=== PATIENT | female | born 1960 | race Caucasian/White ===

== ENCOUNTER → 2016-06-30 | Outpatient (CLI) | payer OTHER ==
[~2016-06-30] MED LIST: AMPH20TA2 PO; ATOR-24 PO; CETI10TA84 PO; CLX40 PO; CYCL10TA6 PO; DOXY100C76 PO; ERGO500037 PO; FERR1TAB13 PO; FLUT0.15; INSDGIPEN SC; INSUINJ4 SQ; IPRA0.06 NAE; LEVO25TA5 PO; MONT1TAB3 PO; NORT10CA2 PO; NORT50CA PO; NVLG SC; NVLGI SC; NYSCR30 EXT; ONDA4TAB46 PO; OXYC-57 PO; PANT40TA PO; PSEU30TA20 PO; RIZA10TA18 PO; RQP/2 PO; VTMD PO; ZOLP10TA PO
[2016-06-30 13:27] LABS: CALCIUM 9.7 mg/dl (8.5-10.1)
[2016-06-30 13:31] LABS: ALT/SGPT 26 U/L (12-78); AST/SGOT 15 U/L (15-37); BLOOD UREA NITROGEN 12 mg/dl (7-18); CARBON DIOXIDE 24 mmol/L (21-32); CHLORIDE 104 mmol/L (98-107); CREATININE 0.93 mg/dl (0.60-1.20); GLUCOSE 166 mg/dl (70-99); POTASSIUM 4.4 mmol/L (3.5-5.1); SODIUM 136 mmol/L (136-145)
[2016-06-30 13:40] LABS: ALB/GLOB RATIO 1.2 (0.9-2); ALKALINE PHOSPHATASE 121 U/L (45-117)
[2016-06-30 14:15] LABS: ESTIMATED AVERAGE GLUCOSE 194 mg/dl; HA1C FLAG Normal (Normal)
== END | disposition home or self-care (01) ==
LOC: C.LAB1850 11:47
PROVIDERS: ATTEND Nurse Practitioner Adult Health
DX: I10 Essential (primary) hypertension (principal); E78.5 Hyperlipidemia, unspecified; E11.9 Type 2 diabetes mellitus without complications

== ENCOUNTER → 2016-08-31 | Outpatient (CLI) | payer OTHER ==
[2016-08-31 17:38] LABS: BLOOD UREA NITROGEN 12 mg/dl (7-18); CREATININE 0.87 mg/dl (0.60-1.20)
== END | disposition home or self-care (01) ==
LOC: C.LAB1850 16:51
PROVIDERS: ATTEND Physician Assistant
DX: E11.9 Type 2 diabetes mellitus without complications (principal)

== ENCOUNTER → 2016-09-02 | Outpatient (CLI) | payer OTHER ==
[~2016-09-02] MED LIST changes: +GADAVIST IV PRN
--- NOTE | 2016-09-02 16:36 | DIAGNOSTIC IMAGING REPORT ---
Brain MRI WITH AND WITHOUT CONTRAST HISTORY: Chronic headaches. R41.3 Memory lossR93.8 Abnormal TECHNIQUE: Multiplanar multisequence MRI of the brain was performed both before and after the intravenous administration of contrast. COMPARISON STUDY: None. FINDINGS: There are no areas of restricted diffusion to suggest acute infarction. The midline structures are intact. The paranasal sinuses are clear. The mastoid air cells are clear. The ventricles and sulci are within normal limits for age. There is no mass, hematoma, midline shift. The major vascular flow-voids at the skull base are well maintained. Postcontrast sequences show no areas of abnormal enhancement. There are few scattered punctate foci of T2 hyperintensity seen within the white matter of the supratentorial brain. Best seen on axial image 8 of 22 there is an accessory artery extending from the right intracranial internal carotid artery to the basilar artery. This is consistent with a persistent trigeminal artery. IMPRESSION: 1. No acute intracranial abnormality. 2. A few punctate scattered foci of T2 hyperintensity seen within the periventricular and subcortical white matter are nonspecific but favor mild microvascular ischemic change. Migraines or Lyme disease could also have a similar appearance. 3. 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 Electronically signed by: Jerad Green M.D. 09/02/2016 4:34 PM Dictated Date/Time: 09/02/2016 4:27 PM
== END | disposition home or self-care (01) ==
LOC: C.MRI 15:34
PROVIDERS: ATTEND Physician Assistant
DX: R41.3 Other amnesia (principal); R93.8 Abnormal findings on diagnostic imaging of other specified body structures

== ENCOUNTER → 2016-10-23 | Outpatient (CLI) | payer OTHER ==
[~2016-10-23] MED LIST changes: -GADAVIST IV PRN
[2016-10-23 18:46] LABS: CHOLESTEROL/HDL RATIO 3.9; THYROID STIMULATING HORMONE 0.506 uIu/ml (0.300-4.500)
[2016-10-24 07:04] LABS: ESTIMATED AVERAGE GLUCOSE 212 mg/dl; HA1C FLAG Normal (Normal)
== END | disposition home or self-care (01) ==
LOC: C.LAB1850 16:58
PROVIDERS: ATTEND Nurse Practitioner Adult Health
DX: E11.9 Type 2 diabetes mellitus without complications (principal); E78.5 Hyperlipidemia, unspecified; E03.9 Hypothyroidism, unspecified; E55.9 Vitamin D deficiency, unspecified

== ENCOUNTER → 2016-11-13 | Outpatient (CLI) | payer OTHER ==
[~2016-11-13] VITALS: Ht 160 cm; Wt 76.3 kg
[2016-11-13 15:13] VITALS: BP 123/79; PULSE 118; Ht 160 cm; Wt 76.3 kg
== END | disposition home or self-care (01) ==
LOC: C.NEUR 15:03
PROVIDERS: ATTEND Internal Medicine Pulmonary Disease
DX: G47.30 Sleep apnea, unspecified (principal)

== ENCOUNTER → 2016-11-16 | Outpatient (CLI) | payer OTHER ==
--- NOTE | 2016-11-17 06:14 | PAP/PSG TECHNICIAN REPORT ---
[facility] Geospatial Intelligence Analyst Polysomnogram Report Study name: None Report date: 11/17/2016 Study date: 11/16/2016 Referring Physician: Anderson Isaac M.D. Name: JUDY RICHARDSON Interpreting Physician: Anderson Isaac M.D. Date of : 1960 Geospatial Intelligence Analyst: Asmita Mckeon RPS. Sex: Female Age: 56 StudyType: PSG Weight: 168 lbs Height: 56 years, Height 5' 3" Neck Circum: 15 inches BMI: 29.76 Medications: Josefina tabs, Atorvastatin Calcium 40 mg, Celexa 40 mg, Cyclobenzaprine 10 mg, Flonase 50 MCG/ACT, Ipratropium [place] 0.06%, Lamotrigine 25 mg, Levothyroxine Sodium 25 MCG, NovoLog, Nystatin, Ondansetron 4 mg, Oxycodone-Acetaminophen 5-325 mg, Protonix 40 mg, Rizatriptan Benzoate 10 mg, Ropinerole 2 mg, Sudafed, Vitamin D, Zolpidem Tartrate 10 mg Patient History 56 yr. old female here for a diagnostic sleep study in room 5. Patient has used CPAP in the past, however she was not compliant. She would like to switch DME's and restart treatment with proper mask. Patients [place] Sleepiness Scale Score is 5/24. Parameters Monitored NPSG: E1-M2, E2-M1, Fp1-M2, Fp2-M1, F3-M2, F4-M2, F4-M1, C3-M2, C4-M2, C4-M1, O1-M2, O2-M2, O2-M1, T3-M2, T4-M1, P3-M2, P4-M1, CHIN1, CHIN2, HR, EKG, Legs, PFLOW, SNOR, FLOW, CFLOW, Tidal Volume, THOR, ABDO, SpO2, PLTH, CPRESS, ETCO2 Wave, ETCO2, pH Sleep Architecture Sleep Stages Time at Lights Off 10:02:29 PM STAGES Time (min.) TST (%) Time at Lights On 5:31:59 AM Wake 62.5 -- Total Recording Time (TRT) 449.50 min. N1 44.0 11 Total Sleep Period (TSP) 445.5 min. N2 298.5 77 Total Sleep Time (TST) 387.0min. N3 44.5 11 Awake Time 62.5 min. REM 0.0 0 Wake after Sleep Onset 58.5 min. Sleep Efficiency (SE) 86 % Sleep Onset Latency (KIKI) 4.0 min. Number of Stage 1 Shifts None Awakenings 46 Stage Changes 174 Number of REM periods N/A REM 0.0 0 REM Latency NONE min. NREM 387.0 100 Body Position Analysis Supine Right Left Side Prone Vertical Total Sleep Time (min.) 86.4 45.6 268.0 313.64 0.0 0.0 Total Sleep Time (%) 19% 12% 69% 81 0% N/A% Total Sleep Time REM (min.) 0.0 0.0 0.0 None 0.0 0.0 Total Sleep Time NREM (min.) 73.4 45.6 268.0 None 0.0 0.0 Intermittent Wake (min.) 13.1 7.8 41.6 None 0.0 0.0 Total Sleep Period (%) 19% None None None None None Arousals Myoclonus (PLM) * Events Count Index Events Count Index Spontaneous 8 1 Events Awake (PLMW) 41 39.4 Respiratory 13 2.9 Events Asleep w/ Arousal (PLMA) 10 1.6 PLM 9 2 Events Asleep w/o Arousal (PLMS) 50 7.8 Snoring 20 3 Total Asleep 60 9.3 Total 49 8 Total 101 13 Respiratory Analysis * CA OA MA CH H RERA Total Count 7 3 3 0 165 0 178 Index 1.1 0.5 0.5 0 25.6 0 27.6 Mean Duration 11.2 15.5 12.9 0.00 18.7 0.0 18.2 Longest Duration 12.5 17.6 15.8 0.00 15.8 0.0 57.7 Respiratory Event Summary Total Supine ~Supine Right Left Prone REM NREM Apneas Count 13 8 5 0 5 N/A N/A 13 Index 2.0 7 1 0.0 1.1 N/A N/A 2 Hypopneas (4% Desat) Count 165 36 129 3 126 N/A N/A 165 Index 25.6 29.4 25 3.9 28.2 N/A N/A 25.6 Apneas & All Hypopneas Count 178 44 134 3 131 N/A N/A 178 Index 27.6 36 26 4 29 N/A N/A 27.6 Respiratory Events (Space And Storage Clerk+All Hyp+RERA) Count 178 44 134 3 131 N/A N/A 178 Index 27.6 36 26 3.9 29.3 N/A N/A 27.6 Respiratory Related Arousal Count 13 44 14 2 12 N/A N/A 19 Index 2.9 4 3 3 3 N/A N/A 3 Snoring Analysis Supine Right Left Prone REM NREM Total Snore duration 29.5 min Snores count 164 54 1,104 N/A N/A 1,322 1,322 Snore mean duration 1.3 Sec Snores index 134 71 247 N/A N/A 205.0 205.0 TST with snoring (%) 7.6% Desaturation Event Summary: Minimum %SpO2 Event Count Mean/Min/Max Duration(sec.) Desaturation Index % Time In Bed > 90 231 25.4 / 7.0 / 60.0 61.8 50.2 86 - 90 44 25.3 / 8.5 / 57.5 12.1 48.8 81 - 85 0 N/A 0.0 1.0 76 - 80 0 N/A 0.0 0.0 71 - 75 0 N/A 0.0 0.0 66 - 70 0 N/A 0.0 0.0 61 - 65 0 N/A 0.0 0.0 56 - 60 0 N/A 0.0 0.0 51 - 55 0 N/A 0.0 0.0 < 50 0 N/A 0.0 0.0 Total REM NREM Awake <50% 0.0 min. 0.0 min. 0.0 min. 0.0 min. 51 - 60% 0.0 min. 0.0 min. 0.0 min. 0.0 min. 61 - 70% 0.0 min. 0.0 min. 0.0 min. 0.0 min. 71 - 80% 0.0 min. 0.0 min. 0.0 min. 0.0 min. 81 - 90% 222.4 min. 0.0 min. 204.2 min. 18.3 min. 91 - 100% 224.4 min. 0.0 min. 182.3 min. 42.1 min. Average 91 0 90 92 Minimum SpO2 84 N/A 84 84 Desaturation Event Index 32.6 0.0 33.2 33.6 # Desat. Events below 89% 103 N/A 91 12 Time(%) with Saturation below 89% 20.3 0.0 18.7 1.6 Time(min.) with Saturation below 89% 90.8 0.0 83.5 7.3 Time (mins) REM (mins) NREM (mins) % of TST SpO2 Below 90% 184 N/A N184 35.0 SpO2 Below 88% 40 0 0 11 Heart Rate Analysis Min (bpm) Max (bpm) Average (bpm) Awake 82 110 97 NREM 82 107 94 REM N/A N/A N/A Overall 82 107 94 Supplemental O2 Values Minimum O2 level: None Value Start Time End Time Geospatial Intelligence Analyst Comments MS. Richardson slept in the right, left, and supine positions. No cardiac arrhythmia or PLMs noted. No bruxism noted. Snoring was noted and scored as a 4 on a scale of 0 through 5. (0=no snoring, 5=snoring loud enough to be heard through a closed door or down the lopez way) MS. Richardson did not wake to use the restroom during the night. She did have a long wake period, that when she checked her blood sugar it was low and had a snack. The final report will be interpreted and signed by a sleep physician. The completed physician report will then be placed in the patient medical record. Therapy (cm H2O) 0 TIB (min.) 449.5 TST (min.) 387.0 Sleep Onset (min.) 4.0 REM Onset From Sleep (min.) NONE Sleep Efficiency % 86 Wakefulness (%) 14 Wakefulness (min.) 62.5 NREM 1 (%) 11 NREM 1 (min.) 44.0 NREM 2 (%) 77 NREM 2 (min.) 298.5 NREM 3 (%) 11 NREM 3 (min.) 44.5 REM (%) 0 REM (min.) 0.0 # Arousals 49 Arousal Index 8 # Snore 1,322 Snore Index 205.0 AHI 27.6 AHI Supine 36 AHI Non-Supine 26 NREM AHI 27.6 REM AHI N/A RDI 27.6 # Obstructive Apnea 3 # Central Apnea 7 # Mixed Apnea 3 # Hypopneas 165 RERAs 0 Total Respiratory Events 195 Time Below SpO2 89% (min.) 83.5 Mean NREM SpO2 (%) 90 Mean REM SpO2 (%) N/A Mean Sleep SpO2 (%) 90 Min NREM SpO2 (%) 84 Min REM SpO2 (%) N/A Position Supine (min.) 86.4 Position Non-supine (min.) 313.6 LM Index Sleep 9.3 LM Index NREM 9.3 LM Index REM N/A Mean Heart Rate (bpm) 94 Min Heart Rate (bpm) 82
--- NOTE | 2016-11-18 08:58 | POLYSOMNOGRAPH REPORT ---
CLINICAL DATA: A 56-year-old female with BMI of 29.76 referred by myself, Dr. Sams and Dr. Og for evaluation of sleep apnea. She has had a history of sleep apnea in the past but has been noncompliant with CPAP because of recurrent nasal symptoms. It was felt that she has been off of her treatment long enough that a baseline documentation of her degree of her sleep apnea was needed prior to moving forward with a new DME provider and new CPAP machine. Her [place] Sleepiness Score is 5/24. SLEEP ARCHITECTURE: Total recording time was 449.5 minutes. Total sleep period was 445.5 minutes. Total sleep time was 387 minutes, all non-REM sleep. Sleep onset latency was 4 minutes. Sleep efficiency was 86%. Wake after sleep onset was 58.5 minutes. Sleep consisted of stage N1 11%, stage N2 77%, and stage N3 11%. AROUSAL DATA: Forty-nine arousals were recorded for an index of 8 per hour. PLM DATA: Sixty limb movements during sleep were noted for an index of 9.3 per hour with arousal index of 1.6 per hour. RESPIRATORY DATA: Moderate sleep apnea was documented. The AHI was 27.6. There were 7 central, 3 obstructive, and 3 mixed apneic episodes. The longest apneic episode was 17.6 seconds. There were 165 hypopneic episodes with a mean duration of 18.7 seconds. OXIMETRY DATA: Nocturnal hypoxemia was seen. Oxygen sean was 84% during non-REM sleep. The mean saturation was 91%. Time below 88% was 40 minutes. EKG: Heart rates ranged from 82-107 beats per minute. No arrhythmias were noted. SCHOOL BUS INSPECTOR'S COMMENTS: The patient slept in the right, left, and supine position. Snoring was severe, rated 4 on a scale of 1-5. She had a very long wake period in the middle of the night. She did check her blood sugar and had a snack because it was low. IMPRESSION: Moderate sleep apnea/hypopnea with an AHI of 27.6 with nocturnal hypoxemia. RECOMMENDATIONS: The patient may benefit from a repeat sleep study with CPAP or use of auto CPAP. [facility]
== END | disposition home or self-care (01) ==
LOC: C.NEUR 20:00
PROVIDERS: ATTEND Internal Medicine Pulmonary Disease
DX: G47.36 Sleep related hypoventilation in conditions classified elsewhere (principal)

== ENCOUNTER 2016-12-03 09:53 | Emergency (ER) | payer OTHER ==
[~2016-12-03] VITALS: Ht 160 cm; Wt 76.7 kg
[~2016-12-03 09:53] MED LIST changes: -AMPH20TA2 PO; -ERGO500037 PO; -INSDGIPEN SC; -LEVO25TA5 PO; -NVLG SC; -ONDA4TAB46 PO; -PANT40TA PO
[2016-12-03 10:11] VITALS: TEMP 37; Ht 160 cm; Wt 76.7 kg
[2016-12-03] MEDS ORDERED: PANT40TA PO (11:13)
[2016-12-03] MEDS ORDERED: LEVO25TA5 PO (11:14)
--- NOTE | 2016-12-03 11:18 | EMERGENCY ROOM VISIT NOTE ---
ED Visit Note First contact with patient: 10:56 CHIEF COMPLAINT: Rib injury HISTORY OF PRESENT ILLNESS: This 56-year-old female patient presents to the emergency department ambulatory, complaining of pain in the right ribs after bending over to clean a chest freezer 3 days ago. She states she has had chronic discomfort on the right side of her ribs with certain movements for a long period of time. She has seen her PCP regarding the pain before, was told it seems to be a piece of fat which gets stuck between the ribs and causes discomfort. The patient states Wednesday afternoon, she was bending over to scrape ice out of the freezer, when she felt a crack in her right rib. She states this was similar to the symptoms she has had experienced before. She states symptoms have not lingered more than a few minutes, but this time they are worsening since Wednesday. The patient does go to pain management, and is on chronic oxycodone regarding her chronic pain. She states this is not helping with the pain in her ribs. There is increased pain with deep breathing or coughing. Attempting to sit up from a lying position is painful. Denies shortness of breath or coughing up blood. The patient rates the pain as sharp and 5/10. The patient has taken her normal pain medication without relief of the pain. No previous fractures to the ribs. The patient denies any other injury. The patient denies any abdominal pain, nausea, or vomiting. REVIEW OF SYSTEMS: A 6 system review of systems was completed with positives and pertinent negatives listed in the HPI. ALLERGIES: Procaine, gabapentin, duloxetine, pregabalin MEDICATIONS: Please see list. I did personally review the patient's medication list with her at bedside. PMH: Diabetes, restless leg syndrome, hyperlipidemia, sleep apnea, Lyme disease which has caused chronic memory problems, fibromyalgia SOCIAL HISTORY: The patient lives locally with family. She denies drug or tobacco use. She does admit to very occasional alcohol use. PHYSICAL EXAM: VITALS: Vitals are noted on the nurse's note and reviewed by myself. Vital signs stable. GENERAL: This is a 56-year-old, obese white female, in no acute distress, nondiaphoretic, well-developed well-nourished. LUNGS: Clear to auscultation and breath sounds equal, no wheezes, rales, or rhonchi. HEART: Heart sounds are regular without murmurs, ectopy, gallop, or rub. CHEST: The right chest wall is tender to palpation over the 7-10 ribs but there is no fracture crepitus and no ecchymosis. There is no tachypnea or dyspnea. ABDOMEN: Positive bowel sounds x 4. Normal tympanic percussion. Soft, nontender, without masses or organomegaly. No guarding or rebound tenderness. NEURO: Patient was alert and oriented to person place and time. RADIOLOGY: X-Ray Right Ribs: R RIBS UNILATERAL WITH PA CHEST HISTORY: 56 years-old Female right rib pain acute right-sided rib pain. No reported trauma. COMPARISON: Chest radiograph 05/18/2014 TECHNIQUE: Frontal view of the chest with 4 views of the right ribs FINDINGS: Cardiac silhouette is upper limits of normal. No pneumothorax or pleural effusion. Linear subsegmental left basilar opacity suggests atelectasis. Retrocardiac opacity with central lucency suggests hiatal hernia with partially intrathoracic stomach. There is sigmoidal scoliosis of the thoracic lumbar spine. Ribs appear intact without acute fracture identified. IMPRESSION: 1. Subsegmental left basilar atelectasis without acute cardiopulmonary process. 2. No acute rib fracture or pneumothorax identified. 3. Sigmoidal scoliosis of the thoracolumbar spine. 4. Hiatal hernia. The above report was generated using voice recognition software. It may contain grammatical, syntax or spelling errors. Electronically signed by: Mitchel Russell M.D. 12/03/2016 12:01 PM Dictated Date/Time: 12/03/2016 11:58 AM EMERGENCY DEPARTMENT COURSE: I examined the patient. X-rays of the chest with right rib detail was reviewed by myself and radiologist and show no acute fractures. X-ray did show some left bibasilar atelectasis and hiatal hernia. I did discuss these findings with the patient at bedside. Encourage the patient to use the incentive spirometer she has at home to ensure she is taking big deep breaths to prevent further atelectasis and pneumonia. I did offer to provide the patient with a new spirometer, and she states she does not needed. The patient is currently following with pain management, so I advised her to continue with her treatment plan as outlined by them. The patient was discharged home in good condition. Patient was found to have normal blood pressure on screening and does not require follow-up. I attest that I have personally reviewed the patient's current medication list. DIFFERENTIAL DIAGNOSIS: Rib fracture, rib contusion, chest wall contusion, pneumonia, pleural effusion, pulmonary embolism, malignancy, and others DIAGNOSIS: Rib contusion TREATMENT and DISCHARGE INSTRUCTIONS: You have been treated in the Emergency Department for Rib Pain. X-ray did not show any acute fracture. Please continue to follow with your paint mixer regarding ongoing pain control. For pain control, you can use the following [id number] medicines (if >12 yo): - Regular strength (325mg/tab) Tylenol (acetaminophen) 2 tabs every 4-6 hours as needed. Do not exceed 9 tablets in a 24 hour period. Avoid taking more than 3 grams (3000 mg) of Tylenol per day. This includes any other sources of acetaminophen you may take on a regular basis. - Regular strength ibuprofen 600mg every 6 hours as needed. Do not exceed a dose of 2400 mg per day. As discussed, anti-inflammatory medications will help to decrease the inflammation and pain in your ribs. If this is an acute injury, ice can be applied to the area of pain for the first 3 days to help decrease pain and inflammation. After the first 3 days, a heating pad can be used over the area for continued soothing relief. You should schedule a follow-up appointment in 2-3 days with your Primary Care Provider for further evaluation and treatment of your rib pain. Hugging a pillow while coughing or sneezing can help to reduce your pain. Be sure to continue taking occasional deep breaths to help expand your lungs to reduce the risk of developing pneumonia. You may use the spirometer you have at home. Return to the Emergency Department if your current symptoms worsen despite treatment course outlined above, or if you develop any of the following symptoms : intractable pain despite aforementioned treatment course, loss of control of your bowel or bladder, numbness or tingling in your groin, or development of a fever. Problem List Medical Problems: (1) Diabetes Status: Chronic (2) Fibromyalgia Status: Chronic (3) Lyme disease Status: Chronic Current/Historical Medications Scheduled Amphetamine-Dextroamphetamine 20MG (Adderall 20MG), 20 MG PO BID Atorvastatin (Lipitor), 40 MG PO HS Cetirizine (Zyrtec), 10 MG PO HS Citalopram (Citalopram Hydrobromide), 1 TAB PO HS Cyclobenzaprine Hcl (Flexeril), 10 MG PO QID Ergocalciferol (Vitamin D 06947 Unit), 50,000 UNIT PO WK Ferrous Sulfate (Kp Ferrous Sulfate), 1 TAB PO 3XWK Fluticasone Propionate (Nasal) (Flonase Allergy Relief), 2 SPRAYS NA QAM Insulin Aspart (Novolog), 1 DOSE SC UD Insulin Glargine (Lantus Solostar), 55 SC DAILY Levothyroxine Sodium (Levothyroxine Sodium), 25 MCG PO QAM Nystatin (Nystatin Cream), Unknown Dose EXT WK Ropinirole Hydrochloride (Requip), 4 MG PO HS Scheduled PRN Ipratropium [place] (Nasal) (Ipratropium [place]), 0.66 SPRAY RHEA WK PRN for SEASONAL ALLERGIES Ondansetron Hcl (Zofran), Unknown Dose PO DAILY PRN for Nausea Oxycodone/Acetaminophen 5MG/325MG (Percocet 5MG/325MG), 1 TABLET PO UD PRN for Pain Pantoprazole (Protonix), 40 MG PO DAILY PRN for Nausea Pseudoephedrine (Sudafed), 30 MG PO TID-QID PRN for SINUS ISSUES Rizatriptan Benzoate (Maxalt), 10 MG PO QAM PRN for Migraine Zolpidem Tartrate (Ambien), 10 MG PO HS PRN for Sleep Allergies Coded Allergies: Pregabalin (Verified Allergy, Mild, LEG SWELLING, 12/03/16) CI Pigment Blue 63 (Verified Allergy, Unknown, LEG SWELLING, 12/03/16) Duloxetine (Verified Allergy, Unknown, LEG SWELLING, 12/03/16) Gabapentin (Verified Allergy, Unknown, HANDS AND JOINT SWELLING, 12/03/16) Procaine (Verified Adverse Reaction, Unknown, 'low grade fever', 12/03/16) Vital Signs Date Time Temp Pulse Resp B/P (MAP) Pulse Ox O2 Delivery O2 Flow Rate FiO2 12/03/16 12:13 95 18 120/78 95 Room Air 12/03/16 10:11 37.0 84 18 139/79 96 Room Air Departure Information Impression Primary Impression: Contusion of rib on right side Dispostion Home / Self-Care Condition GOOD Referrals Lenka, Eliu S,D.O. (PCP) Patient Instructions ED Contusion Vs Minor Fx Rib, [facility] Additional Instructions You have been treated in the Emergency Department for Rib Pain. X-ray did not show any acute fracture. Please continue to follow with your paint mixer regarding ongoing pain control. For pain control, you can use the following [id number] medicines (if >12 yo): - Regular strength (325mg/tab) Tylenol (acetaminophen) 2 tabs every 4-6 hours as needed. Do not exceed 9 tablets in a 24 hour period. Avoid taking more than 3 grams (3000 mg) of Tylenol per day. This includes any other sources of acetaminophen you may take on a regular basis. - Regular strength ibuprofen 600mg every 6 hours as needed. Do not exceed a dose of 2400 mg per day. As discussed, anti-inflammatory medications will help to decrease the inflammation and pain in your ribs. If this is an acute injury, ice can be applied to the area of pain for the first 3 days to help decrease pain and inflammation. After the first 3 days, a heating pad can be used over the area for continued soothing relief. You should schedule a follow-up appointment in 2-3 days with your Primary Care Provider for further evaluation and treatment of your rib pain. Hugging a pillow while coughing or sneezing can help to reduce your pain. Be sure to continue taking occasional deep breaths to help expand your lungs to reduce the risk of developing pneumonia. You may use the spirometer you have at home. Return to the Emergency Department if your current symptoms worsen despite treatment course outlined above, or if you develop any of the following symptoms : intractable pain despite aforementioned treatment course, loss of control of your bowel or bladder, numbness or tingling in your groin, or development of a fever. Problem Qualifiers Primary Impression: Contusion of rib on right side Encounter type: initial encounter Qualified Codes: S20.211A - Contusion of right front wall of thorax, initial encounter
[2016-12-03] MEDS ORDERED: ERGO500037 PO (11:22)
[2016-12-03] MEDS ORDERED: INSDGIPEN SC (11:25)
[2016-12-03] MEDS ORDERED: NVLG SC (11:28)
[2016-12-03] MEDS ORDERED: ONDA4TAB46 PO (11:30)
[2016-12-03] MEDS ORDERED: AMPH20TA2 PO (11:31)
--- NOTE | 2016-12-03 12:02 | DIAGNOSTIC IMAGING REPORT ---
R RIBS UNILATERAL WITH PA CHEST HISTORY: 56 years-old Female right rib pain acute right-sided rib pain. No reported trauma. COMPARISON: Chest radiograph 05/18/2014 TECHNIQUE: Frontal view of the chest with 4 views of the right ribs FINDINGS: Cardiac silhouette is upper limits of normal. No pneumothorax or pleural effusion. Linear subsegmental left basilar opacity suggests atelectasis. Retrocardiac opacity with central lucency suggests hiatal hernia with partially intrathoracic stomach. There is sigmoidal scoliosis of the thoracic lumbar spine. Ribs appear intact without acute fracture identified. IMPRESSION: 1. Subsegmental left basilar atelectasis without acute cardiopulmonary process. 2. No acute rib fracture or pneumothorax identified. 3. Sigmoidal scoliosis of the thoracolumbar spine. 4. Hiatal hernia. The above report was generated using voice recognition software. It may contain grammatical, syntax or spelling errors. Electronically signed by: Mitchel Russell M.D. 12/03/2016 12:01 PM Dictated Date/Time: 12/03/2016 11:58 AM
[2016-12-03 12:13] VITALS: BP 120/78; PULSE 95; O2SAT 95
== END 2016-12-03 12:32 | disposition home or self-care (01) ==
LOC: C.EDB 09:55
DX: S20.211A Contusion of right front wall of thorax, initial encounter (principal); E66.9 Obesity, unspecified; E11.9 Type 2 diabetes mellitus without complications; G25.81 Restless legs syndrome; E78.5 Hyperlipidemia, unspecified; M79.7 Fibromyalgia; G47.30 Sleep apnea, unspecified; A69.20 Lyme disease, unspecified; Z79.4 Long term (current) use of insulin; Z79.899 Other long term (current) drug therapy; W22.8XXA Striking against or struck by other objects, initial encounter; Y93.E9 Activity, other interior property and clothing maintenance

== ENCOUNTER → 2016-12-17 | Outpatient (CLI) | payer OTHER ==
[~2016-12-17] MED LIST changes: +AMPH20TA2 PO; -DOXY100C76 PO; +ERGO500037 PO; +INSDGIPEN SC; -INSUINJ4 SQ; +LEVO25TA5 PO; -MONT1TAB3 PO; -NORT10CA2 PO; -NORT50CA PO; +NVLG SC; -NVLGI SC; +ONDA4TAB46 PO; +PANT40TA PO; -VTMD PO
--- NOTE | 2016-12-18 06:08 | PAP/PSG TECHNICIAN REPORT ---
[facility] Brim Flexer Polysomnogram Report Study name: None Report date: 12/18/2016 Study date: 12/17/2016 Referring Physician: Anderson Isaac M.D. Name: JUDY RICHARDSON Monalisa Interpreting Physician: Anderson Isaac M.D. Date of : 1960 Brim Flexer: Itzel Palmer RPS. Sex: Female Age: 56 Study Type: PSG Weight: 164 lbs 15 in Height: 56 years, Height 5' 3" Neck Circum: BMI: 29.05 Medications: VINI, ATORVASTATIN 40 MG, CELEXA 40 MG, CYCLOBENZAPRINE 10 MG, FLONASE 50 MCG/ACT, IPRATROPIUM BORMIDE 0.06% NASAL SOLN, LAMOTRIGINE 25 MG, LANTUS SOLOSTAR 100 UNIT/ML, LEVOTHYROXINE 25 MCG, NOVOLOG FLEXPEN 100 UNIT/ML, NYSTATIN [id number] UNIT/GM, ONDANSETRON 4 MG, OXYCODONE-ACETAMINOPHEN, PROTONIX 40 MG, RIZATRIPTAN BENZOATE 10 MG, ROPINIROLE 2 MG, VIT D 06984 UNIT, ZOLPIDEM 10 MG Patient History 56 yr-old female here for an updated CPAP treatment study. She was previously non-compliant and is trying to start CPAP again. Her last test showed she had an AHI of 27 on 11/16/16. She is wearing a Calle FX nasal pillows mask size small from [employer]. She stated that her machine is over six years old and makes whistling noises. She also stated that she has had only two filter changes and one new hose over the course of those six years. The test was started on room air and 4 CMH2O. ETCO2 testing was not utilized during this study. Room 1 Parameters Monitored NPSG: E1-M2, E2-M1, Fp1-M2, Fp2-M1, F3-M2, F4-M2, F4-M1, C3-M2, C4-M2, C4-M1, O1-M2, O2-M2, O2-M1, T3-M2, T4-M1, P3-M2, P4-M1, CHIN1, CHIN2, HR, EKG, Legs, PFLOW, SNOR, FLOW, CFLOW, Tidal Volume, THOR, ABDO, SpO2, PLTH, CPRESS, ETCO2 Wave, ETCO2, pH Sleep Architecture Sleep Stages Time at Lights Off 10:55:43 PM STAGES Time (min.) TST (%) Time at Lights On 5:46:13 AM Wake 33.5 -- Total Recording Time (TRT) 410.50 min. N1 25.0 7 Total Sleep Period (TSP) 398.0 min. N2 248.5 66 Total Sleep Time (TST) 377.0min. N3 30.5 8 Awake Time 33.5 min. REM 73.0 19 Wake after Sleep Onset 21.0 min. Sleep Efficiency (SE) 92 % Sleep Onset Latency (KIKI) 12.5 min. Number of Stage 1 Shifts None Awakenings 10 Stage Changes 80 Number of REM periods 4 REM 73.0 19 REM Latency 68.0 min. NREM 304.0 81 Body Position Analysis Supine Right Left Side Prone Vertical Total Sleep Time (min.) 304.9 60.7 28.0 88.70 0.0 0.0 Total Sleep Time (%) 76% 16% 7% 24 0% N/A% Total Sleep Time REM (min.) 73.0 0.0 0.0 None 0.0 0.0 Total Sleep Time NREM (min.) 215.3 60.7 28.0 None 0.0 0.0 Intermittent Wake (min.) 16.6 3.9 13.0 None 0.0 0.0 Total Sleep Period (%) 74% None None None None None Arousals Myoclonus (PLM) * Events Count Index Events Count Index Spontaneous 15 2 Events Awake (PLMW) 23 41.2 Respiratory 9 1.4 Events Asleep w/ Arousal (PLMA) 6 1.0 PLM 6 1 Events Asleep w/o Arousal (PLMS) 91 14.5 Snoring 3 0 Total Asleep 97 15.4 Total 33 5 Total 120 18 Respiratory Analysis * CA OA MA CH H RERA Total Count 212 3 4 0 227 0 446 Index 33.7 0.5 0.6 0 36.1 0 71.0 Mean Duration 13.7 14.1 13.3 0.00 16.1 0.0 14.9 Longest Duration 27.4 15.7 15.1 0.00 15.1 0.0 33.6 Respiratory Event Summary Total Supine ~Supine Right Left Prone REM NREM Apneas Count 219 142 77 77 0 N/A 7 212 Index 34.9 30 52 76.1 0.0 N/A 6 42 Hypopneas (4% Desat) Count 227 199 28 14 14 N/A 10 217 Index 36.1 41.4 19 13.8 30.0 N/A 8.2 42.8 Apneas & All Hypopneas Count 446 341 105 91 14 N/A 17 429 Index 71.0 71 71 90 30 N/A 14.0 84.7 Respiratory Events (Summer Babysitter+All Hyp+RERA) Count 446 341 105 91 14 N/A 17 429 Index 71.0 71 71 89.9 30.0 N/A 14.0 84.7 Respiratory Related Arousal Count 9 341 4 4 0 N/A 0 9 Index 1.4 1 3 4 0 N/A 0 2 Snoring Analysis Supine Right Left Prone REM NREM Total Snore duration 1.4 min Snores count 40 7 3 N/A 6 44 50 Snore mean duration 1.6 Sec Snores index 8 7 6 N/A 4.9 8.7 8.0 TST with snoring (%) 0.4% Desaturation Event Summary: Minimum %SpO2 Event Count Mean/Min/Max Duration(sec.) Desaturation Index % Time In Bed > 90 526 16.7 / 5.5 / 58.8 103.2 74.8 86 - 90 11 20.9 / 6.8 / 57.3 6.4 25.2 81 - 85 0 N/A 0.0 0.0 76 - 80 0 N/A 0.0 0.0 71 - 75 0 N/A 0.0 0.0 66 - 70 0 N/A 0.0 0.0 61 - 65 0 N/A 0.0 0.0 56 - 60 0 N/A 0.0 0.0 51 - 55 0 N/A 0.0 0.0 < 50 0 N/A 0.0 0.0 Total REM NREM Awake <50% 0.0 min. 0.0 min. 0.0 min. 0.0 min. 51 - 60% 0.0 min. 0.0 min. 0.0 min. 0.0 min. 61 - 70% 0.0 min. 0.0 min. 0.0 min. 0.0 min. 71 - 80% 0.0 min. 0.0 min. 0.0 min. 0.0 min. 81 - 90% 102.9 min. 22.3 min. 80.4 min. 0.3 min. 91 - 100% 305.8 min. 50.7 min. 223.4 min. 31.7 min. Average 92 91 92 95 Minimum SpO2 86 86 86 90 Desaturation Event Index 77.0 22.2 97.3 12.5 # Desat. Events below 89% 148 6 140 2 Time(%) with Saturation below 89% 4.6 0.2 4.4 0.0 Time(min.) with Saturation below 89% 18.8 0.9 17.9 0.0 Time (mins) REM (mins) NREM (mins) % of TST SpO2 Below 90% 422 23 N399 14.0 SpO2 Below 88% 47 0 0 1 Heart Rate Analysis Min (bpm) Max (bpm) Average (bpm) Awake 71 108 91 NREM 65 103 84 REM 65 97 86 Overall 65 103 85 Supplemental O2 Values Minimum O2 level: None Value Start Time End Time Brim Flexer Comments Ms. Richardson slept in the right, left, and supine positions. No cardiac arrhythmias were noted. No bruxism noted. CPAP was initiated at +4 CMH2O and up-titrated to a level of +6 CMH2O, Cflex 2. She was having steady central apneas at that point, so she was then changed over to BiPAP at +8/4 CMH2O and up-titrated to a level of +18/8 CMH2O Biflex 2. Central apneas were still occurring through a BiPAP pressure of 12/5 CMH2O, so a rate was added at 13 BPM. As soon as the rate was added, the central apneas then turned into constant hypopneas. The hypopneas did not jen at any BiPAP pressure; however, they were better while she was on her sides. A Calle FX nasal pillows mask from [employer] was used until the leak became to great. She then switched to an AirFit P10 nasal pillows mask size small from [employer] during the titration She did not wake up to use the restroom during the night. Ms. Richardson stated that she did not sleep that well. The final report will be interpreted and signed by a sleep physician. The completed physician report will then be placed in the patient medical record. Therapy Event: Therapy (cm H20) 4 6 8/4 10/5 12/5 13/5 15/5 17/7 18/8 Total Time at Pressure (min.) 35.1 28.1 79.6 7.4 60.9 54.7 26.1 77.8 40.8 TST at Pressure (min.) 21.6 25.6 79.6 7.4 59.9 54.7 26.1 74.3 27.8 # Periods 1 1 1 1 1 1 1 1 1 Sleep Onset (min.) 12.5 0.0 0.0 0.0 0.0 0.0 0.0 0.0 0.0 REM Onset (min.) N/A N/A 17.3 N/A N/A 34.4 0.0 68.6 N/A Sleep Efficiency % 61 91 100 100 98 100 100 95 68 Wakefulness (%) 38.5 8.9 0.0 0.0 1.6 0.0 0.0 4.5 31.9 Wakefulness (min.) 13.5 2.5 0.0 0.0 1.0 0.0 0.0 3.5 13.0 NREM 1 (%) 17.1 10.7 0.0 0.0 5.8 0.9 11.5 5.4 11.7 NREM 1 (min.) 6.0 3.0 0.0 0.0 3.5 0.5 3.0 4.2 4.8 NREM 2 (%) 44.4 80.5 44.7 100.0 87.7 12.6 83.9 79.8 56.4 NREM 2 (min.) 15.6 22.6 35.6 7.4 53.4 6.9 21.9 62.1 23.0 NREM 3 (%) 0.0 0.0 0.0 0.0 4.9 50.3 0.0 0.0 0.0 NREM 3 (min.) 0.0 0.0 0.0 0.0 3.0 27.5 0.0 0.0 0.0 REM (%) 0.0 0.0 55.3 0.0 0.0 36.2 4.6 10.3 0.0 REM (min.) 0.0 0.0 44.0 0.0 0.0 19.8 1.2 8.0 0.0 # Arousals 5 9 1 0 5 1 3 6 3 Arousal Index 13.9 21.1 0.8 0.0 5.0 1.1 6.9 4.8 6.5 # Snore 3 3 1 1 8 9 5 17 3 Snore Index 8.3 7.0 0.8 8.1 8.0 9.9 11.5 13.7 6.5 AHI 130.6 140.4 49.0 121.6 119.3 80.1 68.9 18.6 30.2 AHI Supine N/A 117.4 49.0 121.6 119.3 80.1 68.9 20.7 N/A AHI Non-Supine 130.6 158.3 N/A N/A N/A N/A N/A 14.4 30.2 NREM AHI 130.6 140.4 96.0 121.6 119.3 111.8 72.2 19.9 30.2 REM AHI N/A N/A 10.9 N/A N/A 24.3 0.0 7.5 N/A RDI 130.6 140.4 49.0 121.6 119.3 80.1 68.9 18.6 30.2 # Obstructive 0 2 0 0 1 0 0 0 0 # Central Ap 41 54 52 0 63 0 0 2 0 # Mixed 0 2 0 0 2 0 0 0 0 # Hypopneas 6 2 13 15 53 73 30 21 14 RERAS 0 0 0 0 0 0 0 0 0 Total Respiratory Events 47 60 65 15 119 73 30 23 14 Time Below SpO2 89.00% (min.) 1.6 0.3 0.9 0.0 2.1 4.3 4.1 5.5 0.1 Mean NREM SpO2 (%) 92 93 93 92 93 92 91 91 93 Mean REM SpO2 (%) N/A N/A 91 N/A N/A 91 90 92 N/A Mean Sleep SpO2 (%) 92 93 92 92 93 91 91 91 93 Min NREM SpO2 (%) 87 88 87 89 87 86 86 86 88 Min REM SpO2 (%) N/A N/A 86 N/A N/A 87 89 89 N/A Position Supine (min.) 0.0 11.2 79.6 7.4 59.9 54.7 26.1 49.4 0.0 Position Non-supine (min.) 21.6 14.4 0.0 0.0 0.0 0.0 0.0 24.9 27.8 LM Index Sleep 2.8 37.4 28.6 73.0 9.0 4.4 2.3 12.9 6.5 LM Index NREM 2.8 37.4 57.3 73.0 9.0 5.2 0.0 10.0 6.5 LM Index REM N/A N/A 5.5 N/A N/A 3.0 49.7 37.5 N/A Mean Heart Rate (bpm) 94 92 89 89 83 83 83 81 77 Min Heart Rate (bpm) 72 76 71 83 67 71 76 65 70 CPAP REPORT Therapy Detail Time / Page # Comment CPAP 4 cm H2O Nasal Pillow Mask Flex Pressure Relief Humidifier on 10:52:43 PM / pg. 290 CPAP 6 cm H2O Nasal Pillow Mask Flex Pressure Relief Humidifier on 11:30:49 PM / pg. 366 INCREASED PRESSURE FOR SOME HYPOPNEAS ALTHOUGH MOST EVENTS HAVE BEEN CENTRAL APNEAS BiLevel 8/4 cm H2O Nasal Pillow Mask Flex Pressure Relief Humidifier on 11:58:58 PM / pg. 422 HER CENTRAL APNEA COUNT IS MORE THAN 50% OF HER TOTAL EVENTS. SWTICHING TO BIPAP DUE TO CENTRAL APNEAS BiLevel 10/5 cm H2O Nasal Pillow Mask Flex Pressure Relief Humidifier on 1:18:34 AM / pg. 581 INCREASED IPAP FOR HYPOPNEAS AND INCREASED EPAP TO KEEP THE PRESSURE DIFFERENTIAL AT 5 BiLevel 12/5 cm H2O Nasal Pillow Mask Flex Pressure Relief Humidifier on 1:25:58 AM / pg. 596 INCREASED IPAP FOR HYPOPNEAS BiLevel 12/5 cm H2O, Rate 13 bpm Nasal Pillow Mask Flex Pressure Relief Humidifier on 2:02:19 AM / pg. 669 TRYING A RATE OF 13 BPM FOR CENTRALS BiLevel 13/5 cm H2O, Rate 13 bpm Nasal Pillow Mask Flex Pressure Relief Humidifier on 2:26:50 AM / pg. 718 INCREASED IPAP FOR CONTINUOUS HYPOPNEAS AFTER ADDING THE RATE BiLevel 15/5 cm H2O, Rate 13 bpm Nasal Pillow Mask Flex Pressure Relief Humidifier on 3:21:31 AM / pg. 827 AFTER THE RATE WAS ADDED, CONSTANT HYPOPNEAS INCREASED IPAP DUE TO THE HYPOPNEAS BiLevel 17/7 cm H2O, Rate 13 bpm Nasal Pillow Mask Flex Pressure Relief Humidifier on 3:47:39 AM / pg. 879 INCREASED IPAP FOR HYPOPNEAS AND INCREASED EPAP TO KEEP THE MAX PRESSURE DIFFERENTIAL OF 10 BiLevel 18/8 cm H2O, Rate 13 bpm Nasal Pillow Mask Flex Pressure Relief Humidifier on 5:05:26 AM / pg. 1035 INCREASED IPAP FOR HYPOPNEAS AND INCREASED EPAP TO KEEP THE MAX PRESSURE DIFFERENTIAL TO 10
--- NOTE | 2016-12-21 12:08 | POLYSOMNOGRAPH REPORT ---
CLINICAL DATA: A 56-year-old female with a BMI of [address] Eliu Og, Rhona Gaston and myself for a CPAP study. She was previously noncompliant with CPAP and is going to try again. She had a baseline study done on 11/16/2016 which showed moderate ZAN with an AHI of 27. Her current machine is over 6 years old and not working correctly. She has only had 2 filter changes and one new hose over the course of 6 years. SLEEP ARCHITECTURE: Total sleep period was 398 minutes. Total sleep time was 377 minutes divided between 304 minutes of non-REM sleep and 73 minutes of REM sleep. Sleep onset latency was 12.5 minutes. REM latency was 68 minutes. Sleep efficiency was 92%. Wake after sleep onset was 21 minutes. Sleep consisted of stage N1 7%, stage N2 66%, stage N3 8%, and REM 19%. AROUSAL DATA: Thirty three arousals recorded for an index of 5 per hour. PERIODIC LIMB MOVEMENTS DATA: Ninety seven limb movements during sleep were noted for an index of 15.4 per hour with arousal index of 1 per hour. RESPIRATORY DATA: The AHI was 71. There were 212 central, 3 obstructive, and 4 mixed apneic episodes. The longest duration of apnea was 27.4 seconds. There were 227 hypopneic episodes. The mean duration of hypopnea was 16.1 seconds. OXIMETRY DATA: Nocturnal hypoxemia was seen. Oxygen sean was 86% during REM. The mean saturation was 92%. Time below 88% was 47 minutes. ELECTROCARDIOGRAM: Heart rates ranged from 65-103 beats per minute. No arrhythmias were noted. PRINCIPAL PROCESS ENGINEER'S COMMENTS AND TREATMENT SUMMARY: The patient slept in the right, left, and supine positions. CPAP was started at 4 cm of water pressure and titrated up to 6 cm of water pressure, C-Flex 2. However, at that point, she had almost continuous treatment onset central apneas. She was then changed to BIPAP 8/4 and was titrated up to a final pressure setting of BiPAP 18/8, Bi-Flex setting 2. At 12/5, a backup rate of 13 breaths per minute was added. Even at her final pressure setting of BIPAP 18/8 with a backup rate of 13, she had an AHI of 30.2. She was switched from Calle FX nasal pillows to an AirFit P10 nasal pillow, size small from [employer]. She did not sleep well during this titration study. IMPRESSION: Moderate sleep apnea/hypopnea with an incomplete PAP titration study. The patient was started on CPAP but developed complex sleep apnea with frequent central apneas due to treatment. She was taken up to a final pressure sitting on BiPAP 18/8, Biflex 2 with a backup rate of 13 breaths minutes. However, even at that level, she did not have control of her sleep apnea. RECOMMENDATIONS: The patient may benefit from either use of auto CPAP or a repeat sleep study with ASV titration. She may need the ASV titration because of the severity of her complex sleep apnea. HOLLISD
== END | disposition home or self-care (01) ==
LOC: C.NEUR 20:00
PROVIDERS: ATTEND Physician Assistant Medical
DX: G47.30 Sleep apnea, unspecified (principal); E66.9 Obesity, unspecified

== ENCOUNTER → 2017-01-25 | Outpatient (CLI) | payer OTHER ==
[2017-01-25 18:10] LABS: THYROID STIMULATING HORMONE 0.789 uIu/ml (0.300-4.500)
[2017-01-26 09:22] LABS: ESTIMATED AVERAGE GLUCOSE 200 mg/dl; HA1C FLAG Normal (Normal)
== END | disposition home or self-care (01) ==
LOC: C.LAB1850 16:48
PROVIDERS: ATTEND Nurse Practitioner Adult Health
DX: A69.20 Lyme disease, unspecified (principal); E11.9 Type 2 diabetes mellitus without complications; E78.5 Hyperlipidemia, unspecified; E03.9 Hypothyroidism, unspecified

== ENCOUNTER → 2017-03-10 | Outpatient (CLI) | payer OTHER ==
[~2017-03-10] MED LIST changes: +CYCL5TAB PO; +DOXY-300 PO; +PSEU30TA64 PO; +VNTHFA/IN INH
[2017-03-15 14:20] LABS: ANA SCREEN TC 249X NEGATIVE (NEGATIVE); ANTI-SS-A <1.0 NEG AI (<1.0 NEG); ANTI-SS-B <1.0 NEG AI (<1.0 NEG); ANTICARDIOLIPID AB IGA <11 APL (< = 11); COMPLEMENT C4** TC 44982E 30 MG/DL (16-47); MICROSOMAL AB <1 IU/ML (<9)
== END | disposition home or self-care (01) ==
LOC: C.LAB1850 14:43
PROVIDERS: ATTEND Internal Medicine Infectious Disease
DX: M25.50 Pain in unspecified joint (principal)

== ENCOUNTER → 2017-03-25 | Outpatient (CLI) | payer OTHER ==
[~2017-03-25] MED LIST changes: -CYCL5TAB PO; -DOXY-300 PO; -PSEU30TA64 PO; -VNTHFA/IN INH
--- NOTE | 2017-03-26 07:44 | PAP/PSG TECHNICIAN REPORT ---
[facility] Potato Chip Fryer Polysomnogram Report Study name: None Report date: 03/26/2017 Study date: 03/25/2017 Referring Physician: Anderson Isaac M.D. Name: JUDY RICHARDSON Interpreting Physician: Anderson Isaac M.D. Date of : 1960 Potato Chip Fryer: Asmita Mckeon RPS. Sex: Female Age: 57 StudyType: PSG PAP Weight: 171 lbs Height: 57 years, Height 5' 3" Neck Circum: 15.5 inches BMI: 30.29 Medications: VINI, ATORVASTATIN 40 MG, CELEXA 40 MG, CYCLOBENZAPRINE 10 MG, FLONASE 50 MCG/ACT, IPRATROPIUM BORMIDE 0.06% NASAL SOLN, LAMOTRIGINE 25 MG, LANTUS SOLOSTAR 100 UNIT/ML, LEVOTHYROXINE 25 MCG, NOVOLOG FLEXPEN 100 UNIT/ML, NYSTATIN [id number] UNIT/GM, ONDANSETRON 4 MG, OXYCODONE-ACETAMINOPHEN, PROTONIX 40 MG, RIZATRIPTAN BENZOATE 10 MG, ROPINIROLE 2 MG, VIT D 62738 UNIT, ZOLPIDEM 10 MG Patient History 56 yr. old female here for an Auto SV titration study. Patient was titrated to a BIPAP pressure of 18/8 with a backup rate of 13, and was still having apneas. Parameters Monitored NPSG: E1-M2, E2-M1, Fp1-M2, Fp2-M1, F3-M2, F4-M2, F4-M1, C3-M2, C4-M2, C4-M1, O1-M2, O2-M2, O2-M1, T3-M2, T4-M1, P3-M2, P4-M1, CHIN1, CHIN2, HR, EKG, Legs, PFLOW, SNOR, FLOW, CFLOW, Tidal Volume, THOR, ABDO, SpO2, PLTH, CPRESS, ETCO2 Wave, ETCO2, pH Sleep Architecture Sleep Stages Time at Lights Off 10:24:54 PM STAGES Time (min.) TST (%) Time at Lights On 5:41:24 AM Wake 204.5 -- Total Recording Time (TRT) 436.50 min. N1 49.0 21 Total Sleep Period (TSP) 326.5 min. N2 90.0 39 Total Sleep Time (TST) 232.0min. N3 75.5 33 Awake Time 204.5 min. REM 17.5 8 Wake after Sleep Onset 95.0 min. Sleep Efficiency (SE) 53 % Sleep Onset Latency (KIKI) 109.5 min. Number of Stage 1 Shifts None Awakenings 44 Stage Changes 119 Number of REM periods 1 REM 17.5 8 REM Latency 284.5 min. NREM 214.5 92 Body Position Analysis Supine Right Left Side Prone Vertical Total Sleep Time (min.) 100.0 135.5 54.5 190.03 0.0 0.4 Total Sleep Time (%) 18% 58% 23% 82 0% N/A% Total Sleep Time REM (min.) 0.0 17.5 0.0 None 0.0 0.0 Total Sleep Time NREM (min.) 42.0 118.0 54.5 None 0.0 0.0 Intermittent Wake (min.) 58.0 110.8 35.3 None 0.0 0.4 Total Sleep Period (%) 29% None None None None None Arousals Myoclonus (PLM) * Events Count Index Events Count Index Spontaneous 16 4 Events Awake (PLMW) 125 36.7 Respiratory 0 0.5 Events Asleep w/ Arousal (PLMA) 4 1.0 PLM 4 1 Events Asleep w/o Arousal (PLMS) 33 8.5 Snoring 7 2 Total Asleep 37 9.6 Total 26 7 Total 162 22 Respiratory Analysis * CA OA MA CH H RERA Total Count 0 0 0 0 13 1 13 Index 0.0 0.0 0.0 0 3.4 0 3.6 Mean Duration 0.0 0.0 0.0 0.00 33.0 36.6 33.3 Longest Duration 0.0 0.0 0.0 0.00 0.0 36.6 48.6 Respiratory Event Summary Total Supine ~Supine Right Left Prone REM NREM Apneas Count 0 0 0 0 0 N/A 0 0 Index 0.0 0 0 0.0 0.0 N/A 0 0 Hypopneas (4% Desat) Count 13 13 0 0 0 N/A 0 13 Index 3.4 18.6 0 0.0 0.0 N/A 0.0 3.6 Apneas & All Hypopneas Count 13 13 0 0 0 N/A 0 13 Index 3.4 19 0 0 0 N/A 0.0 3.6 Respiratory Events (Despatch Clerk+All Hyp+RERA) Count 13 14 0 0 0 N/A 0 13 Index 3.6 20 0 0.0 0.0 N/A 0.0 3.9 Respiratory Related Arousal Count 0 14 0 0 0 N/A 0 2 Index 0.5 3 0 0 0 N/A 0 1 Snoring Analysis Supine Right Left Prone REM NREM Total Snore duration 1.3 min Snores count 41 3 0 N/A 0 44 44 Snore mean duration 1.8 Sec Snores index 59 1 0 N/A 0.0 12.3 11.4 TST with snoring (%) 0.6% Desaturation Event Summary: Minimum %SpO2 Event Count Mean/Min/Max Duration(sec.) Desaturation Index % Time In Bed > 90 36 32.5 / 6.3 / 59.8 5.0 99.3 86 - 90 0 N/A 0.0 0.6 81 - 85 0 N/A 0.0 0.1 76 - 80 0 N/A 0.0 0.0 71 - 75 0 N/A 0.0 0.0 66 - 70 0 N/A 0.0 0.0 61 - 65 0 N/A 0.0 0.0 56 - 60 0 N/A 0.0 0.0 51 - 55 0 N/A 0.0 0.0 < 50 0 N/A 0.0 0.0 Total REM NREM Awake <50% 0.0 min. 0.0 min. 0.0 min. 0.0 min. 51 - 60% 0.0 min. 0.0 min. 0.0 min. 0.0 min. 61 - 70% 0.0 min. 0.0 min. 0.0 min. 0.0 min. 71 - 80% 0.0 min. 0.0 min. 0.0 min. 0.0 min. 81 - 90% 2.8 min. 0.0 min. 0.9 min. 1.9 min. 91 - 100% 428.6 min. 17.5 min. 213.0 min. 198.1 min. Average 95 96 94 96 Minimum SpO2 83 94 84 83 Desaturation Event Index 4.9 0.0 5.6 5.0 # Desat. Events below 89% 1 N/A N/A 1 Time(%) with Saturation below 89% 0.2 0.0 0.0 0.2 Time(min.) with Saturation below 89% 1.0 0.0 0.1 0.9 Time (mins) REM (mins) NREM (mins) % of TST SpO2 Below 90% 6 N/A N6 0.2 SpO2 Below 88% 0 0 0 0 Heart Rate Analysis Min (bpm) Max (bpm) Average (bpm) Awake 40 127 88 NREM 65 96 77 REM 71 79 75 Overall 65 96 77 Supplemental O2 Values Minimum O2 level: None Value Start Time End Time Potato Chip Fryer Comments MS. Richardson slept in the right, left, and supine positions. No cardiac arrhythmia or PLMs noted. No bruxism noted. Auto SV was initiated at: Max Pressure:25.0 cm H2O Min EPAP:4.0 cm H2O Max EPAP:15.0 cm H2O Min PS:4.0 cm H2O Max PS:20.0 cm H2O Rate:Auto Comfort:BiFlex (2) No changes were made to the starting pressure. A F20 air touch full face mask was used during titration. MS. Richardson did not wake to use the restroom s during the night. MS. Richardson stated, It seems I was up and a lot . The final report will be interpreted and signed by a sleep physician. The completed physician report will then be placed in the patient medical record. Therapy Event: Therapy (cm H20) 1 Total Time at Pressure (min.) 436.5 TST at Pressure (min.) 232.0 # Periods 1 Sleep Onset (min.) 109.5 REM Onset (min.) 394.0 Sleep Efficiency % 53 Wakefulness (%) 46.8 Wakefulness (min.) 204.5 NREM 1 (%) 11.2 NREM 1 (min.) 49.0 NREM 2 (%) 20.6 NREM 2 (min.) 90.0 NREM 3 (%) 17.3 NREM 3 (min.) 75.5 REM (%) 4.0 REM (min.) 17.5 # Arousals 26 Arousal Index 6.7 # Snore 44 Snore Index 11.4 AHI 3.4 AHI Supine 18.6 AHI Non-Supine 0.0 NREM AHI 3.6 REM AHI 0.0 RDI 3.6 # Obstructive 0 # Central Ap 0 # Mixed 0 # Hypopneas 13 RERAS 1 Total Respiratory Events 14 Time Below SpO2 89.00% (min.) 0.1 Mean NREM SpO2 (%) 94 Mean REM SpO2 (%) 96 Mean Sleep SpO2 (%) 94 Min NREM SpO2 (%) 84 Min REM SpO2 (%) 94 Position Supine (min.) 42.0 Position Non-supine (min.) 190.0 LM Index Sleep 9.6 LM Index NREM 10.1 LM Index REM 3.4 Mean Heart Rate (bpm) 77 Min Heart Rate (bpm) 65
--- NOTE | 2017-03-26 15:55 | POLYSOMNOGRAPH REPORT ---
CLINICAL DATA: A 57-year-old female with severe complex sleep apnea referred for an ASV titration. The patient has been tried on BIPAP with a backup rate and still has residual apneic episodes. Her BMI is 30.3. Her primary care physician is Dr. Og. SLEEP ARCHITECTURE: Total sleep period was 326.5 minutes. Total sleep time was 232 minutes divided between 214.5 minutes of non-REM sleep and 17.5 minutes of REM sleep. Sleep onset latency was markedly delayed at 109.5 minutes. REM latency was delayed at 284.5 minutes. Sleep efficiency was reduced to 53%. Wake after sleep onset was 95 minutes. Sleep consisted of stage N1 21%, stage N2 39%, stage N3 32%, and REM 8%. AROUSAL DATA: Twenty-six arousals were recorded for an index of 7 per hour. PLM DATA: Thirty-seven limb movements during sleep were noted for an index of 9.6 per hour with arousal index of 1 per hour. RESPIRATORY DATA: The AHI was 3.4. There were 13 hypopneic episodes, the mean duration of 33 seconds. OXIMETRY DATA: Transient hypoxemia was seen. The oxygen sean was 84%. Mean saturation was 95%. Time below 88% was 1 minute. EKG: Heart rates ranged from 65-96 beats per minute. No arrhythmias were noted. MOISTURE TESTER'S COMMENTS AND TREATMENT SUMMARY: The patient slept in the right, left, and supine positions. She used F20 AirTouch full facemask. She was placed on ASV, minimum EPAP 4 cm of water pressure, maximum EPAP 15 cm of water pressure, minimum pressure support 4 cm of water pressure, maximum pressure support 20 cm of water pressure. Maximum pressure 25 cm of water pressure, rate auto comfort level Bi-Flex 2. On that pressure setting, the patient slept for 232 minutes with an AHI of 3.4. IMPRESSION: Complex sleep apnea corrected with ASV at the above noted settings. The patient did well with treatment. RECOMMENDATIONS: The patient should be started on ASV and seen back in followup within 90 days to document efficacy and compliance. [facility]
== END | disposition home or self-care (01) ==
LOC: C.NEUR 20:00
PROVIDERS: ATTEND Physician Assistant Medical
DX: G47.30 Sleep apnea, unspecified (principal)

== ENCOUNTER → 2017-04-28 | Outpatient (CLI) | payer OTHER ==
[2017-04-29 07:10] LABS: HEMOGLOBIN A1C 9.7 % (4.5-5.6)
== END | disposition home or self-care (01) ==
LOC: C.LAB1850 15:57
PROVIDERS: ATTEND Nurse Practitioner Adult Health
DX: E55.9 Vitamin D deficiency, unspecified (principal); E78.5 Hyperlipidemia, unspecified; E03.9 Hypothyroidism, unspecified

== ENCOUNTER 2017-07-31 16:46 | Emergency (ER) | payer OTHER ==
[~2017-07-31] VITALS: Ht 157.5 cm; Wt 70.1 kg
[2017-07-31 16:53] VITALS: Ht 157.5 cm; Wt 70.1 kg
[2017-07-31] MEDS ORDERED: ACETAMINOPHEN 500 MG TAB PO STA (17:09)
[2017-07-31] MEDS ORDERED: SODIUM CHLORIDE 0.9% 1000ML 2,000 ML IV STA (17:09)
[2017-07-31 17:44] LABS: BASO % 0.2 %; BASO ABS # 0.02 K/uL (0-0.2); EOS % 0.7 %; EOS ABS # 0.06 K/uL (0-0.5); HEMATOCRIT 38.7 % (37-47); HEMOGLOBIN 13.4 g/dL (12.0-16.0); IG# 0.03 K/uL (0.00-0.02); LYMPH % 16.5 %; LYMPH ABS # 1.35 K/uL (1.2-3.4); MEAN CELL VOLUME 90.4 fL (80-100); MEAN CORPUSCULAR HEMOGLOBIN 31.3 pg (25-34); MEAN CORPUSCULAR HGB CONC 34.6 g/dl (32-36); MEAN PLATELET VOLUME 9.3 fL (7.4-10.4); MONO % 7.3 %; NEUT % 74.9 %; NEUT ABS # 6.12 K/uL (1.4-6.5); PLATELET COUNT 309 K/uL (130-400); RED CELL DISTRIBUTION WIDTH CV 12.9 % (11.5-14.5); RED CELL DISTRIBUTION WIDTH SD 42.5 fL (36.4-46.3); WHITE BLOOD COUNT 8.18 K/uL (4.8-10.8)
[2017-07-31] MEDS ORDERED: VNTHFA/IN INH (17:44)
[2017-07-31] MEDS ORDERED: CYCL5TAB PO (17:44)
[2017-07-31] MEDS ORDERED: PSEU30TA64 PO (17:44)
[2017-07-31] MEDS ORDERED: DOXY-300 PO (17:44)
[2017-07-31 17:57] LABS: ALBUMIN 4.1 gm/dl (3.4-5.0); ALKALINE PHOSPHATASE 105 U/L (45-117); ALT/SGPT 42 U/L (12-78); AST/SGOT 29 U/L (15-37); BLOOD UREA NITROGEN 9 mg/dl (7-18); CALCIUM 8.7 mg/dl (8.5-10.1); CARBON DIOXIDE 22 mmol/L (21-32); CREATININE 1.15 mg/dl (0.60-1.20); GLUCOSE 328 mg/dl (70-99); LIPASE 116 U/L (73-393); POTASSIUM 4.4 mmol/L (3.5-5.1); SODIUM 132 mmol/L (136-145); TOTAL PROTEIN 7.9 gm/dl (6.4-8.2)
--- NOTE | 2017-07-31 18:00 | DIAGNOSTIC IMAGING REPORT ---
CHEST ONE VIEW PORTABLE CLINICAL HISTORY: Cough and fever. COMPARISON STUDY: Chest radiograph May 18, 2014. FINDINGS: Incidental note is made of moderate dextroscoliosis of the thoracic spine. Lungs are clear. Lung volumes are normal. There is no pneumothorax or pleural effusion. Pulmonary vascularity is normal. Cardiac size is normal. Appearance of the chest is unchanged. IMPRESSION: No acute cardiopulmonary findings. Electronically signed by: Rick Mcmahon M.D. 07/31/2017 5:59 PM Dictated Date/Time: 07/31/2017 5:58 PM
[2017-07-31] MEDS ORDERED: NovoLIN-R INSULIN PER UNIT CHARGE IV STA (18:15)
[2017-07-31 18:17] LABS: INFLUENZA B ANTIGEN Neg for Influ B (NEG)
[2017-07-31 18:22] VITALS: TEMP 37.2
[2017-07-31 19:04] VITALS: BP 113/67; PULSE 100; O2SAT 96
--- NOTE | 2017-07-31 23:43 | EMERGENCY ROOM VISIT NOTE ---
History Report prepared by [employer]: Emiliana Torrez Under the Supervision of: Dr. Kris Hendricks D.O. First contact with patient: 16:56 Chief Complaint: FEVER Stated Complaint: COLD /FLU History of Present Illness The patient is a 57 year old female who presents to the Emergency Room with complaints of persistent flu-like symptoms for the past 4 days. She states about 5 nights ago, she had diarrhea, nausea and vomiting, then woke up several hours later feeling very chilled. She has since developed a productive cough, sore throat, headache, shortness of breath, "chest tightness" and low grade fevers. She saw her PCP yesterday and got a chest X-ray and Doxycycline prescription. Chest tightness has been present for the past 24 hours. She does note that it is most prominent with coughing. The patient is diabetic and states her most recent BSG was 270 this morning. Pt denies change in vision, pain with urination, and melena. Source of History: patient Onset: 4 days GENERAL PRACTICE Position: other (global) Timing: other (persistent) Associated Symptoms: + fevers, + chills, + headache, + sorethroat, + cough, + chest pain, + SOB, + nausea, + vomiting, + diarrhea, No melena, No urinary symptoms Review of Systems See HPI for pertinent positives & negatives. A total of 10 systems reviewed and were otherwise negative. Past Medical & Surgical Medical Problems: (1) Breast hypertrophy (2) Diabetes (3) Fibromyalgia (4) Lyme disease Family History FH: diabetes mellitus Social History Smoking Status: Never Smoker Alcohol Use: none Drug Use: none Marital Status: single Housing Status: lives with family Occupation Status: disabled Current/Historical Medications Scheduled Amphetamine-Dextroamphetamine 20MG (Adderall 20MG), 20 MG PO BID Atorvastatin (Lipitor), 40 MG PO HS Citalopram (Citalopram Hydrobromide), 1 TAB PO HS Doxycycline (Monohydrate) (Doxycycline), 100 MG PO BID Ergocalciferol (Vitamin D 89972 Unit), 50,000 UNIT PO WK Ferrous Sulfate (Kp Ferrous Sulfate), 1 TAB PO 3XWK Fluticasone Propionate (Nasal) (Flonase Allergy Relief), 2 SPRAYS NA QAM Insulin Aspart (Novolog), 1 DOSE SC UD Insulin Glargine (Lantus Solostar), 61 SC DAILY Levothyroxine Sodium (Levothyroxine Sodium), 25 MCG PO QAM Nystatin (Nystatin Cream), Unknown Dose EXT WK Pseudoephedrine Hcl (Sudafed), 30 MG PO PRN UD Scheduled PRN Albuterol Hfa (Ventolin Hfa), 2 PUFFS INH Q6H PRN for SOB/Wheezing Cetirizine (Zyrtec), 10 MG PO HS PRN for Seasonal Allergies Cyclobenzaprine Hcl (Flexeril), 5 MG PO TID PRN for Muscle Spasms Ipratropium [place] (Nasal) (Ipratropium [place]), 0.66 SPRAY RHEA WK PRN for SEASONAL ALLERGIES Ondansetron Hcl (Zofran), Unknown Dose PO DAILY PRN for Nausea Oxycodone/Acetaminophen 5MG/325MG (Percocet 5MG/325MG), 1 TABLET PO UD PRN for Pain Pantoprazole (Protonix), 40 MG PO DAILY PRN for Nausea Rizatriptan Benzoate (Maxalt), 10 MG PO QAM PRN for Migraine Allergies Coded Allergies: Pregabalin (Verified Allergy, Mild, LEG SWELLING, 12/03/16) CI Pigment Blue 63 (Verified Allergy, Unknown, LEG SWELLING, 12/03/16) Duloxetine (Verified Allergy, Unknown, LEG SWELLING, 12/03/16) Gabapentin (Verified Allergy, Unknown, HANDS AND JOINT SWELLING, 12/03/16) Procaine (Verified Adverse Reaction, Unknown, 'low grade fever', 12/03/16) Physical Exam Vital Signs Date Time Temp Pulse Resp B/P (MAP) Pulse Ox O2 Delivery O2 Flow Rate FiO2 07/31/17 19:04 100 18 113/67 96 Room Air 07/31/17 18:22 37.2 108 18 131/65 97 Room Air 07/31/17 16:53 39.3 122 18 130/67 95 Room Air Physical Exam GENERAL: Sitting up in bed, alert, with dry non-productive cough, well nourished , no distress, non-toxic EYE EXAM: normal conjunctiva. OROPHARYNX: no exudate, no erythema, lips, buccal mucosa, and tongue normal and mucous membranes are moist EARS: TM's are clear bilaterally NECK: supple, no nuchal rigidity, no adenopathy, non-tender LUNGS: Clear to auscultation. Normal chest wall mechanics HEART: Tachycardic heart rate, regular rhythm, no murmurs, S1 normal and S2 normal CHEST: Reproducible anterior chest wall pain, same as stated complaint ABDOMEN: abdomen soft, non-tender, normo-active bowel sounds, no masses, no rebound or guarding. BACK: Back is symmetrical on inspection and there is no deformity, no midline tenderness, no CVA tenderness. SKIN: no rashes and no bruising UPPER EXTREMITIES: upper extremities are grossly normal. LOWER EXTREMITIES: No pitting edema. NEURO EXAM: Normal sensorium, cranial nerves II-XII grossly intact, normal speech, no gross weakness of arms, no gross weakness of legs. Gross sensation intact. Medical Decision & Procedures ER Provider Diagnostic Interpretation: Radiology results as stated below per my review and the radiologist's interpretation: CHEST ONE VIEW PORTABLE CLINICAL HISTORY: Cough and fever. COMPARISON STUDY: Chest radiograph May 18, 2014. FINDINGS: Incidental note is made of moderate dextroscoliosis of the thoracic spine. Lungs are clear. Lung volumes are normal. There is no pneumothorax or pleural effusion. Pulmonary vascularity is normal. Cardiac size is normal. Appearance of the chest is unchanged. IMPRESSION: No acute cardiopulmonary findings. Electronically signed by: Rick Mcmahon M.D. 07/31/2017 5:59 PM Laboratory Results 07/31/17 17:20 Red Blood Count 4.28, Mean Corpuscular Volume 90.4, Mean Corpuscular Hemoglobin 31.3, Mean Corpuscular Hemoglobin Concent 34.6, Mean Platelet Volume 9.3, Neutrophils (%) (Auto) 74.9, Lymphocytes (%) (Auto) 16.5, Monocytes (%) (Auto) 7.3, Eosinophils (%) (Auto) 0.7, Basophils (%) (Auto) 0.2, Neutrophils # (Auto) 6.12, Lymphocytes # (Auto) 1.35, Monocytes # (Auto) 0.60, Eosinophils # (Auto) 0.06, Basophils # (Auto) 0.02 07/31/17 17:20 Test 07/31/17 17:20 07/31/17 18:30 07/31/17 19:02 White Blood Count 8.18 K/uL (4.8-10.8) Red Blood Count 4.28 M/uL (4.2-5.4) Hemoglobin 13.4 g/dL (12.0-16.0) Hematocrit 38.7 % (37-47) Mean Corpuscular Volume 90.4 fL (80-100) Mean Corpuscular Hemoglobin 31.3 pg (25-34) Mean Corpuscular Hemoglobin Concent 34.6 g/dl (32-36) Platelet Count 309 K/uL (130-400) Mean Platelet Volume 9.3 fL (7.4-10.4) Neutrophils (%) (Auto) 74.9 % Lymphocytes (%) (Auto) 16.5 % Monocytes (%) (Auto) 7.3 % Eosinophils (%) (Auto) 0.7 % Basophils (%) (Auto) 0.2 % Neutrophils # (Auto) 6.12 K/uL (1.4-6.5) Lymphocytes # (Auto) 1.35 K/uL (1.2-3.4) Monocytes # (Auto) 0.60 K/uL (0.11-0.59) Eosinophils # (Auto) 0.06 K/uL (0-0.5) Basophils # (Auto) 0.02 K/uL (0-0.2) RDW Standard Deviation 42.5 fL (36.4-46.3) RDW Coefficient of Variation 12.9 % (11.5-14.5) Immature Granulocyte % (Auto) 0.4 % Immature Granulocyte # (Auto) 0.03 K/uL (0.00-0.02) Anion Gap 8.0 mmol/L (3-11) Est Creatinine Clear Calc Drug Dose 48.3 ml/min Estimated GFR () 60.3 Estimated GFR (Non- 52.0 BUN/Creatinine Ratio 7.8 (10-20) Calcium Level 8.7 mg/dl (8.5-10.1) Total Bilirubin 0.6 mg/dl (0.2-1) Direct Bilirubin 0.2 mg/dl (0-0.2) Aspartate Amino Transf (AST/SGOT) 29 U/L (15-37) Alanine Aminotransferase (ALT/SGPT) 42 U/L (12-78) Alkaline Phosphatase 105 U/L (45-117) Troponin I < 0.015 ng/ml (0-0.045) Total Protein 7.9 gm/dl (6.4-8.2) Albumin 4.1 gm/dl (3.4-5.0) Lipase 116 U/L (73-393) Beta-Hydroxybutyric Acid 0.88 mg/dL (0.2-2.81) Influenza Type A Antigen Neg for Influ A (NEG) Influenza Type B Antigen Neg for Influ B (NEG) Urine Color YELLOW Urine Appearance CLEAR (CLEAR) Urine pH 5.0 (4.5-7.5) Urine Specific [place] 1.026 (1.000-1.030) Urine Protein NEG (NEG) Urine Glucose (UA) 3+ (NEG) Urine Ketones NEG (NEG) Urine Occult Blood NEG (NEG) Urine Nitrite NEG (NEG) Urine Bilirubin NEG (NEG) Urine Urobilinogen NEG (NEG) Urine Leukocyte Esterase NEG (NEG) Urine WBC (Auto) 1-5 /hpf (0-5) Urine RBC (Auto) 0-4 /hpf (0-4) Urine Hyaline Casts (Auto) 1-5 /lpf (0-5) Urine Epithelial Cells (Auto) >30 /lpf (0-5) Urine Bacteria (Auto) NEG (NEG) Bedside Glucose 186 mg/dl (70-90) Laboratory results per my review. Medications Administered Medications (Trade) Dose Ordered Sig/Jacy Route Start Time Stop Time Status Last Admin Dose Admin Sodium Chloride 2,000 ml @ 999 mls/hr Q2H1M STAT IV 07/31/17 17:09 07/31/17 19:09 DC 07/31/17 17:33 999 MLS/HR Acetaminophen (Tylenol Tab) 1,000 mg NOW STAT PO 07/31/17 17:09 07/31/17 17:11 DC 07/31/17 17:33 1,000 MG Insulin Human Regular (novoLIN-R U-100 PER UNIT) 4 units NOW STAT IV 07/31/17 18:15 07/31/17 18:19 DC 07/31/17 18:19 4 UNITS ECG Per My Interpretation Indication: chest pain Rate (beats per minute): 115 Rhythm: sinus tachycardia Findings: no ectopy, other (normal axis) ED Course ED COURSE: Vital signs were reviewed and showed the patient is febrile and tachycardic The patients medical record was reviewed The above diagnostic studies were performed and reviewed. ED treatments and interventions as stated above. 1700: The patient was evaluated in room C11A. A complete history and physical examination was performed. 1709: Acetaminophen 1000 mg PO, NSS 2000 ml @ 999 mls/hr IV. 1814: Novolin-R 4 units IV. 1929: Upon reevaluation, the patient is resting comfortably and feeling better. I discussed my findings with the patient and she understands and agrees with the treatment plan. Based on the patients age, coexisting illnesses, exam and lab findings the decision to treat as an outpatient was made. The patient remained stable while under my care. The patient appeared well at the time of discharge. Medical Decision Differential diagnosis includes etiologies such as sepsis, UTI, pneumonia, metabolic, electrolyte abnormalities, cardiac sources, intracerebral event, toxicologic, neurologic, as well as others were entertained. Patient is a 57-year-old female who presents to ER for cough, runny nose and a sore throat which is been present for the past several days. She notes her granddaughter has the exact same symptoms. They both presented to the ER at the same time. Granddaughter tested positive for RSV. Patient was febrile and tachycardic. CBC along with BMP, LFTs, bilirubin and lipase was obtained and showed hyperglycemia with a BSG of 328. Troponin was negative. Beta hydroxybutyric acid was negative. Patient was given 2 L normal saline and IV insulin along with Tylenol. Heart rate trend down to 100. UA was negative. Chest x-ray unremarkable. EKG unremarkable per influenza negative. Patient is otherwise well-appearing. I do favor that this is all consistent with a viral URI as I tested her granddaughter who came back positive for RSV. I did encourage her to continue her doxycycline. Chest pain is reproducible. Discussed with Pt concerning signs and symptoms to watch out for. Pt was instructed to follow up with their PCP and discussed with the patient their option to return to the ED at anytime for persistent or worsening symptoms. The appropriate anticipatory guidance and out-patient management, including indications for return to the emergency department, were explained at length to the patient and understood. Medication Reconcilliation Current Medication List: was personally reviewed by me Blood Pressure Screening Patient's blood pressure: Normal blood pressure Blood pressure disposition: Did not require urgent referral Impression Primary Impression: Viral URI Additional Impression: RSV bronchitis Scribe Attestation The scribe's documentation has been prepared under my direction and personally reviewed by me in its entirety. I confirm that the note above accurately reflects all work, treatment, procedures, and medical decision making performed by me. Departure Information Dispostion Home / Self-Care Referrals Pastor Castellano M.D. (PCP) Patient Instructions ED URI Viral, My [facility] Additional Instructions Please follow up with your primary care doctor with in the next 24 hours. Any worsening of your symptoms, please return to the ED immediately. This includes any fevers greater than 100.4, worsening pain, chest pain, shortness breath, persistent nausea, vomiting, unable to eat or drink, or any other concerning signs or symptoms from your standpoint. Please take Tylenol or Motrin as needed for fevers. You can continue your antibiotics as previously prescribed. Please try to remain as hydrated as possible. Please keep a close eye on your blood sugars. Problem Qualifiers
== END 2017-07-31 19:30 | disposition home or self-care (01) ==
LOC: C.EDB 16:47 → C.EDC 19:30
DX: J06.9 Acute upper respiratory infection, unspecified (principal); B97.4 Respiratory syncytial virus as the cause of diseases classified elsewhere; E11.9 Type 2 diabetes mellitus without complications; M79.7 Fibromyalgia; Z79.4 Long term (current) use of insulin; Z88.8 Allergy status to other drugs, medicaments and biological substances

== ENCOUNTER 2023-10-26 05:25 | Observation (INO) ==
--- NOTE | 2023-09-16 11:19 | PAT Medication Instructions ---
Medication Instructions Date of Service September 16, 2023 Home Medications Medication Instructions Recorded blood-glucose meter (OneTouch #1 ea 02/27/21 Verio Flex Meter) blood sugar diagnostic (OneTouch #400 ea 01/19/23 Verio test strips) BD Lizbeth 2nd Gen Pen Needle 32 #400 ea 01/25/23 gauge x 5/32" (pen needle, diabetic) citalopram 20 mg tablet 20 mg PO QAM oxycodone-acetaminophen 5 mg-325 mg tablet 1 tab PO Q4H PRN nystatin 100,000 unit/gram topical powder 1 appln topical TID PRN cyclobenzaprine 5 mg tablet 5 - 10 mg PO UD PRN dextroamphetamine-amphetamine 20 mg tablet 20 mg PO BID pantoprazole 40 mg tablet,delayed release 40 mg PO QAM fluticasone propionate 50 mcg/actuation nasal spray,suspension 1 spray intranasal DAILY PRN insulin glargine 100 unit/mL (3 mL) subcutaneous pen (Lantus Solostar U-100 Insulin) 90 unit subcut DAILY empagliflozin 25 mg tablet (Jardiance) 25 mg PO QAM ergocalciferol (vitamin D2) 1,250 mcg (50,000 unit) capsule 1,250 mcg PO UD ezetimibe 10 mg tablet (Zetia) 10 mg PO QAM insulin aspart U-100 100 unit/mL (3 mL) subcutaneous pen 40 unit subcut UD levothyroxine 50 mcg tablet 50 mcg PO QAM lisinopril 10 mg tablet 10 mg PO QAM rosuvastatin 40 mg tablet 40 mg PO QAM STOP 3 days before surgery empagliflozin 25 mg tablet (Jardiance) 25 mg PO QAM will be discussed at PAT visit once timing of usual dose is determined insulin glargine 100 unit/mL (3 mL) subcutaneous pen (Lantus Solostar U-100 Insulin) 90 unit subcut DAILY Continue as directed cyclobenzaprine 5 mg tablet 5 - 10 mg PO UD PRN(if needed) fluticasone propionate 50 mcg/actuation nasal spray,suspension 1 spray intranasal DAILY PRN(if needed) STOP taking 24 hours before surgery nystatin 100,000 unit/gram topical powder 1 appln topical TID PRN DO NOT take the morning of surgery dextroamphetamine-amphetamine 20 mg tablet 20 mg PO BID ergocalciferol (vitamin D2) 1,250 mcg (50,000 unit) capsule 1,250 mcg PO UD insulin aspart U-100 100 unit/mL (3 mL) subcutaneous pen 40 unit subcut UD lisinopril 10 mg tablet 10 mg PO QAM Take morning of surgery With a small sip of water, OTHERWISE NOTHING TO EAT OR DRINK AFTER MIDNIGHT: citalopram 20 mg tablet 20 mg PO QAM oxycodone-acetaminophen 5 mg-325 mg tablet 1 tab PO Q4H PRN(if needed) pantoprazole 40 mg tablet,delayed release 40 mg PO QAM ezetimibe 10 mg tablet (Zetia) 10 mg PO QAM levothyroxine 50 mcg tablet 50 mcg PO QAM rosuvastatin 40 mg tablet 40 mg PO QAM Take evening before surgery oxycodone-acetaminophen 5 mg-325 mg tablet 1 tab PO Q4H PRN(if needed) dextroamphetamine-amphetamine 20 mg tablet 20 mg PO BID Other Notes If you have any questions please call us at [phone] or [phone] or [phone] or [phone]
--- NOTE | 2023-09-28 11:14 | Anesthesiology Consultation ---
Date of Service September 28, 2023 Assessment & Plan (1) Encounter for pre-operative examination: - patient originally confirmed listed procaine allergy on chart "low grade fever in childhood." When I called her in follow-up after anesthesiologist advised consideration for allergy testing in the future, she advised that she was mistake and it was a novocaine reaction of low grade fever in childhood. She states that she has had novocaine since then many times without any reaction. Dr. Harris advised nothing further is needed. - Outpatient joint assessment: Patient is currently scheduled for inpatient pathway. Chart Review Chart Review: Acceptable Risk for Surgery and Patient seen in Pre Admission Testing Teaching & Discussion Pre-Anesthesia Teaching/Discussion Notes: Instructed NPO after midnight before surgery, except medications with 15 cc of water. Medication instructions provided according to the PAT guidelines. History Surgery Operation Date: 10/26/23 07:00 Proposed Procedures p Right Total Knee Arthroplasty - Ac Medina MD Height/Weight Height: 5 ft 2 in Weight: 86.3 kg Allergies Allergy/AdvReac Type Severity Reaction Status Date / Time pregabalin Allergy Mild Leg Verified 09/21/23 10:00 swelling blue dye Allergy Unknown Leg Verified 09/21/23 10:00 swelling duloxetine Allergy Unknown Leg Verified 09/21/23 10:00 swelling gabapentin Allergy Unknown Hands/joint Verified 09/21/23 10:00 swelling meloxicam Allergy Verified 09/15/23 13:41 novocaine AdvReac see Uncoded 09/30/23 09:35 notation Medications Home Medications Medication Instructions Recorded Confirmed Last Taken citalopram 20 mg tablet 20 mg PO QAM 04/23/19 09/15/23 Unknown oxycodone-acetaminophen 5 mg-325 1 tab PO Q4H PRN pain 04/23/19 09/15/23 Unknown mg tablet nystatin 100,000 unit/gram topical 1 appln topical TID PRN rash under 08/29/19 09/15/23 Unknown powder breasts #1 g cyclobenzaprine 5 mg tablet 5 - 10 mg PO UD PRN muscle spasms 07/30/20 09/15/23 Unknown dextroamphetamine-amphetamine 20 20 mg PO BID 07/30/20 09/15/23 Unknown mg tablet blood-glucose meter (OneTouch #1 ea 02/27/21 08/31/23 Unknown Verio Flex Meter) fexofenadine 180 mg tablet 180 mg PO DAILY PRN Allergy 05/13/21 09/15/23 Unknown (Josefina Allergy) Symptoms lancets 33 gauge (OneTouch Delica #100 ea 05/13/21 08/31/23 Unknown Lancets) blood glucose control, high #1 ea 01/26/22 08/31/23 Unknown (OneTouch Verio High Control solution) pantoprazole 40 mg tablet,delayed 40 mg PO QAM 04/13/22 09/15/23 Unknown release blood sugar diagnostic (OneTouch #400 ea 01/19/23 08/31/23 Unknown Verio test strips) BD Lizbeth 2nd Gen Pen Needle 32 #400 ea 01/25/23 08/31/23 Unknown gauge x 5/32" (pen needle, diabetic) fluticasone propionate 50 1 spray intranasal DAILY PRN 06/01/23 09/15/23 Unknown mcg/actuation nasal Congestion spray,suspension insulin glargine 100 unit/mL (3 90 unit subcut DAILY 08/31/23 09/15/23 Unknown mL) subcutaneous pen (Lantus Solostar U-100 Insulin) ergocalciferol (vitamin D2) 1,250 1,250 mcg PO UD 09/15/23 09/15/23 Unknown mcg (50,000 unit) capsule ezetimibe 10 mg tablet (Zetia) 10 mg PO QAM 09/15/23 09/15/23 Unknown insulin aspart U-100 100 unit/mL 40 unit subcut UD 09/15/23 09/15/23 Unknown (3 mL) subcutaneous pen levothyroxine 50 mcg tablet 50 mcg PO QAM 09/15/23 09/15/23 Unknown lisinopril 10 mg tablet 10 mg PO QAM 09/15/23 09/15/23 Unknown rosuvastatin 40 mg tablet 40 mg PO QAM 09/15/23 09/15/23 Unknown empagliflozin 25 mg tablet 25 mg PO QAM #90 tabs 09/27/23 Unknown (Jardiance) Past Medical History Medical History (Updated 09/28/23 @ 11:26 by Carolina Will PA-C) Attention deficit on Adderall Chronic migraine Chronic rhinitis Complex sleep apnea syndrome CPAP "only wears about half of the night" Depression Dyslipidemia Fibromyalgia Gastroparesis GERD (gastroesophageal reflux disease) controlled, stable per pt Hx of gastric ulcer (~1990) Hypertension controlled, stable per pt Hypothyroidism Lyme disease Residual arthritis, short term memory loss, migraines Obesity Type 2 diabetes mellitus, with long-term current use of insulin IDDM Patient denies h/o stroke, seizures, heart attack, heart failure, blood clots/DVTs or blood transfusions. Exercise / Class Metabolic Activity II 4-5 Yardwork/Stairs/Walk up hill (denies chest discomfort or shortness of breath with one flight of stairs) Past Family History Family History Mother Diabetes Father Diabetes Dyslipidemia Hypertension Heart failure Past Surgical History Surgical History History of anesthesia reaction Awareness with remote procedure "years ago" History of bilateral tubal ligation History of esophagogastroduodenoscopy (EGD) Hx of appendectomy Hx of breast reduction, elective Hx of colonoscopy Past Anesthesia History No Hx of Anesthesia Complications and No Family Hx of Anesthesia Complications History of PONV No Hx of PONV and Hx of Motion Sickness Social History Smoking Status: Current some day smoker (-advised) Do You Dip or Chew Tobacco: No Smoking End Date: none for 15 years Hx Alcohol Use: Yes Alcohol type: wine alcohol intake frequency: holidays/special occasions only Hx Substance Use: Yes (medical card) substance use type: marijuana Last Used Substance Other:: occasional use, most recent 09/12/23-advised Review of Systems Patient denies chest pain, shortness of breath, dyspnea on exertion, fever, chills, cough, wheezing, or palpitations. Physical Exam Vital Signs Vitals BP 120/76 P 107 (patient reports chronic tachycardia) TEMP 99.4 SP02 96% on RA RESP 17 Physical Patient resting comfortably in chair in no acute distress, alert and oriented, responding appropriately throughout visit Full cervical extension range of motion without pain TMD < 3 finger breadths Mallampati Score 3 Dentition: intact, denies chipped or loose teeth, caps/crowns, implants or bridges Lungs: normal respiratory effort. Good air movement, clear throughout to auscul tation, no adventitious breath sounds Cardiac: regular rate and rhythm, no murmurs noted Carotid arteries: negative bruit bilat Lab Results Anesthesia Preop Results Results Anesthesia Widget: WBC 10.21 K/ul (4.8-10.8) 09/28/23 Hgb 13.2 g/dl (12.0-16.0) 09/28/23 Hct 40.5 % (37.0-47.0) 09/28/23 Plt 365 K/uL (130-400) 09/28/23 Na 137 mmol/L (136-145) 09/28/23 K 4.5 mmol/L (3.5-5.1) 09/28/23 Cl 106 mmol/L (98-107) 09/28/23 CO2 22 mmol/L (21-32) 09/28/23 BUN 30 mg/dl (6-23) H 09/28/23 Creat 1.22 mg/dl (0.6-1.2) H 09/28/23 Glucose Level 210 mg/dl (70-99(Fasting)) H 09/28/23 PT 9.8 Seconds (9.0-12.0) 09/28/23 PTT 27 Seconds (21-31) 09/28/23 INR 0.9 (0.9-1.1) 09/28/23 HA1c 7.5 % (4.5-5.6) H 08/27/23 Blood Type O Negative 09/28/23 Antibody Screen NEGATIVE 09/28/23 Testing Electrocardiogram Date: 09/28/23 Sinus tachycardia, rate 105 bpm Chest X-Ray Date: 09/28/23 No acute processes of the chest. Hiatal hernia.
[~2023-10-26 05:25] MED LIST changes: +ALLERGY Noted to ORDERED Medication SCH; -AMPH20TA2 PO; -ATOR-24 PO; -CETI10TA84 PO; -CLX40 PO; -CYCL10TA6 PO; -ERGO500037 PO; -FERR1TAB13 PO; -FLUT0.15; -INSDGIPEN SC; -IPRA0.06 NAE; -LEVO25TA5 PO; -NVLG SC; -NYSCR30 EXT; -ONDA4TAB46 PO; -OXYC-57 PO; -PANT40TA PO; -PSEU30TA20 PO; -RIZA10TA18 PO; -RQP/2 PO; -ZOLP10TA PO
--- OUTSIDE RECORDS SUMMARY | 2023-10-26 05:49 | External Medical Summary | Summary of Care ---
Author Name Unknown Organization [facility] Address [address] [facility] [place] [address] Phone [phone] Care Team Providers Care Cigar Packer And Picker Name Role Phone Pastor Castellano MD Primary Care Provider +1- [phone] Reason for Visit * Reason Onset Date Comments Advice 09/30/2023 advice Encounter Details Date Type Department Care Team (Late st Contact Info) Description 09/30/2023 Telephone [facility] [address] [place] [address] Pastor Castellano MD [address] [place] [address] Advice (advice) Allergies Active Allergy Reactions Criticality Noted Date Comments Duloxetine Hcl Edema Other 03/12/2017 Gabapentin Edema Other 03/12/2017 Lidocaine Fever High 03/12/2017 Pregabalin Edema Other 03/12/2017 Meloxicam Edema Other 01/12/2018 Procaine Fever 07/30/2017 documented as of this encounter (statuses as of 10/22/2023) Medications Medication Sig Dispensed Refills Start Date End Date Status NOVOLOG FLEXPEN 100 UNIT/ML SUBQ SOLN per sliding scale Active Vitamin D, Ergocalciferol, 79810 units Capsule Take 1 Capsule by mouth once a week. 12/13/2017 Active Azelastine HCl 0.1 % nasal spray Administer 2 Sprays into nostril 2 times a day. 30 mL 12 12/13/2017 Active BD PEN NEEDLE AVELINO U/F 32G X 4 MM Inject 1 Each as directed in the morning and 1 Each at noon and 1 Each in the evening and 1 Each before bedtime. 06/09/2018 Active Blood Glucose Calibration (ONETOUCH VERIO) SOLN 09/14/2018 Active ONETOUCH VERIO STRP 09/30/2018 Activ e Lidocaine 5 % CREA Apply to affected area three times per day as needed 1 Tube 1 05/26/2019 Active Fexofenadine HCl 180 MG Oral Tablet (VINI)Indications :Allergic rhinitis, unspecified seasonality, unspecified trigger Take 1 Tab by mouth daily as needed for Allergies. 30 Tab 11 01/05/2020 Active Lantus SoloStar 100 UNIT/ML Subcutaneous Solution Pen-injector 80 units at bed time 04/29/2020 Active BiPAP every night at bedtime . Active Nystatin 028918 UNIT/GM External Powder (Nystop)Indications: Yeast dermatitis Apply to affected areas up to twice per day as needed. 30 g 3 05/28/2021 Active Multivitamin Adults 50+ Oral TabletIndications:in am Take by mouth . Active Rosuvastatin Calcium 40 MG Oral Tablet (Crestor) Take 1 Tablet by mouth every evening. 02/24/2022 Active Ezetimibe 10 MG Oral Tablet (Zetia) Take 1 Tablet by mouth in the morning. 04/18/2022 Active Fluticasone Propionate 50 MCG/ACT Nasal Suspension (Flonase)Indications :Allergic rhinitis, unspecified seasonality, unspecified trigger USE 2 SPRAYS IN EACH NOSTRIL EVERY MORNING 16 g 3 07/23/2022 Active Pantoprazole Sodium 40 MG Oral Tablet Delayed Release (Protonix) TAKE 1 TABLET BY MOUTH ONCE DAILY for 30 minutes. take before the first meal of the day. do not crush, split or chew the tablet 90 Tablet 3 12/31/2022 Active Citalopram Hydrobromide 20 MG Oral Tablet (CeleXA)Indications: Recurrent major depressive disorder, in partial remission (HCC) Take 1 Tablet by mouth in the morning. 90 Tablet 3 12/31/2022 Active Lisinopril 5 MG Oral Tablet (Prinivil) TAKE ONE TABLET BY MOUTH IN THE MORNING 90 Tablet 2 02/16/2023 Active Additional Information Patient taking differently: 10 mgOral Daily(AM), In the morning., Reported on 09/07/2023 Cyclobenzaprine HCl 5 MG Oral Tablet (Flexeril)Indication s:Muscle spasm TAKE 1 TABLET BY MOUTH THREE TIMES DAILY NEEDED FOR MUSCLE SPASMS 90 Tablet 05/14/2023 Active Levothyroxine Sodium 50 MCG Oral Tablet (Levoxyl) Take 1 Tablet by mouth daily first thing in the morning. (at least 30 min prior to breakfast or other meds) Active Empagliflozin 25 MG Oral Tablet (Jardiance) Take 1 Tablet by mouth in the morning. Active Insulin Glargine 100 UNIT/ML Subcutaneous Solution (Lantus) Inject 85 Units under the skin at bedtime. Active Euflexxa 20 MG/2ML Intra-articular Solution Prefilled Syringe (Sodium Hyaluronate (Viscosup)) Inject 20 mg into the bilateral knee joints once every week for 3 weeks. 12 mL 06/16/2023 Active Albuterol Sulfate HFA 108 (90 Base) MCG/ACT Inhalation Aerosol SolutionIndications: Shortness of breath Inhale 2 Puffs by mouth every 6 hours as needed for Shortness of Breath or Wheezing. 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 09/02/2021 ZAN on CPAP 02/11/2021 MEDICATION USE AGREEMENT 12/26/2019 Hypothyroidism 04/04/2018 Deviated nasal septum 01/12/2018 Rhinitis, nonallergic 12/13/2017 Fibromyalgia Dyslipidemia HTN (hypertension) Migraines documented as of this encounter (statuses as of 10/22/2023) Resolved Problems Problem Noted Date Diagnosed Date Resolved Date Recurrent sinus infections 12/13/2017 0 05/11/2023 Type 2 diabetes mellitus with hyperglycemia 11/23/2017 05/11/2023 Bleeding ulcer 11/23/2017 documented as of this encounter (statuses as of 10/22/2023) Immunizations Name Administration Dates Next Due COVID-19 mRNA, LNP-s, No Pre serve, 2-Dose Series (Framebench) 09/27/2020,09/05/2020 Covid-19, Mrna, Lnp-s, Pf, B ivalent, 30 Mcg, IM, 12 yrs and above (Pfizer) 11/04/2022 Pneumococcal Conjugate Vacci ne, 20-valent ([id number]) 07/06/2022 Pneumococcal Polysaccharide PPV23 (Pneumovax) 10/19/2013 Seasonal Influenza, PF, 6 M & above, IM , (FluLaval or Fluzone) 01/06/2022,11/28/2020,11/28/2019,12/13 Seasonal Influenza, QUAD, wi th Preserv, 6 mons & Above, 0.5 mL, IM 11/04/2022,01/06/2017 Seasonal Influenza, Quadriva lent, No Preserve, IM 01/03/2019 TDAP (age 10 and older)(Boostrix) 01/31/2019 documented as of this encounter Social History Tobacco Use Types Packs/Day Years Used Date Smoking Tobacco: Former Smokeless Tobacco: Never Comments:Passive smoke expos ure at present Alcohol Use Standard Drinks/Week Comments Yes 0 (1 standard drink = 0.6 oz pur e alcohol) occasional AUDIT-C Answer Date Recorded Frequency of Alcohol Consumption Never 04/11/2018 Average Number of Drinks Not on file 019 Frequency of Binge Drinking Not on file 06/2018 PHQ-2 Answer Date Recorded PHQ Adult Total Score 0 05/27/2023 Hunger Vital Sign Answer Date Recorded Within the past 12 months, y ou worried that your food would run out before you got the money to buy more. Never true 05/27/19 24 Within the past 12 months, t he food you bought just didn't last and you didn't have money to get more. Never true 05/27/2023 Childcare Answer Date Recorded Do you feel overwhelmed with taking care of a child, family member or friend? No 05/27/2023 Does your family need help f inding childcare? (Household - for ages 0-17 years) Not on file 05/27/2023 Clothing Answer Date Recorded Have you been unable to get clothing when it was really needed? No 05/27/2023 Is your family able to get c lothes or diapers when needed? (Household - for ages 0-17 years) Not on file 05/27/2023 Personal Safety Answer Date Recorded Do you feel unsafe or have concerns for your saf ety? No 05/27/2023 Do you have concerns for you r family's safety? (Household - for ages 0-17 years) Not on file 05/27/2023 Utilities Answer Date Recorded Do you have trouble paying y our heating, water, or electric bill? No 05/27/2023 Is your family able to pay t he heat, water, or electric bill? (Household - for ages 0-17 years) Not on file 05/27/2023 Does your family have access to good internet? (Household - for ages 0-17 years) Not on file 05/27/2023 Employment Status Answer Date Recorded Are you unemployed or without regular income? No 05/27/2023 Does the household have a re lar source of income? (Household - for ages 0-17 years) Not on file 05/27/2023 Social Connections Answer Date Recorded How often do you feel lonely or isolated from th ose around you? Never 05/27/2023 Financial Resource Strain Answer Date R ecorded Do you have any trouble payi ng for your medications, or do you think you might in the future? No 05/27/2023 Does your family have troubl e paying for medicine? (Household - for ages 0-17 years) Not on file 05/27/2023 Transportation Needs Answer Date Record ed READ ONLY Do you have troubl e getting a ride to medical visits or work? Never True 05/27/2023 Does your family have a hard time getting a ride to doctors visits? (Household - for ages 0-17 years) Not on file 05/27/2023 Has lack of transportation k ept you from medical appointments, meetings, work, or from getting things needed for daily living? Check all that apply. (Adult - for ages 18 years and over) Not on file 05/27/2023 Do you (or your family) have trouble finding or paying for a ride (transportation)? (Household - for ages 0-17 years) Not on file 05/27/2023 Housing Stability Answer Date Recorded Do you currently live in a s helter or have no steady place to sleep at night? No 05/27/2023 READ ONLY Do you think you a re at risk of becoming homeless? No 05/27/2023 Does your family worry about paying for your home or becoming homeless? (Household - for ages 0-17 years) Not on file 0 05/27/2023 Are you homeless or worried that you might be in the future? (Adult - for ages 18 years and over) Not on file Are you (or your family) ira eless or worried that you might be in the future? (Household - for ages 0-17 years) Not on file Food Insecurity Answer Date Recorded Do you need food for this week? No 05/27/2023 Are you able to get enough f ood for your family? (Household - for ages 0-17 years) Not on file 05/27/2023 Does your family need food t his week? (Household - for ages 0-17 years) Not on file 05/27/2023 Do you always have enough fo od for your family? (Household - for ages 0-17 years) Not on file 05/27/2023 Sex and Gender Information Value Date Recorded Sex Assigned at Female 04/25/2022 11:34 AM EST Gender Identity Not on file Sexual Orientation Straight 05/27/2020 12 :06 PM EDT Job Start Date Occupation Industry Not on file Not on file Not on file documented as of this encounter Miscellaneous Notes * Telephone Encounter - Pastor Castellano MD - 10/22/2023 4:57 PM EDT Have called that number and did not get an answer. Please fax my last note which has been addended to give clearance * Telephone Encounter - Angelina Tay OSA - 10/22/2023 12:06 PM EDT Reason for patient's call: Jie from [facility] calling to confirm if Dr. Frost received the pre-op and is signing off on the surgery for surgery on 10/26/[address]. [address] Frost is not able to clear her they are asking who is going to call patient to let her know she is not cleared. They need to hearby the end of day today. Please contact Jie at [phone]. Tried contacting DNL no answer. * Telephone Encounter - Adriana Rodríguez OSA - 10/21/2023 1:39 PM EDT Maggie from [facility] calling to see if pt is clear for surgery Tue? Maggie can be reached at [phone]. * Telephone Encounter - Michelle Crouch OSA - 10/14/2023 3:12 PM EDT Maggie from [facility] is calling in to let the office know that they are faxingover her preop labs. The fax number was confirmed as [phone]. * Telephone Encounter - Gila Ramirez LPN - 10/13/2023 9:30 AM EDT Attempted to call patient, there was no answer, left voicemail. When patient returns call, ok for ZAN to relay message, please refer to below documentation. If needed, can transfer to dedicated nurse line. * Telephone Encounter - Sheryl Berry LPN - 10/11/2023 3:13 PM EDT Called patient's parent, no answer, left message to return our call. * Telephone Encounter - Pastor Castellano MD - 10/10/2023 6:53 PM EDT Please get all of the preop studies that were done and place them at my desk. If there are not any issues with those, she will not need another visit. * Telephone Encounter - Katina Mccabe OSA - 09/30/2023 8:27 AM EDT Maggie I calling asking if the Dr can sign office note from 09/07/23. Pt was see and they are asking if this pt had a pre op clearance that day and if pt would need another appointment. Pt had pre op testing labs done and they can fax labs over for Dr to look at them if needed. Surgery date is 10/26/23. documented in this encounter Plan of Treatment Upcoming Encounters Date Type Department Care Team (Late st Contact Info) Description 04/04/2024 5:40 PM EST Office Visit [facility] [address] [place] [address] Pastor Castellano MD [address], [place] [id number] Scheduled Procedures Name Priority Associated Diagnoses Date/Ti me COLONOSCOPY FLEXIBLE PROXIMAL DIAGNOSTIC Recall Screen for colon cancer Health Maintenance Due Date Last Done Comments Hepatitis C Screening 1976 Cologuard 2003 Fecal Occult Blood Test 2003 Sigmoidoscopy 2003 Zoster Vaccines (1 of 2) 2008 Mammogram 08/20/2018 08/20/2017, 09/13/2015 Albumin/Creatinine Ratio 12/10/2018 12/10/2017, 08/07 COVID-19 Vaccine ( season) 2022 11/04/2022, 09/27/2020, 09/05/2020 DXA Scan 2023 Diabetic Eye Exam 11/05/2023 11/04/2022, , 09/06/2015 TSH 11/05/2023 11/04/2022, 0 09/2021, 12/10/2017, Additional history exists Influenza Vaccine (FLU shot) (#1) 2023 11/04/2022, 01/06/2022, 11/28/2020, Additional history exists HbA1c 02/26/2024 08/27/2023, 10/08, 07/06/2022, Additional history exists Depression Monitoring 05/26/2024 05/27/2023 Diabetic Foot Exam 09/07/2024 09/08/2023, 1 04/23/2021, 01/31/2019 GFR 09/27/2024 09/28/2023, 10/08, 07/06/2022, Additional history exists Lipid Panel 07/07/2027 07/06/2022, 0 09/2021, 04/21/2019, Additional history exists DTaP,Tdap,and Td Vaccines (2 - Td or Tdap) 01/31/2029 01/31/2019 Colonoscopy 07/17/2031 07/16/2021, 07/16/2021 Colorectal Cancer Screening 07/17/2031 Cervical Cancer Screening Discontinued Pap Smear Discontinued 06/06/2020, 03/12/2017 Pneumococcal Vaccine: 65+ Years Completed 07/06/2022, 10/19/2013 HPV (Gardasil) Vaccine Aged Out No lo nger eligible based on patient's age to complete this topic HPV/Co-Test Discontinued Hepatitis B Vaccine Aged Out No longe r eligible based on patient's age to complete this topic MENINGOCOCCAL (MENACTRA/MENVEO) Aged Out No longer eligible based on patient's age to complete this topic documented as of this encounter Medical Devices Not on filedocumented as of this encounter Care Teams Cigar Packer And Picker Relationship Specialty Start Date End Date Pastor Castellano MD [address] [place] [address] PCP - General Family Medicine 06/06/18 documented as of this encounter
--- OUTSIDE RECORDS SUMMARY | 2023-10-26 05:49 | External Medical Summary | Summary of Care ---
Author Name Unknown Organization [facility] Address [address] [facility] [place] [address] Phone [phone] Care Team Providers Care Hat Lining Blocker Name Role Phone Pastor Castellano MD Primary Care Provider +1- [phone] Reason for Visit * Reason Onset Date Comments Advice 09/30/2023 advice Encounter Details Date Type Department Care Team (Late st Contact Info) Description 09/30/2023 Telephone [facility] [address] [place] [address] Pastor Castellano MD [address] [place] [address] Advice (advice) Allergies Active Allergy Reactions Criticality Noted Date Comments Duloxetine Hcl Edema Other 03/12/2017 Gabapentin Edema Other 03/12/2017 Lidocaine Fever High 03/12/2017 Pregabalin Edema Other 03/12/2017 Meloxicam Edema Other 01/12/2018 Procaine Fever 07/30/2017 documented as of this encounter (statuses as of 10/25/2023) Medications Medication Sig Dispensed Refills Start Date End Date Status NOVOLOG FLEXPEN 100 UNIT/ML SUBQ SOLN per sliding scale Active Vitamin D, Ergocalciferol, 10039 units Capsule Take 1 Capsule by mouth [...] every night at bedtime . Active Nystatin 723990 UNIT/GM External Powder (Nystop)Indications: Yeast dermatitis Apply [...] as of this encounter (statuses as of 10/25/2023) Active Problems Problem Noted Date Diagnosed Date [...] as of this encounter (statuses as of 10/25/2023) Resolved Problems Problem Noted Date Diagnosed Date Resolved Date Recurrent sinus infections 12/13/2017 0 05/11/2023 Type 2 diabetes mellitus with hyperglycemia 11/23/2017 05/11/2023 Bleeding ulcer 11/23/2017 documented as of this encounter (statuses as of 10/25/2023) Immunizations Name Administration Dates Next Due COVID-19 mRNA, LNP-s, No Pre serve, 2-Dose Series (Incentivyze) 09/27/2020,09/05/2020 Covid-19, Mrna, Lnp-s, Pf, B ivalent, 30 Mcg, IM, 12 yrs and above (Pfizer) 11/04/2022 Pneumococcal Conjugate Vacci ne, 20-valent ([id number]) 07/06/2022 Pneumococcal Polysaccharide PPV23 (Pneumovax) 10/19/2013 Seasonal [...] encounter Miscellaneous Notes * Telephone Encounter - Sheryl Berry LPN - 10/25/2023 9:05 AM EDT Pre op clearance has been faxed to [phone] on 10/24. * Telephone Encounter - Pastor Castellano MD - 10/22/2023 4:57 PM EDT Have called the 2 numbers that I see and did not get an answer. Please fax my last note which has been addended to give clearance * Telephone Encounter - Angelina Tay OSA - 10/22/2023 12:06 PM EDT Reason for patient's call: Jie from [facility] calling to confirm if Dr. Frost received the pre-op and is signing off on the surgery for surgery on 10/26/[address]. [address] Frost is not able to clear her they are asking who is going to call patient to let her know she is not cleared. They need to hearby the end of day today. Please contact Jie at [phone]. Tried contacting DNL no answer. * Telephone Encounter - Adriana Rodríguez OSA - 10/21/2023 1:39 PM EDT Maggie from [facility] calling to see if pt is clear for surgery Tue? Maggie can be reached at [phone]. * Telephone Encounter - Michelle Crouch OSA - 10/14/2023 3:12 PM EDT Maggie from [facility] is calling in to let the office know that they are faxingover her preop labs. The fax number was confirmed as [phone]. * Telephone Encounter - Gila Ramirez LPN [...] Description 04/04/2024 5:40 PM EST Office Visit [facility] [address] [place] [id number] Pastor Castellano MD [address] [place] [address] Scheduled Procedures Name Priority Associated Diagnoses Date/Ti [...] 11/05/2023 11/04/2022, , 09/06/2015 TSH 11/05/2023 11/04/2022, 09/2021, 12/10/2017, Additional history exists Influenza Vaccine [...] filedocumented as of this encounter Care Teams Hat Lining Blocker Relationship Specialty Start Date End Date Pastor Castellano MD [address] [place] [facility] [place] [id number] PCP - General Family Medicine 06/06/18 documented as of this encounter
--- OUTSIDE RECORDS SUMMARY | 2023-10-26 05:49 | External Medical Summary | Summary of Care ---
Author Name Unknown Organization [facility] Address [address] [facility] [place] [address] Phone [phone] Care Team Providers Care Advertising Dispatch Clerks Supervisor Name Role Phone Pastor Castellano MD Primary Care Provider +1- [phone] Reason for Visit * Reason Onset Date Comments Advice 09/30/2023 advice Encounter Details Date Type Department Care Team (Late st Contact Info) Description 09/30/2023 Telephone [facility] [address] [place] [address] Pastor Castellano MD [address] [place] [address] Advice (advice) Allergies Active Allergy [...] per sliding scale Active Vitamin D, Ergocalciferol, 61338 units Capsule Take 1 Capsule by mouth [...] every night at bedtime . Active Nystatin 529114 UNIT/GM External Powder (Nystop)Indications: Yeast dermatitis Apply [...] mRNA, LNP-s, No Pre serve, 2-Dose Series (FamilyLink) 09/27/2020,09/05/2020 Covid-19, Mrna, Lnp-s, Pf, B ivalent, 30 Mcg, IM, 12 yrs and above (Pfizer) 11/04/2022 Pneumococcal Conjugate Vacci ne, 20-valent ([id number]) 07/06/2022 Pneumococcal Polysaccharide PPV23 (Pneumovax) 10/19/2013 Seasonal [...] EDT Reason for patient's call: Jie from [facility] calling to confirm if Dr. Frost received the pre-op and is signing off on the surgery for surgery on 10/26/23. If Dr. Frost is not able to clear her they are asking who is going to call patient to let her know she is not cleared. They need to hearby the end of day today. Please contact Jie at [phone]. Tried contacting DNL no answer. * Telephone Encounter - Adriana Rodríguez OSA - 10/21/2023 1:39 PM EDT Maggie from [facility] calling to see if pt is clear for surgery Tue? Maggie can be reached at [phone]. * Telephone Encounter - Michelle Crouch OSA - 10/14/2023 3:12 PM EDT Maggie from [facility] is calling in to let the office know that they are faxingover her preop labs. The fax number was confirmed as [phone]. * Telephone Encounter - Gila Ramirez LPN [...] Description 04/04/2024 5:40 PM EST Office Visit [facility] [address] [place] [address] Pastor Castellano MD [address] [place], [place] [address] Scheduled Procedures Name Priority Associated Diagnoses Date/Ti [...] filedocumented as of this encounter Care Teams Advertising Dispatch Clerks Supervisor Relationship Specialty Start Date End Date Pastor Castellano MD [address] [place] [address] PCP - General Family Medicine 06/06/18 documented as of this encounter
--- OUTSIDE RECORDS SUMMARY | 2023-10-26 05:49 | External Medical Summary | Summary of Care ---
Author Name Unknown Organization [facility] Address [address] [facility] [place] [address] Phone [phone] Care Team Providers Care Accounting Coordinator Name Role Phone Pastor Castellano MD Primary Care Provider +1- [phone] Reason for Visit * Reason Onset Date Comments Advice 09/30/2023 advice Encounter Details Date Type Department Care Team (Late st Contact Info) Description 09/30/2023 Telephone [facility] [address] [place] [address] Pastor Castellano MD [address] [place] [address] Advice (advice) Allergies Active Allergy [...] per sliding scale Active Vitamin D, Ergocalciferol, 56354 units Capsule Take 1 Capsule by mouth [...] every night at bedtime . Active Nystatin 089331 UNIT/GM External Powder (Nystop)Indications: Yeast dermatitis Apply [...] mRNA, LNP-s, No Pre serve, 2-Dose Series (FanBridge) 09/27/2020,09/05/2020 Covid-19, Mrna, Lnp-s, Pf, B ivalent, 30 Mcg, IM, 12 yrs and above (Pfizer) 11/04/2022 Pneumococcal Conjugate Vacci ne, 20-valent ([id number]) 07/06/2022 Pneumococcal Polysaccharide PPV23 (Pneumovax) 10/19/2013 Seasonal [...] EDT Reason for patient's call: Jie from [facility] calling to confirm if Dr. Frost received the pre-op and is signing off on the surgery for surgery on 10/26/23. If Dr. Frost is not able to clear her they are asking who is going to call patient to let her know she is not cleared. They need to hearby the end of day today. Please contact Jie at [phone]. Tried contacting DNL no answer. * Telephone Encounter - Adriana Rodríguez OSA - 10/21/2023 1:39 PM EDT Maggie from [facility] calling to see if pt is clear for surgery Tue? Maggie can be reached at [phone]. * Telephone Encounter - Michelle Crouch OSA - 10/14/2023 3:12 PM EDT Maggie from [facility] is calling in to let the office know that they are faxingover her preop labs. The fax number was confirmed as [phone]. * Telephone Encounter - Gila Ramirez LPN [...] Description 04/04/2024 5:40 PM EST Office Visit [facility] [address] [place] [address] Pastor Castellano MD [address] [place] [address] Scheduled Procedures Name Priority Associated Diagnoses Date/Ti [...] filedocumented as of this encounter Care Teams Accounting Coordinator Relationship Specialty Start Date End Date Pastor Castellano MD [address] [place] [facility] [place] [address] PCP - General Family Medicine 06/06/18 documented as of this encounter
--- OUTSIDE RECORDS SUMMARY | 2023-10-26 05:49 | External Medical Summary | Summary of Care ---
Author Name Unknown Organization [facility] Address [address] [facility] [place] [address] Phone [phone] Care Team Providers Care Bobbin Painter Name Role Phone Pastor Castellano MD Primary Care Provider [phone]- [phone] Reason for Visit * Reason Onset Date Comments Advice 09/30/2023 advice Encounter Details Date Type Department Care Team (Late st Contact Info) Description 09/30/2023 Telephone [facility] [address] [place] [address] Pastor Castellano MD [address] [place] [address] Advice (advice) Allergies Active Allergy [...] per sliding scale Active Vitamin D, Ergocalciferol, 76703 units Capsule Take 1 Capsule by mouth [...] every night at bedtime . Active Nystatin 026384 UNIT/GM External Powder (Nystop)Indications: Yeast dermatitis Apply [...] mRNA, LNP-s, No Pre serve, 2-Dose Series ([employer]) 09/27/2020,09/05/2020 Covid-19, Mrna, Lnp-s, Pf, B ivalent, 30 Mcg, IM, 12 yrs and above (Pfizer) 11/04/2022 Pneumococcal Conjugate Vacci ne, 20-valent ([id number]) 07/06/2022 Pneumococcal Polysaccharide PPV23 (Pneumovax) 10/19/2013 Seasonal [...] EDT Reason for patient's call: Jie from [facility] calling to confirm if Dr. Frost received the pre-op and is signing off on the surgery for surgery on 10/26/23. [address] Frost is not able to clear her they are asking who is going to call patient to let her know she is not cleared. They need to hearby the end of day today. Please contact Jie at [phone]. Tried contacting [facility] no answer. * Telephone Encounter - Adriana Rodríguez OSA - 10/21/2023 1:39 PM EDT Maggie from [facility] calling to see if pt is clear for surgery Tue? Maggie can be reached at [phone]. * Telephone Encounter - Michelle Crouch OSA - 10/14/2023 3:12 PM EDT Maggie from [facility] is calling in to let the office know that they are faxingover her preop labs. The fax number was confirmed as [phone]. * Telephone Encounter - Gila Ramirez LPN [...] Description 04/04/2024 5:40 PM EST Office Visit [facility] [address] [place] [address] Pastor Castellano MD [address] [place] [address] Scheduled Procedures Name Priority Associated Diagnoses Date/Ti [...] filedocumented as of this encounter Care Teams Bobbin Painter Relationship Specialty Start Date End Date Pastor Castellano MD [address] [place] [facility] [place] [address] PCP - General Family Medicine 06/06/18 documented as of this encounter
--- OUTSIDE RECORDS SUMMARY | 2023-10-26 05:49 | External Medical Summary | Summary of Care ---
Author Name Unknown Organization [facility] Address [address] [facility] [place] [address] Phone [phone] Care Team Providers Care Can Marker Name Role Phone Pastor Castellano MD Primary Care Provider [phone]- [phone] Reason for Visit * Reason Onset Date Comments Advice 10/22/2023 Encounter Details Date Type Department Care Team (Late st Contact Info) Description 10/22/2023 Telephone [facility] [address] [place] [address] Pastor Castellano MD [address] [place] [address] Advice Allergies Active Allergy Reactions Criticality Noted Date [...] per sliding scale Active Vitamin D, Ergocalciferol, 07781 units Capsule Take 1 Capsule by mouth [...] Active Fexofenadine HCl 180 MG Oral Tablet (VINI)Indication s:Allergic rhinitis, unspecified seasonality, unspecified trigger Take 1 Tab by mouth daily as needed for Allergies. 30 Tab 11 01/05/2020 Active Lantus SoloStar 100 UNIT/ML Subcutaneous Solution Pen-injector 80 units at bed time 04/29/2020 Active BiPAP every night at bedtime . Active Nystatin 171030 UNIT/GM External Powder (Nystop)Indications :Yeast dermatitis Apply to affected areas up to twice per day as needed. 30 g 3 05/28/2021 Active Multivitamin Adults 50+ Oral TabletIndications:i n am Take by mouth . Active Rosuvastatin Calcium 40 MG Oral Tablet (Crestor) Take 1 Tablet by mouth every evening. 02/24/2022 Active Ezetimibe 10 MG Oral Tablet (Zetia) Take 1 Tablet by mouth in the morning. 04/18/2022 Active Fluticasone Propionate 50 MCG/ACT Nasal Suspension (Flonase)Indication s:Allergic rhinitis, unspecified seasonality, unspecified trigger USE 2 [...] Active Citalopram Hydrobromide 20 MG Oral Tablet (CeleXA)Indications :Recurrent major depressive disorder, in partial remission (HCC) Take 1 Tablet by mouth in the morning. 90 Tablet 3 12/31/2022 Active Lisinopril 5 MG Oral Tablet (Prinivil) TAKE ONE TABLET BY MOUTH IN THE MORNING 90 Tablet 2 02/16/2023 Active Additional Information Patient taking differently: 10 mgOral Daily(AM), In the morning., Reported on 09/07/2023 Cyclobenzaprine HCl 5 MG Oral Tablet (Flexeril)Indicatio ns:Muscle spasm TAKE 1 TABLET BY MOUTH THREE [...] HFA 108 (90 Base) MCG/ACT Inhalation Aerosol SolutionIndications :Shortness of breath Inhale 2 Puffs by mouth every 6 hours as needed for Shortness of Breath or Wheezing. 18 g 06/21/2023 Active Cetirizine HCl 10 MG Oral Tablet (ZyrTEC) TAKE 1 TABLET BY MOUTH EVERY MORNING 90 Tablet 1 08/09/2023 Active Amphetamine-Dextroa mphetamine 20 MG Oral Tablet (Adderall) Take 1 Tablet by mouth in the morning and 1 Tablet before bedtime. 60 Tablet 09/30/2023 Active oxyCODONE-Acetamino phen 5-325 MG Oral Tablet (Percocet)Indicatio ns:Chronic bilateral low back pain without sciatica Take 1 Tablet by mouth every 4 hours as needed for Pain, Breakthrough. Max of 5 per day. 150 Tablet 09/30/2023 Active documented as of this encounter (statuses [...] mRNA, LNP-s, No Pre serve, 2-Dose Series (Pfizer) 09/27/2020,09/05/2020 Covid-19, Mrna, Lnp-s, Pf, B ivalent, 30 Mcg, IM, 12 yrs and above (Pfizer) 11/04/2022 Pneumococcal Conjugate Vacci ne, 20-valent ([id number]) 07/06/2022 Pneumococcal Polysaccharide PPV23 (Pneumovax) 10/19/2013 Seasonal [...] 05/27/2023 Does the household have a re gular source of income? (Household - for ages [...] Encounter - Sheryl Berry LPN - 10/25/2023 9:04 AM EDT Pre op clearance has been faxed on 10/24. At [phone]. * Telephone Encounter - Karen Hampton LPN - 10/22/2023 5:09 PM EDT Left message on pt's answering machine letting her know we faxed the information needed for clearance for her surgery to her surgeon. Also, we were not able to get through by phone to the surgeons office. * Telephone Encounter - Renata Adams OSA - 10/22/2023 2:29 PM EDT Pt is calling to advised she's having a knee surgery on Wednesday10/26/23, but Dr Ac Medina from [facility] that's doing the surgery advised the pt they never received a sign off from pt pcp okaying the surgery and if the pt doesn't get it over to them they will cancel the surgery. Pleasefax clearance to Dr Ac Medina's office at . cheryl Thank you documented in this encounter Plan of Treatment Upcoming Encounters Date Type Department Care Team (Late st Contact Info) Description 04/04/2024 5:40 PM EST Office Visit [facility] [address] [place] [address] Pastor Castellano MD [address] [place] [address] Scheduled Procedures Name Priority Associated Diagnoses Date/Ti [...] 11/05/2023 11/04/2022, , 09/06/2015 TSH 11/05/2023 11/04/2022, 11/0 09/2021, 12/10/2017, Additional history exists Influenza Vaccine (FLU shot) (#1) 2023 11/04/2022, 01/06/2022, 11/28/2020, Additional history exists HbA1c 02/26/2024 08/27/2023, 10/08, 07/06/2022, Additional history exists Depression Monitoring 05/26/2024 05/27/2023 Diabetic Foot Exam 09/07/2024 09/08/2023, 1 04/23/2021, 01/31/2019 GFR 09/27/2024 09/28/2023, 10/08, 07/06/2022, Additional history exists Lipid Panel 07/07/2027 07/06/2022, 110 09/2021, 04/21/2019, Additional history exists DTaP,Tdap,and Td [...] filedocumented as of this encounter Care Teams Can Marker Relationship Specialty Start Date End Date Pastor Castellano MD [address] [place] [address] PCP - General Family Medicine 06/06/18 documented as of this encounter
--- OUTSIDE RECORDS SUMMARY | 2023-10-26 05:49 | External Medical Summary | Summary of Care ---
Author Name Unknown Organization [facility] Address [address] [facility] [place] [address] Phone [phone] Care Team Providers Care Career Center Advisor Name Role Phone Pastor Castellano MD Primary Care Provider [phone]- [phone] Reason for Visit * Reason Comments Follow Up Patient is here for follow up visit Patient states she is having right knee replacement surgery on 10/[address] for initial visit on 09/27Patient states she would like to do her pre op surgery today Patient states she would like to discuss osteoporosis Encounter Details Date Type Department Care Team (Latest Contact Info) Description 09/07/2023 5:40 PM EDT Office Visit [place] [address] [place] [address] Pastor Castellano MD [address] [place] [address] Preoperative general physical examination*; Encounter for screening mammogram for malignant neoplasm of breast; Type 2 diabetes mellitus with hyperglycemia, with long-term current use of insulin (HCC); Postmenopausal status, age-related; Type 2 diabetes mellitus with diabetic polyneuropathy, with long-term current use of insulin ([facility]); Acquired hypothyroidism; Dyslipidemia; ZAN on CPAP; Primary hypertension; Fibromyalgia; Primary osteoarthritis of right knee Allergies Active Allergy Reactions Criticality Noted Date [...] per sliding scale Active Vitamin D, Ergocalciferol, 93508 units Capsule Take 1 Capsule by mouth [...] SOLN 09/14/2018 Active ONETOUCH VERIO STRP 09/30/2018 Active Lidocaine 5 % CREA Apply to affected area three times per day as needed 1 Tube 1 05/26/2019 Active Fexofenadine HCl 180 MG Oral Tablet (VINI)Indicatio ns:Allergic rhinitis, unspecified seasonality, unspecified trigger Take 1 Tab by mouth daily as needed for Allergies. 30 Tab 11 01/05/2020 Active Lantus SoloStar 100 UNIT/ML Subcutaneous Solution Pen-injector 80 units at bed time 04/29/2020 Active BiPAP every night at bedtime . Active Nystatin 999579 UNIT/GM External Powder (Nystop)Indication s:Yeast dermatitis Apply to affected areas up to twice per day as needed. 30 g 3 05/28/2021 Active Multivitamin Adults 50+ Oral TabletIndications: in am Take by mouth . Active Rosuvastatin Calcium 40 MG Oral Tablet (Crestor) Take 1 Tablet by mouth every evening. 02/24/2022 Active Ezetimibe 10 MG Oral Tablet (Zetia) Take 1 Tablet by mouth in the morning. 04/18/2022 Active Fluticasone Propionate 50 MCG/ACT Nasal Suspension (Flonase)Indicatio ns:Allergic rhinitis, unspecified seasonality, unspecified trigger USE 2 [...] Active Citalopram Hydrobromide 20 MG Oral Tablet (CeleXA)Indication s:Recurrent major depressive disorder, in partial remission (HCC) Take 1 Tablet by mouth in the morning. 90 Tablet 3 12/31/2022 Active Lisinopril 5 MG Oral Tablet (Prinivil) TAKE ONE TABLET BY MOUTH IN THE MORNING 90 Tablet 2 02/16/2023 Active Additional Information Patient taking differently: 10 mgOral Daily(AM), In the morning., Reported on 09/07/2023 Cyclobenzaprine HCl 5 MG Oral Tablet (Flexeril)Indicati ons:Muscle spasm TAKE 1 TABLET BY MOUTH THREE [...] HFA 108 (90 Base) MCG/ACT Inhalation Aerosol SolutionIndication s:Shortness of breath Inhale 2 Puffs by mouth every 6 hours as needed for Shortness of Breath or Wheezing. 18 g 06/21/2023 Active Cetirizine HCl 10 MG Oral Tablet (ZyrTEC) TAKE 1 TABLET BY MOUTH EVERY MORNING 90 Tablet 1 08/09/2023 Active Amphetamine-Dextro amphetamine 20 MG Oral Tablet (Adderall) Take 1 Tablet by mouth in the morning and 1 Tablet before bedtime. 60 Tablet 09/01/2023 4 Discontinue d(Refill) oxyCODONE-Acetamin ophen 5-325 MG Oral Tablet (Percocet)Indicati ons:Chronic bilateral low back pain without sciatica Take 1 Tablet by mouth every 4 hours as needed for Pain, Breakthrough. Max of 5 per day. 150 Tablet 09/01/2023 4 Discontinue d(Refill) documented as of this encounter (statuses as [...] mRNA, LNP-s, No Pre serve, 2-Dose Series (Simalaya) 09/27/2020,09/05/2020 Covid-19, Mrna, Lnp-s, Pf, B ivalent, 30 Mcg, IM, 12 yrs and above (Pfizer) 11/04/2022 Pneumococcal Conjugate Vacci ne, 20-valent ([id number]) 07/06/2022 Pneumococcal Polysaccharide PPV23 (Pneumovax) 10/19/2013 Seasonal [...] on file documented as of this encounter Last Filed Vital Signs Vital Sign Reading Time Taken Comments Blood Pressure 118/62 09/07/2023 5:29 PM EDT Pulse 93 09/07/2023 5:29 PM EDT Temperature 37.1 C (98.7 F) 09/07/2023 5:29 PM ED T Respiratory Rate 16 09/07/2023 5:29 PM EDT Oxygen Saturation 98% 09/07/2023 5:29 PM EDT Inhaled Oxygen Concentration - - Weight 84.9 kg (187 lb 3.2 oz) 09/07/2023 5:29 P M EDT Height - - Body Mass Index 33.16 11/13/2022 8:31 AM EDT documented in this encounter Patient Instructions * Patient Instructions* FacerLorenzo, MED ASSIST - 09/07/2023 5:25 PM EDT Images from the original note were not included. Mammography Mammography is an X-ray exam of your breast tissue. The image it makes is called a mammogram. A mammogram can help find problems with your breasts, such as cysts or cancer. Mammography is the best breast cancer screening tool available. Have screening mammograms and professional breast exams as often as your healthcare provider recommends. Also, be sure you know how your breasts normally look and feel. This makes it easier to noticeany changes. Report changes to your healthcare provider as soon as possible. How do I get ready for a mammogram? Schedule the test for 1 week after your period. Your breasts are less sore then. Make sure your clinic gets images of your last mammogram if it was done somewhere else. This lets the provider compare the 2 sets of images for any changes. On the morning of your test, dont use deodorant, powder, or perfume. Wear a top that you can take off easily. What happens during a mammogram? You will need to undress from the waist up. The technologist will position your breast to get the best test results. Each of your breasts will be compressed one at a time. This helps get the most complete X-ray image. Your breasts will be repositioned to get at least 2 separate views of each breast. What happens after a mammogram? More X-rays are sometimes needed. If not done at the time of your initial mammogram, youll be called to schedule them. You should receive your test results in writing. Ask about this on the day of your appointment. Have mammograms as often as your healthcare provider recommends. Let the technologist know if: Youre or think you may be You have breast implants You have any scars or moles on or near your breasts Youve had a breast biopsy or surgery Youre Date Last Reviewed: 08/06/201619990938-0256 [employer]. [address] [place], [place] [id number]. All rights reserved. This information is not intended as a substitute for professional medical care. Always follow your healthcare professional's instructions Diabetes: Keeping Feet Healthy Inspect your feet every day for signs of a problem. Diabetes can damage nerves in your feet and cause neuropathy. This condition makes it hard for you to feel injuries or sore spots. Diabetes can also change blood flow, making it harder for small problems, like a blister, to heal properly. In fact, minor injuries can quickly become serious infections that send you to the hospital. Practice self-care to protect your feet and keep them healthy. Take Special Care Inspect your feet daily for problems such as redness, blisters, cracks, dry skin, or numbness. Use a mirror to see the bottoms of your feet. Or, ask for help. Manage your diabetes. Monitor and control your blood sugar. Take all your medications as prescribed. Avoid walking barefoot, even indoors. Wash your feet with warm water and mild soap. Dry well, especially between toes. Dont treat corns or calluses yourself. Talk to your doctor or java development team lead (a doctor who specializes in foot care) if you need assistance trimming your toenails. Use moisturizing cream or lotion if you have dry skin, but dont use it between toes. Dont use heating pads on your feet. If you have neuropathy, you could get a burn and not feel it. Stop smoking. Smoking restricts blood flow and can make it harder for wounds to heal. Have Regular Checkups Foot problems can develop quickly. So be sure to follow your healthcare teams schedule for regular checkups. During office visits, take off your shoes and socks as soon as you get in the exam room. Ask your healthcare provider to examine your feet for problems. This will make it easier to find and treat small skin irritations before they get worse. Regular checkups can also help keep track of the blood flow and feeling in your feet. If you have neuropathy, you may need to have checkups more often. Wear Proper Footwear Wearing proper footwear is very important. If areas of your feet have been damaged by too much pressure, your healthcare provider may recommend changing your footwear. In some cases, avoiding high heels or tight work boots may be all thats needed. Or, your healthcare provider may recommend special shoes or custom inserts. These help protect your feet and keep existing irritations from getting worse. If you need special footwear, ask your healthcare provider if you qualify for [employer] diabetic shoe program. Make Sure Shoes and Socks Fit Any pair of shoes--new or old--should feel comfortable as soon as you put them on. There shouldnt be any rubbing when you walk. Wear the right shoe for any activity. For instance, a running shoe is designed to keep your feet injury-free while jogging. Buy shoes at the end of the day, when your feet are larger. Make sure they provide support without feeling too loose. Make sure your socks fit, t oo. Wear soft, seamless, well-padded socks for activity. Cotton or microfiber socks are best to help to absorb sweat. To protect your feet, avoid shoes that are open-toed or open-heeled. If you have questions about what kinds of shoes and socks are best, talk to your healthcare team. Get Regular Exercise Regular exercise improves blood flow in your feet. It also increases foot strength and flexibility.Gentle exercises, like walking or riding a stationary bicycle, are best. You can also do special foot exercises. Just be sure to talk with your healthcare provider before starting any exercise program. Also mention if any exercise causes pain, redness, or other signs of foot problems. Note: If you have any kind of break in the skin of your foot or ankle, keep the area clean. Then call your doctor--especially if the area doesnt appear to be healing. 2502-9[address] [employer], [address] [place] [address], [place] [address]. All rights reserved. This information is not intended as a substitute for professional medical care. Always follow your healthcare professional's instructions. Osteoporosis: Screening for Bone Loss The strength of bones is measured by their density (thickness). High bone density means bones are less likely to fracture. If you are at risk for bone loss, your healthcare provider may refer you forbone density testing. Bone Density Testing Bone density testing is safe, quick, easy, and painless. Testing can detect osteoporosis before a fracture happens. It can also predict the risk of future fractures. And testing can measure the response to treatment. There are two types of tests that you may have: Peripheral tests are used for screening. They measure density in the finger, wrist, knee, musa, or heel. A common peripheral test is the quantitative ultrasound (QUS). Central tests are used for diagnosis. They measure density in the hip or spine. The main centraltest is the dual energy x-ray absorptiometry (DXA). The DXA is the standard bone density test. Who Should Be Tested? All postmenopausal women under age 65, with one or more risk factors in addition to menopause. All women age 65 and older. Postmenopausal women with fractures. Women who are thinking about treatment for osteoporosis. Women who have been on hormone therapy for a long time. Men or women with certain medical conditions or who are taking certain medications (such as glucocorticoids or prednisone) for a long period. Common Testing Sites Any bone can fracture, but with osteoporosis some bones fracture more easily. These include bones in the spine, wrist, shoulder, and hip. Thats why bone density testing may be done at one or more of these sites. Understanding Your Results The results of your test may seem confusing at first. Dont be afraid to ask your provider to explain. Your bone mineral density (BMD) describes the thickness of the bone that was scanned. Your healthcare provider will compare your BMD with the BMD of young, healthy bone. The result is called a T-score. Bones remodel at different rates. So, a healthy T-score in the wrist doesnt mean the spine is also healthy. Thats why more than one site may be scanned. [employer], [address] [place] [address]. All rights reserved. This information is not intended as a substitute for professional medical care. Always follow your healthcare professional's instructions documented in this encounter Progress Notes * Pastor Castellano MD - 09/07/2023 5:38 PM EDT Subjective: Jesica Chun is a 63 year old female here today for Chief Complaint Patient presents with Follow Up Patient is here for follow up visit Patient states she is having right knee replacement surgery on 10/[address] for initial visit on 09/27 Patient states she would like to do her pre op surgery today Patient states she would like to discuss osteoporosis Pt presents for routine recheck but would like appointment to be for preoperative medical evaluation. Visit requested by Dr Medina who will be performing right total knee arthroplasty at [facility] on 10/26/23. Pt has a visit for preop labs, EKG on 09/28/23. Pt has been working with [facility] to improve blood sugars to a level where she can have the surgery. Here most recent hgba1c was 7.5 but her monitor indicates a hgba1c over the past few weeks of 7.1. Her medical issues are stable. Her activity is currently limited by her knee pain and not cardiac or pulmonary symptoms. Denies chest pain, shortness of breath, cough, nausea, vomiting, abd pain, dysuria, urinary frequency, nocturia, fever, melena, hematochezia, peripheral edema. Family History Problem Relation Name Age of Onset Heart Disorder Mother rheumatic fever as child Heart Disorder Father 2 bypasses, dm Endocrine Disorder Father Other (AR) Sister Heart Disorder Brother mi Other (AR) Brother Past Medical History: Diagnosis Date Anxiety Arthritis knees, hips, ankles, hands, shoulder Bleeding ulcer 1989 Depression DM (diabetes mellitus) (HCC) Dyslipidemia Fibromyalgia HTN (hypertension) Migraines Recurrent sinus infections Past Surgical History: Procedure Laterality Date COLONOSCOPY, DIAGNOSTIC (RECTUM) 07/16/2021 diverticulosis, repeat 10 yrs / COLONOSCOPY FLEXIBLE PROXIMAL DIAGNOSTIC performed by Ambar Watson DO at ENDOSCOPY [facility] LAPAROSCOPY;APPENDECTOMY REDUCTION OF BREAST Bilateral 2015 VAGINAL DELIVERY ONLY x2 Review of patient's allergies indicates: Allergen Reactions Lidocaine Fever Cymbalta [Duloxetine Hcl] Edema Other Gabapentin Edema Other Lyrica [Pregabalin] Edema Other Meloxicam Edema Other Novocain [Procaine] Fever Current Outpatient Medications Medication Sig Dispense Refill NOVOLOG FLEXPEN 100 UNIT/ML SUBQ SOLN per sliding scale Vitamin D, Ergocalciferol, 39449 units Capsule Take 1 Capsule by mouth once a week. Azelastine HCl 0.1 % nasal spray Administer 2 Sprays into nostril 2 times a day. 30 mL 12 BD PEN NEEDLE AVELINO U/F 32G X 4 MM Inject 1 Each as directed in the morning and 1 Each at noon and 1Each in the evening and 1 Each before bedtime. Blood Glucose Calibration (ONETOUCH VERIO) SOLN ONETOUCH VERIO STRP Lidocaine 5 % CREA Apply to affected area three times per day as needed 1 Tube 1 Fexofenadine HCl 180 MG Oral Tablet (VINI) Take 1 Tab by mouth daily as needed for Allergies. 30Tab 11 Lantus SoloStar 100 UNIT/ML Subcutaneous Solution Pen-injector 80 units at bed time BiPAP every night at bedtime . Nystatin 270699 UNIT/GM External Powder (Nystop) Apply to affected areas up to twice per day as needed. 30 g 3 Multivitamin Adults 50+ Oral Tablet Take by mouth . Rosuvastatin Calcium 40 MG Oral Tablet (Crestor) Take 1 Tablet by mouth every evening. Ezetimibe 10 MG Oral Tablet (Zetia) Take 1 Tablet by mouth in the morning. Fluticasone Propionate 50 MCG/ACT Nasal Suspension (Flonase) USE 2 SPRAYS IN EACH NOSTRIL EVERY MORNING 16 g 3 Pantoprazole Sodium 40 MG Oral Tablet Delayed Release (Protonix) TAKE 1 TABLET BY MOUTH ONCE DAILY for 30 minutes. take before the first meal of the day. do not crush, split or chew the tablet 90 Tablet 3 Citalopram Hydrobromide 20 MG Oral Tablet (CeleXA) Take 1 Tablet by mouth in the morning. 90 Tablet3 Lisinopril 5 MG Oral Tablet (Prinivil) TAKE ONE TABLET BY MOUTH IN THE MORNING (Patient taking differently: Take 2 Tablets by mouth in the morning. In the morning..) 90 Tablet 2 Cyclobenzaprine HCl 5 MG Oral Tablet (Flexeril) TAKE 1 TABLET BY MOUTH THREE TIMES DAILY NEEDED FOR MUSCLE SPASMS 90 Tablet 0 Levothyroxine Sodium 50 MCG Oral Tablet (Levoxyl) Take 1 Tablet by mouth daily first thing in the morning. (at least 30 min prior to breakfast or other meds) Empagliflozin 25 MG Oral Tablet (Jardiance) Take 1 Tablet by mouth in the morning. Insulin Glargine 100 UNIT/ML Subcutaneous Solution (Lantus) Inject 85 Units under the skin at bedtime. Euflexxa 20 MG/2ML Intra-articular Solution Prefilled Syringe (Sodium Hyaluronate (Viscosup)) Inject 20 mg into the bilateral knee joints once every week for 3 weeks. 12 mL 0 Cetirizine HCl 10 MG Oral Tablet (ZyrTEC) TAKE 1 TABLET BY MOUTH EVERY MORNING 90 Tablet 1 Albuterol Sulfate HFA 108 (90 Base) MCG/ACT Inhalation Aerosol Solution Inhale 2 Puffs by mouth every 6 hours as needed for Shortness of Breath or Wheezing. 18 g 0 Amphetamine-Dextroamphetamine 20 MG Oral Tablet (Adderall) Take 1 Tablet by mouth in the morning and 1 Tablet before bedtime. 60 Tablet 0 oxyCODONE-Acetaminophen 5-325 MG Oral Tablet (Percocet) Take 1 Tablet by mouth every 4 hours as needed for Pain, Breakthrough. Max of 5 per day. 150 Tablet 0 No current facility-administered medications for this visit. Objective: BP 118/62 | Pulse 93 | Temp 37.1 C (98.7 F) (Tympanic) | Resp 16 | Wt 84.9 kg (187 lb 3.2 oz) | SpO2 98% | BMI 33.16 kg/m | BSA 1.94 m GEN: NAD HEENT: Benign NECK: Supple with no LAD, TM, JVD CHEST: CTA B CV: RRR ABD: Soft, NT/ND, No HSM, NABS EXT: No c,c,e Assessment and Plan: Preoperative general physical examination (Primary) -continue current meds. Medical issues are stable. She has had improvement in hgba1c to levels thatare acceptable for surgery. Will review preoperative test results when available to give full clearance. Encounter for screening mammogram for malignant neoplasm of breast Type 2 diabetes mellitus with hyperglycemia, with long-term current use of insulin (HCC) - DIABETES FOOT EXAM Postmenopausal status, age-related Type 2 diabetes mellitus with diabetic polyneuropathy, with long-term current use of insulin ([facility]) Acquired hypothyroidism Dyslipidemia ZAN on CPAP Primary hypertension Fibromyalgia Primary osteoarthritis of right knee -all stable, continue current treatments Follow Up: Return in about 6 months (around 03/09/2024) for recheck. | For: recheck 35 min with pt and chart review. Pastor Castellano MD 10/22/23 Addendum: Preoperative labs from [facility] reviewed. Patient is stable and appropriate to proceed with surgery. Pastor Castellano MD * Lorenzo Ramirez MED ASSIST - 09/07/2023 5:25 PM EDT Urine albumin/creatinine ratio ordered today. Provider aware. Socks and Shoes Removed for Annual Diabetic Foot Screening RIGHT FOOT: No Reddened, Cracking, Or Open Areas Noted. RIGHT Dorsalis Pedis Pulse: Palpable RIGHT Posterior Tibial Pulse: Palpable RIGHT Monofilament:Patient reports feeling monofilament pressure on plantar surface of foot LEFT FOOT: No Reddened, Cracking or Open Areas Noted. LEFT Dorsalis Pedis Pulse: Palpable LEFT Posterior Tibial Pulse: Palpable LEFT Monofilament:Patient reports feeling monofilament pressure on plantar surface of foot Do you need diabetic shoes: No DM Foot Exam completed today. Provider aware. KAILYN Thacker Dexa scan ordered today. Provider aware. KAILYN Thacker documented in this encounter Nursing Notes * Lorenzo Ramirez MED ASSIST - 09/07/2023 5:34 PM EDT The patient has been properly identified by confirmation of name and date of . Chief Complaint Patient presents with Follow Up Patient is here for follow up visit Patient states she is having right knee replacement surgery on 10/25 but goes to for initial visit on 09/27 Patient states she would like to do her pre op surgery today Patient states she would like to discuss osteoporosis documented in this encounter Plan of Treatment Upcoming Encounters Date Type Department Care Team (Late st Contact Info) Description 04/04/2024 5:40 PM EST Office Visit [facility] [address] [place] [address] Pastor Castellano MD [address] [place] [address] Scheduled Procedures Name Priority Associated Diagnoses Date/Ti [...] 11/28/2020, Additional history exists HbA1c 02/26/2024 08/27/2023, 08/, 07/06/2022, Additional history exists Depression Monitoring 05/26/2024 05/27/2023 Diabetic Foot Exam 09/07/2024 09/08/2023, 1 04/23/2021, 01/31/2019 GFR 09/27/2024 09/28/2023, 08/, 07/06/2022, Additional history exists Lipid Panel 07/07/2027 07/06/2022, 09/2021, 04/21/2019, Additional history exists DTaP,Tdap,and Td [...] Not on filedocumented as of this encounter Visit Diagnoses Diagnosis Preoperative general physical examination- Primary Other specified pre-operative examination Encounter for screening mammogram for malignant neoplasm of breast Other screening mammogram Type 2 diabetes mellitus with hyperglycemia, with long-term current use of insulin (HCC) Postmenopausal status, age-related Asymptomatic postmenopausal status (age-related) (natural) Type 2 diabetes mellitus with diabetic polyneuropathy, with long-term current use of insulin (HCC) Acquired hypothyroidism Unspecified hypothyroidism Dyslipidemia Other and unspecified hyperlipidemia ZAN on CPAP Obstructive sleep apnea (adult) (pediatric) Primary hypertension Unspecified essential hypertension Fibromyalgia Mylagia and myositis, unspecified Primary osteoarthritis of right knee Primary localized osteoarthrosis, lower leg documented in this encounter Care Teams Career Center Advisor Relationship Specialty Start Date End Date Pastor Castellano MD [address] [place] [address] PCP - General Family Medicine 06/06/18 documented as of this encounter"
--- OUTSIDE RECORDS SUMMARY | 2023-10-26 05:49 | External Medical Summary | Summary of Care ---
Author Name Unknown Organization [facility] Address [address] [facility] [place] [address] Phone [phone] Care Team Providers Care Media Production Operator Name Role Phone Pastor Castellano MD Primary Care Provider +1- [phone] Reason for Visit * Reason Onset Date Comments Advice 10/22/2023 Encounter Details Date Type Department Care Team (Late st Contact Info) Description 10/22/2023 Telephone [facility] [address] [place] [address] Pastor Castellano MD [address] [place] [address] Advice Allergies Active Allergy Reactions [...] per sliding scale Active Vitamin D, Ergocalciferol, 82820 units Capsule Take 1 Capsule by mouth [...] every night at bedtime . Active Nystatin 745770 UNIT/GM External Powder (Nystop)Indications :Yeast dermatitis Apply [...] (Pfizer) 11/04/2022 Pneumococcal Conjugate Vacci ne, 20-valent ([id number]) 07/06/2022 Pneumococcal Polysaccharide PPV23 (Pneumovax) 10/19/2013 Seasonal [...] encounter Miscellaneous Notes * Telephone Encounter - Karen Hampton LPN [...] on Wednesday10/26/23, but Dr Ac Medina from [facility] that's doing the surgery advised the [...] PM EST Office Visit [facility] [address] [place] [address] Pastor Castellano MD [address] [place] [address] Scheduled Procedures Name Priority Associated [...] filedocumented as of this encounter Care Teams Media Production Operator Relationship Specialty Start Date End Date Pastor Castellano MD [address] [place] [address] PCP - General Family Medicine 06/06/18 documented as of this encounter
--- OUTSIDE RECORDS SUMMARY | 2023-10-26 05:50 | External Medical Summary | Summary of Care ---
Author Name Unknown Organization [facility] Address [address] [facility] [place] [address] Phone [phone] Care Team Providers Care Cpc Name Role Phone Pastor Castellano MD Primary Care Provider +1- [phone] Reason for Visit * Reason Onset Date Comments Forms Request 10/21/2023 Encounter Details Date Type Department Care Team (Late st Contact Info) Description 10/21/2023 Telephone [facility] [address] [place] [address] Pastor Castellano MD [address] [place] [address] Forms Request Allergies Active Allergy Reactions Criticality Noted Date [...] per sliding scale Active Vitamin D, Ergocalciferol, 93972 units Capsule Take 1 Capsule by mouth [...] every night at bedtime . Active Nystatin 180156 UNIT/GM External Powder (Nystop)Indications :Yeast dermatitis Apply [...] mRNA, LNP-s, No Pre serve, 2-Dose Series ([employer]) 09/27/2020,09/05/2020 Covid-19, Mrna, Lnp-s, Pf, B ivalent, 30 Mcg, IM, 12 yrs and above (Pfizer) 11/04/2022 Pneumococcal Conjugate Vacci ne, 20-valent ([id number]) 07/06/2022 Pneumococcal Polysaccharide PPV23 (Pneumovax) 10/19/2013 Seasonal [...] encounter Miscellaneous Notes * Telephone Encounter - Renata Adams OSA - 10/22/2023 2:31 PM EDT Patient has been notified of the message. Patient has no further questions. * Telephone Encounter - Ora Valdez MED ASSIST - 10/22/2023 1:40 PM EDT Attempted to call patient, there was no answer, left voicemail. When patient returns call, ok for ZAN to relay message, please refer to below documentation. If needed, can transfer to dedicated nurse line. If the patient calls back, please remind them that the paperwork is completed and is at the front office spec for pickup. * Telephone Encounter - Ora Valdez MED ASSIST - 10/22/2023 10:45 AM EDT Attempted to call, was requested to call back later in the day. * Telephone Encounter - Ashley Santana OSA - 10/21/2023 3:15 PM EDT 10/21/23 Pt dropped off paperwork for a Parking Placard needing to be completed by provider. When completed, please call [phone]. Pt would like a second copy made of form for their file. Please include with form. Placed in provider's mail bin today. documented in this encounter Plan of Treatment Upcoming Encounters Date Type Department Care Team (Late st Contact Info) Description 04/04/2024 5:40 PM EST Office Visit [facility] [address] [place] [address] Pastor Castellano MD [address] [place] [address] Scheduled Procedures Name Priority Associated [...] 11/28/2020, Additional history exists HbA1c 02/26/2024 08/27/2023, 08/3 , 07/06/2022, Additional history exists Depression Monitoring 05/26/2024 05/27/2023 Diabetic Foot Exam 09/07/2024 09/08/2023, 1 04/23/2021, 01/31/2019 GFR 09/27/2024 09/28/2023, 08/3 , 07/06/2022, Additional history exists Lipid Panel 07/07/2027 07/06/2022, 11/0 09/2021, 04/21/2019, Additional history exists DTaP,Tdap,and Td [...] filedocumented as of this encounter Care Teams Cpc Relationship Specialty Start Date End Date Pastor Castellano MD [address] [place] [address] PCP - General Family Medicine 06/06/18 documented as of this encounter
--- OUTSIDE RECORDS SUMMARY | 2023-10-26 05:50 | External Medical Summary | Summary of Care ---
Author Name Unknown Organization [facility] Address [address] [facility] [place] [address] Phone [phone] Care Team Providers Care Cargo Handler Name Role Phone Pastor Castellano MD Primary Care Provider +1- [phone] Reason for Visit * Reason Onset Date Comments Advice 09/30/2023 advice Encounter Details Date Type Department Care Team (Late st Contact Info) Description 09/30/2023 Telephone [facility] [address] [place] [address] Pastor Castellano MD [address] [place] [address] Advice (advice) Allergies Active Allergy Reactions Criticality Noted Date Comments Duloxetine Hcl Edema Other 03/12/2017 Gabapentin Edema Other 03/12/2017 Lidocaine Fever High 03/12/2017 Pregabalin Edema Other 03/12/2017 Meloxicam Edema Other 01/12/2018 Procaine Fever 07/30/2017 documented as of this encounter (statuses as of 10/21/2023) Medications Medication Sig Dispensed Refills Start Date End Date Status NOVOLOG FLEXPEN 100 UNIT/ML SUBQ SOLN per sliding scale Active Vitamin D, Ergocalciferol, 30877 units Capsule Take 1 Capsule by mouth [...] every night at bedtime . Active Nystatin 707296 UNIT/GM External Powder (Nystop)Indications: Yeast dermatitis Apply [...] as of this encounter (statuses as of 10/21/2023) Active Problems Problem Noted Date Diagnosed Date [...] as of this encounter (statuses as of 10/21/2023) Resolved Problems Problem Noted Date Diagnosed Date Resolved Date Recurrent sinus infections 12/13/2017 0 05/11/2023 Type 2 diabetes mellitus with hyperglycemia 11/23/2017 05/11/2023 Bleeding ulcer 11/23/2017 documented as of this encounter (statuses as of 10/21/2023) Immunizations Name Administration Dates Next Due COVID-19 mRNA, LNP-s, No Pre serve, 2-Dose Series ([employer]) 09/27/2020,09/05/2020 Covid-19, Mrna, Lnp-s, Pf, B ivalent, 30 Mcg, IM, 12 yrs and above (Pfizer) 11/04/2022 Pneumococcal Conjugate Vacci ne, 20-valent ([id number]) 07/06/2022 Pneumococcal Polysaccharide PPV23 (Pneumovax) 10/19/2013 Seasonal [...] encounter Miscellaneous Notes * Telephone Encounter - Adriana Rodríguez OSA - 10/21/2023 1:39 PM EDT Maggie from [facility] calling to see if pt is clear for surgery Tue? Maggie can be reached at [phone]. * Telephone Encounter - Michelle Crouch OSA - 10/14/2023 3:12 PM EDT Maggie from [facility] is calling in to let the office know that they are faxingover her preop labs. The fax number was confirmed as [phone]. * Telephone Encounter - Gila Ramirez LPN [...] OSA - 09/30/2023 8:27 AM EDT Maggie Gavin calling asking if the Dr can sign [...] Description 04/04/2024 5:40 PM EST Office Visit [address] [place] [address] Pastor Castellano MD [address] [place] [id number] Scheduled Procedures Name Priority Associated Diagnoses Date/Ti [...] 11/28/2020, Additional history exists HbA1c 02/26/2024 08/27/2023, 08, 07/06/2022, Additional history exists Depression Monitoring 05/26/2024 05/27/2023 Diabetic Foot Exam 09/07/2024 09/08/2023, 1 04/23/2021, 01/31/2019 GFR 09/27/2024 09/28/2023, 08, 07/06/2022, Additional history exists Lipid Panel 07/07/2027 [...] filedocumented as of this encounter Care Teams Cargo Handler Relationship Specialty Start Date End Date Pastor Castellano MD [address] [place] [address] PCP - General Family Medicine 06/06/18 documented as of this encounter
--- OUTSIDE RECORDS SUMMARY | 2023-10-26 05:50 | External Medical Summary | Summary of Care ---
Author Name Unknown Organization [facility] Address [address] [facility] [place] [address] Phone [phone] Care Team Providers Care Pearl Hand Name Role Phone Pastor Castellano MD Primary Care Provider +1- [phone] Reason for Visit * Reason Onset Date Comments Advice 09/30/2023 advice Encounter Details Date Type Department Care Team (Late st Contact Info) Description 09/30/2023 Telephone [facility] [address] [place] [address] Pastor Castellano MD [address] [place] [address] Advice (advice) Allergies Active Allergy [...] per sliding scale Active Vitamin D, Ergocalciferol, 77168 units Capsule Take 1 Capsule by mouth [...] every night at bedtime . Active Nystatin 615004 UNIT/GM External Powder (Nystop)Indications: Yeast dermatitis Apply [...] mRNA, LNP-s, No Pre serve, 2-Dose Series ([employer]) 09/27/2020,09/05/2020 Covid-19, Mrna, Lnp-s, Pf, B ivalent, 30 Mcg, IM, 12 yrs and above (Pfizer) 11/04/2022 Pneumococcal Conjugate Vacci ne, 20-valent ([id number]) 07/06/2022 Pneumococcal Polysaccharide PPV23 (Pneumovax) 10/19/2013 Seasonal [...] encounter Miscellaneous Notes * Telephone Encounter - Angelina Tay OSA - 10/22/2023 12:06 PM EDT Reason for patient's call: Jie from [facility] calling to confirm if Dr. Frost received the pre-op and is signing off on the surgery for surgery on 10/26/[address]. [address] Frost is not able to clear her they are asking who is going to call patient to let her know she is not cleared. They need to hearby the end of day today. Please contact Jie at [phone]. Tried contacting [facility] no answer. * Telephone Encounter - Adriana Rodríguez OSA - 10/21/2023 1:39 PM EDT Maggie from [facility] calling to see if pt is clear for surgery Tue? Maggie can be reached at [phone]. * Telephone Encounter - Michelle Crouch OSA - 10/14/2023 3:12 PM EDT Maggie from [facility] is calling in to let the office know that they are faxingover her preop labs. The fax number was confirmed as [phone]. * Telephone Encounter - Gila Ramirez LPN [...] Description 04/04/2024 5:40 PM EST Office Visit [facility] [address] [place] [address] Pastor Castellano MD [address] [place] [address] Scheduled Procedures Name Priority Associated [...] filedocumented as of this encounter Care Teams Pearl Hand Relationship Specialty Start Date End Date Pastor Castellano MD [address] [place] [address] PCP - General Family Medicine 06/06/18 documented as of this encounter
--- OUTSIDE RECORDS SUMMARY | 2023-10-26 05:50 | External Medical Summary | Summary of Care ---
Author Name Unknown Organization [facility] Address [address] [facility] [place] [address] Phone [phone] Care Team Providers Care Engineering Systems Analyst Name Role Phone Pastor Castellano MD Primary Care Provider +1- [phone] Encounter Details Date Type Department Care Team (Late st Contact Info) Description 09/28/2023 Result Scan Unspecified Department <No scans attached> Allergies Active Allergy Reactions Criticality Noted Date Comments Duloxetine Hcl Edema Other 03/12/2017 Gabapentin Edema Other 03/12/2017 Lidocaine Fever High 03/12/2017 Pregabalin Edema Other 03/12/2017 Meloxicam Edema Other 01/12/2018 Procaine Fever 07/30/2017 documented as of this encounter (statuses as of 10/15/2023) Medications Medication Sig Dispensed Refills Start Date End Date Status NOVOLOG FLEXPEN 100 UNIT/ML SUBQ SOLN per sliding scale Active Vitamin D, Ergocalciferol, 63210 units Capsule Take 1 Capsule by mouth [...] every night at bedtime . Active Nystatin 402136 UNIT/GM External Powder (Nystop)Indications: Yeast dermatitis Apply [...] as of this encounter (statuses as of 10/15/2023) Active Problems Problem Noted Date Diagnosed Date [...] as of this encounter (statuses as of 10/15/2023) Resolved Problems Problem Noted Date Diagnosed Date Resolved Date Recurrent sinus infections 12/13/2017 0 05/11/2023 Type 2 diabetes mellitus with hyperglycemia 11/23/2017 05/11/2023 Bleeding ulcer 11/23/2017 documented as of this encounter (statuses as of 10/15/2023) Immunizations Name Administration Dates Next Due COVID-19 mRNA, LNP-s, No Pre serve, 2-Dose Series ([employer]) 09/27/2020,09/05/2020 Covid-19, Mrna, Lnp-s, Pf, B ivalent, 30 Mcg, IM, 12 yrs and above ([employer]) 11/04/2022 Pneumococcal Conjugate Vacci ne, 20-valent ([id number]) 07/06/2022 Pneumococcal Polysaccharide PPV23 (Pneumovax) 10/19/2013 Seasonal [...] on file documented as of this encounter Plan of Treatment Upcoming Encounters Date Type Department Care Team (Late st Contact Info) Description 04/04/2024 5:40 PM EST Office Visit [facility] [address] [place] [address] Pastor Castellano MD [address] [place], [place] [phone] Scheduled Procedures Name Priority Associated Diagnoses Date/Ti [...] Not on filedocumented as of this encounter Procedures Procedure Name Priority Date/Time Associated Diagnosis Comments EKG SCANNED RESULT 09/28/2023 documented in this encounter Results * EKG SCANNED RESULT (09/28/2023) 09/28/2023 No Physician Data Unknown EKG documented in this encounter Care Teams Engineering Systems Analyst Relationship Specialty Start Date End Date Pastor Castellano MD [address] [place] [place] [id number] PCP - General Family Medicine 06/06/18 documented as of this encounter
--- OUTSIDE RECORDS SUMMARY | 2023-10-26 05:50 | External Medical Summary | Summary of Care ---
Author Name Unknown Organization [facility] Address [address] [facility] [place] [address] Phone [phone] Care Team Providers Care Advertising Inserter Name Role Phone Pastor Castellano MD Primary Care Provider +1- [phone] Reason for Visit * Reason Onset Date Comments Med Request 09/07/2023 Advice 09/07/2023 Encounter Details Date Type Department Care Team (Late st Contact Info) Description 09/07/2023 Refill [facility] [address] [place] [address] Pastor Castellano MD [address] [place] [address] Chronic bilateral low back pain without sciatica Allergies Active Allergy Reactions Criticality Noted Date Comments Duloxetine Hcl Edema Other 03/12/2017 Gabapentin Edema Other 03/12/2017 Lidocaine Fever High 03/12/2017 Pregabalin Edema Other 03/12/2017 Meloxicam Edema Other 01/12/2018 Procaine Fever 07/30/2017 documented as of this encounter (statuses as of 10/14/2023) Medications Medication Sig Dispensed Refills Start Date End Date Status NOVOLOG FLEXPEN 100 UNIT/ML SUBQ SOLN per sliding scale Active Vitamin D, Ergocalciferol, 99394 units Capsule Take 1 Capsule by mouth [...] every night at bedtime . Active Nystatin 922871 UNIT/GM External Powder (Nystop)Indications: Yeast dermatitis Apply [...] as of this encounter (statuses as of 10/14/2023) Active Problems Problem Noted Date Diagnosed Date [...] as of this encounter (statuses as of 10/14/2023) Resolved Problems Problem Noted Date Diagnosed Date Resolved Date Recurrent sinus infections 12/13/2017 0 05/11/2023 Type 2 diabetes mellitus with hyperglycemia 11/23/2017 05/11/2023 Bleeding ulcer 11/23/2017 documented as of this encounter (statuses as of 10/14/2023) Immunizations Name Administration Dates Next Due COVID-19 mRNA, LNP-s, No Pre serve, 2-Dose Series (Pfizer) 09/27/2020,09/05/2020 Covid-19, Mrna, Lnp-s, Pf, B ivalent, 30 Mcg, IM, 12 yrs and above (Pfizer) 11/04/2022 Pneumococcal Conjugate Vacci ne, 20-valent ([id number]) 07/06/2022 Pneumococcal Polysaccharide PPV23 (Pneumovax) 10/19/2013 Seasonal [...] No 05/27/2023 Does the household have a [facility] source of income? (Household - for ages [...] encounter Miscellaneous Notes * Telephone Encounter - Lorenzo Ramirez MED ASSIST - 10/14/2023 1:42 PM EDT Patient would like a handicap placer, and it needs signed. Patient was notified about her oxy * Telephone Encounter - Pastor Castellano MD - 10/06/2023 2:59 PM EDT Can notify that is fine. * Telephone Encounter - Ada Caldwell OSA - 10/06/2023 9:00 AM EDT Ambar from [facility] calling in to check on status of medication being changed to 6 tablets for surgery. * Telephone Encounter - Ashley Santana OSA - 09/07/2023 6:09 PM EDT 09/07/23 Upon checkout; pt asked if it would be possible to increase her Oxy back up to 6 day for a month after her surgery? Please call and advise pt on the increase of her meds. documented in this encounter Plan of Treatment Upcoming Encounters Date Type Department Care Team (Late st Contact Info) Description 04/04/2024 5:40 PM EST Office Visit [facility] [address] [place] [address] Pastor Castellano MD [address] [place] [address] Scheduled Procedures Name Priority Associated [...] Diabetic Eye Exam 11/05/2023 11/04/2022, , 09/06/2015 GFR 11/05/2023 11/04/2022, 05/0 03/2022, 01/12/2022, Additional history exists TSH 11/05/2023 11/04/2022, 09/2021, 12/10/2017, Additional history exists Influenza Vaccine (FLU shot) (#1) 2023 11/04/2022, 01/06/2022, 11/28/2020, Additional history exists HbA1c 02/26/2024 08/27/2023, 08/, 07/06/2022, Additional history exists Depression Monitoring 05/26/2024 05/27/2023 Diabetic Foot Exam 09/07/2024 09/08/2023, 1 04/23/2021, 01/31/2019 Lipid Panel 07/07/2027 07/06/2022, 09/2021, 04/21/2019, Additional [...] as of this encounter Visit Diagnoses Diagnosis Chronic bilateral low back pain without sciatica documented in this encounter Care Teams Advertising Inserter Relationship Specialty Start Date End Date Pastor Castellano MD [address] [place] [address] PCP - General Family Medicine 06/06/18 documented as of this encounter
--- OUTSIDE RECORDS SUMMARY | 2023-10-26 05:50 | External Medical Summary | Summary of Care ---
Author Name Unknown Organization [facility] Address [address] [facility] [place] [address] Phone [phone] Care Team Providers Care Hematology Technologist Name Role Phone Pastor Castellano MD Primary Care Provider +1- [phone] Encounter Details Date Type Department Care Team (Late st Contact Info) Description 10/15/2023 Orders Only [facility] [address] [place] [facility] [place] [address] Pastor Castellano MD [address] [place] [address] Allergies Active Allergy Reactions Criticality Noted Date [...] per sliding scale Active Vitamin D, Ergocalciferol, 66003 units Capsule Take 1 Capsule by mouth [...] every night at bedtime . Active Nystatin 049300 UNIT/GM External Powder (Nystop)Indications :Yeast dermatitis Apply [...] (Pfizer) 11/04/2022 Pneumococcal Conjugate Vacci ne, 20-valent ([id number]) 07/06/2022 Pneumococcal Polysaccharide PPV23 (Pneumovax) 10/19/2013 Seasonal [...] Description 04/04/2024 5:40 PM EST Office Visit [facility] [address] [facility] [place] [id number] Pastor [facility] [address] [facility] [place] [phone] Scheduled Procedures Name Priority Associated Diagnoses Date/Ti [...] Procedure Name Priority Date/Time Associated Diagnosis Comments CHEMISTRY-OUTSIDE Routine 09/28/2023 documented in this encounter Results * (ABNORMAL) CHEMISTRY-OUTSIDE (09/28/2023) Not all results display below - see scan for full detail OUTSIDE LAB (SEE SCANNED REPORT) Comment:SCAN INCLUDES - BMP, PT INR, PTT, CBCD, ANTIBODY SCREEN CREATININE-OUTSID E LAB 1.22(A) 0.6 - 1.2 MG/DL OUTSIDE LAB (SEE SCANNED REPORT) EGFR-OUTSIDE LAB 46.5 ML/MIN OUT SIDE LAB (SEE SCANNED REPORT) POTASSIUM-OUTSIDE LAB 4.5 3.5 - 5.1 MMOL/L OUTSIDE LAB (SEE SCANNED REPORT) GLUCOSE-OUTSIDE LAB 210(A) 70 - 99 MG/DL OUTSIDE LAB (SEE SCANNED REPORT) HOURS FASTING OUTSID E LAB (SEE SCANNED REPORT) TRIGLYCERIDES-OUT SIDE LAB OUTSIDE LAB (SEE SCANNED REPORT) CHOLESTEROL-OUTSI DE LAB OUTSIDE LAB (SEE SCANNED REPORT) HDL-OUTSIDE LAB OUTS ROC[facility]O LAB (SEE SCANNED REPORT) CHOL/HDL RATIO-OUTSIDE LAB OUTSIDE LA B (SEE SCANNED REPORT) LDL (CALCULATED)-OUTS ROC[facility]O LAB OUTSIDE LAB (SEE SCANNED REPORT) LDL (DIRECT MEASURE)-OUTSIDE LAB OUTSIDE LAB (SEE SCANNED REPORT) HEMOGLOBIN, M6I-[id number] LAB OUTSIDE LAB (SEE SCANNED REPORT) PHOSPHORUS-OUTSID E LAB OUTSIDE LAB (SEE SCANNED REPORT) PTH-OUTSIDE LAB OUTS ROCÍO LAB (SEE SCANNED REPORT) MICROALBUMIN RATIO-OUTSIDE LAB OUTSIDE LA B (SEE SCANNED REPORT) PROTEIN, UA-OUTSIDE LAB OUTSIDE LAB (SEE SCANNED REPORT) HGB 13.2 12.0 - 16.0 G/DL OUTSIDE LAB (SEE SCANNED REPORT) 09/28/2023 Ac Medina MD LABORATORY OUTSIDE LAB (SEE SCANNED REPORT) documented in this encounter Care Teams Hematology Technologist Relationship Specialty Start Date End Date Pastor Castellano MD [address] [place] [address] PCP - General Family Medicine 06/06/18 documented as of this encounter
--- OUTSIDE RECORDS SUMMARY | 2023-10-26 05:51 | External Medical Summary | Continuity of Care Document ---
Author Name Unknown Organization [facility] [id number] Address [address] [place] [id number] Care Team Providers Care Virtual Reality Specialist Name Role Phone Pastor Castellano Primary Care Physician [phone] [id number] Date[facility]s): 09/28/23 - 09/28/23 [facility] [address] [id number] [facility] [address] [place] [address] Encounter Diagnosis Right knee pain(Discharge Diagnosis) - 09/28/23 Discharge Disposition: Home or Self Care Attending Physician: MD Carol, Ac A Referring Physician: MD Carol, Ac A Allergies, Adverse Reactions, Alerts Substance Criticality Severity Reaction Reaction Severity Status gabapentin swelling Active Novocain Unable to assess criticality Mild Fever Active meloxicam swelling Active Lyrica swelling Active Cymbalta swelling Active Medications acetaminophen-oxyCODONE 325 mg-5 mg oral tablet Start: 05/07/22 8:00:00 AM EST, Refills: 0 Start Date: 05/07/22 Status: Ordered All Day Allergy 10 mg oral tablet Start: 05/07/22 8:01:00 AM EST, 1 tab, PO, Daily Start Date: 05/07/22 Status: Ordered amphetamine-dextroamphetamine 20 mg oral tablet Start: 05/07/22 8:00:00 AM EST, 1 tab, PO, qAM, Refills: 0 Start Date: 05/07/22 Status: Ordered citalopram 20 mg oral tablet Start: 05/07/22 8:01:00 AM EST, 1 tab, PO, Daily Start Date: 05/07/22 Status: Ordered DEXCOM G6 BONE COOKING OPERATOR DEVICE Start: 05/07/22 8:00:00 AM EST, DEXCOM G6 BONE COOKING OPERATOR DEVICE Start Date: 05/07/22 Status: Ordered ergocalciferol 1.25 mg (50,000 intl units) oral capsule Start: 05/07/22 8:00:00 AM EST, 1 cap, PO, q7days Start Date: 05/07/22 Status: Ordered Euflexxa 10 mg/mL intra-articular solution Start: 06/16/23 4:16:00 PM EDT, 20 mg =, intra-articular, q7days, Disp# 12 mL, Refills: 0, 6 syringes for B/L knees. Please ship to physician's office: [address] [place] [address], Note to Pharmacy: B/L KNEE DJD M17.0, Pharmacy: [facility] Start Date: 06/16/23 Stop Date: 07/07/23 Status: Ordered ezetimibe 10 mg oral tablet Start: 05/07/22 8:00:00 AM EST, 1 tab, PO, Daily Start Date: 05/07/22 Status: Ordered Flexeril Start: 05/07/22 8:01:00 AM EST, prn Start Date: 05/07/22 Status: Ordered Jardiance 10 mg oral tablet Start: 05/07/22 8:00:00 AM EST, PO, Daily, Disp# 30 tab, 25 mg Start Date: 05/07/22 Status: Ordered Lantus Solostar Pen 100 units/mL subcutaneous solution Start: 05/07/22 8:00:00 AM EST, 95 units, subQ, Daily, 80 units Start Date: 05/07/22 Status: Ordered levothyroxine 25 mcg (0.025 mg) oral tablet Start: 05/07/22 7:59:00 AM EST, PO, Daily, 50 mcg Start Date: 05/07/22 Status: Ordered lisinopril 5 mg oral tablet Start: 05/07/22 8:00:00 AM EST, 1 tab, PO, Daily Start Date: 05/07/22 Status: Ordered Medical Marijuana Start: 06/16/23 2:44:00 PM EDT, vape occ. gummy Start Date: 06/16/23 Status: Ordered Nystop 100,000 units/g topical powder Start: 05/07/22 8:01:00 AM EST, prn Start Date: 05/07/22 Status: Ordered pantoprazole 40 mg oral delayed release tablet Start: 05/07/22 8:00:00 AM EST, 1 tab, PO, Daily Start Date: 05/07/22 Status: Ordered rosuvastatin 40 mg oral tablet Start: 05/07/22 8:00:00 AM EST, 1 tab, PO, Daily Start Date: 05/07/22 Status: Ordered Mental Status 09/28/23 Barriers to Learning one year None evide nt Mandatory Health Literacy Documentation Yes Health Literacy Communication Barriers N ever Primary Language Greek Problem List Condition Confirmation Course Effective Dates Status Health St atus Informant Thyroid disease Confirmed Active Right knee pain Confirmed Active Left knee pain Confirmed Active Diagnosis Diagnosis Type Effective Dates Health Status Cl inical Service Informant Right knee pain Discharge Diagnosis 09/28/23 Procedures Procedure Date Related Diagnosis Body Site Status APPENDECTOMY Completed Breast reduction Complete d Vital Signs Most recent to oldest [Reference Range]: 1 Height 159 cm (09/28/23 9:49 AM) Patient Weight 85 kg (09/28/23 9:49 AM) Body Mass Index 33.62 kg/m2 (09/28/23 9:49 AM) Temperature [36.5-37.9 DegC] 36.4 DegC *LOW* (09/28/23 9:49 AM) Heart Rate 110 bpm (09/28/23 9:49 AM) Blood Pressure 150/70mmHg (09/28/23 9:49 AM) Cuff Pulse Pressure 80 mmHg (09/28/23 9:49 AM) Social History Social History Type Response Smoking Status Never smoked cigaret kellee Sex Female Sex Representation Female (finding) Pre-OP H & P * GUZMAN Espino Jennifer R: PERFORM, MODIFY, MODIFY Event Display: Pre-OP H & P Authored Date: [id number] Name:JUDY RICHARDSON Patient Number:[id number] :[id number] Date of Service:09/28/2023 Chief Complaint discuss surgery for R knee History of Present Illness Aviva Ramires presents today for A preoperative history and physical. She is scheduled for right total knee arthroplasty with Dr. Medina on October 26, 2023. She complains of bilateral knee pain worse with steps. She has pain on a daily basis. She has pain that is increased with activity. She has pain that wakes her up at night. She does not use an assistive device such as a walker or cane but she occasionally uses a walking stick. She has had previous injections with her last injection around 38 years of age which did not provide any significant improvement. She has been on Percocet 5 over 325 mg 5 pills/day by her family physician Dr. Eulogio romero. She has been on pain medication since 2012 for management of her Lyme's disease, fibromyalgia, arthritis and chronic pain. Today she rates her pain a 6 out of 10. Due to her failure of conservative treatment and persistent symptoms she wishes to proceed with an elective right total knee arthroplasty. Review of Systems Denies any recent cough, cold, fevers, chills or flulike symptoms. She denies any lightheadedness, dizziness, syncopal episodes, headaches, migraines or seizures. Denies any bleeding or clotting disorders or history of DVT or pulmonary embolism. Denies any recent hospitalizations. Denies any history of metal sensitivity, latex allergy or MRSA. Denies any shortness of breath or chest pain. Denies abdominal pain, heartburn, indigestion, nausea, vomiting, diarrhea or constipation. Denies any urinary tract infections. Denies any hearing or vision changes. Denies any dental problems. Physical Exam Vitals & Measurements T:36.4C HR:110(Monitored) BP:150/70 SpO2:95% HT:159cm WT:85.000kg(Dosing) WT:85kg BMI:33.62 BMI:33.62 kg/m2 Vitals:Last Updated 09/28/23 09:49 Date Temp BP Location Pulse RR SpO2 Pain 09/28/23 36.4 150/70 110 95 09/28/23 6 06/16/23 7 Height and Weight:Last Updated 09/28/23 09:49 Date BMI Wt(kg) Wt(lb) Method Ht(cm) (ft-in) Method 09/28/23 33.62 85 187 Standing Scale 159 5-2 05/07/22 32.42 83 183 Standing Scale 160 5-3 General:Well-dressed, well-nourished. Normal mood and affect. Alert and oriented x3. HEENT:Head: Atraumatic, normocephalic. Eyes: Extraocular movements intact, pupils equal round and reactive to light, sclera normal. Ears: Ears grossly normal, TMs are clear normal light reflex.Nose: Nares are patent bilaterally. Throat: Oropharynx clear mucous membranes moist fair dentition with 6 lower teeth, mild gum recession. No erythema, or tender to palpation. Upper dentures notes. uvula midline. Neck:Supple, no lymphadenopathy, nontender palpation, full range of motion. Cardiac:Regular rate and rhythm, normal S1, S2. No murmurs, rubs or gallops appreciated. Lungs:Clear to auscultation bilaterally. No adventitious sounds. No accessory muscle use. Abdomen:Soft, nontender, nondistended, normal bowel sounds heard in all 4 quadrants. Extremities:Focusing on the patient's bilateral lower extremities: 2+ DP pulse Sensation to light touch is intact Motor to the gastroc soleus, tibialis anterior, and EHL is 5/5. Able to perform straight leg raise. + medial joint line tenderness on the right - joint line tenderness on the left - Fabian's Bilateral knee Ligamentous examination exhibits: Stable Francis 0 mm anterior translation and firm endpoint Posterior drawer stable Varus stress at 0 and 30 stable Valgus stress at 0 and 30 stable - Effusion Left knee Range of motion 5- 120 Right knee Range of motion: 0 to near 120 Diagnostic Results I reviewed an OA series including bilateral hips to ankles, bilateral AP standing, Bilateral 45 degree flexion PA views, and bilateral knee lateral and sunrise views which shows joint space narrowingon the right lateral compartment bone on bone, sclerosis, squaring of the tibia, and marginal osteophytes. On the left there is slight medial joint space narrowing and patellofemoral joint space narrowing with marginal osteophytes on both. On the right there is a large posterior osteophyte. On the left there is a posterior and anterior osteophytes. Patient has neutral alignment on left and 5 valgus alignment on the right. Her A1C as of 08/26 was 7.5. Assessment/Plan 1.Right knee pain Patient is scheduled for an elective right total knee arthroplasty with Dr. Medina on October 26, 2023. Risks and complications of the procedure were explained to the patient and include but are not limited to infection, pain, bleeding, scarring, nerve or blood vessel damage, wound problems, weakness, stiffness, incomplete relief of symptoms, hardware failure, loosening, wear, fracture, blood clots, embolisms, heart attack, stroke and . All questions were answered and informed consent was obtained today by Dr. Medina. Later today she will preadmission testing which she will obtain apreoperative CBC, BMP, PT, PTT, type and screen, EKG and chest x-ray. Her most recent hemoglobin A1c was 7.5 on August 27, 2023.She will have preoperative medical clearance by her family physician. We will arrange for postoperative home health and physical therapy. She would like to attend outpatient physical therapy here in our office. We will use aspirin for DVT prophylaxis. She was given a prescription for a rolling walker as well as a cane for use after surgery. She does have a shower chair and a raised toilet seat at home. She was instructed on the usage of the CHG clothspreoperatively.Preadmission testing we will discuss what she should take the morning of surgery medication rodrigues. All questions were answered today. She knows to call with any further problems, questions or concerns. This chart was completed utilizing Antidot voice recognition software. Grammatical errors, random word insertions, pronoun errors, and in complete sentences are an occasional consequence of the system. Any questions or concerns about the content, text, or information contained within the body of this dictation should be addressed directly to the provider for clarification. Problem List/Past Medical History Ongoing Left knee pain Right knee pain Thyroid disease Diabetes-insulin treatment Fibromyalgia Anemia history History of Lyme disease Anxiety Depression Sleep apnea with use of a CPAP High cholesterol Osteoarthritis of spine TMJ Acid reflux Obesity Procedure/Surgical History Breast reductionAPPENDECTOMY Tubal ligation mouth surgery Medications Home acetaminophen-oxyCODONE(acetaminophen-oxyCODONE 325 mg-5 mg oral tablet) amphetamine-dextroamphetamine(amphetamine-dextroamphetamine 20 mg oral tablet), 20 mg= 1 tab, PO, qAM cannabis(Medical Marijuana) cetirizine(All Day Allergy 10 mg oral tablet), 10 mg= 1 tab, PO, Daily citalopram(citalopram 20 mg oral tablet), 20 mg= 1 tab, PO, Daily cyclobenzaprine(Flexeril) empagliflozin(Jardiance 10 mg oral tablet), PO, Daily ergocalciferol(ergocalciferol 1.25 mg (50,000 intl units) oral capsule), 36489 Int_Unit= 1 cap, PO,q7days ezetimibe(ezetimibe 10 mg oral tablet), 10 mg= 1 tab, PO, Daily insulin glargine(Lantus Solostar Pen 100 units/mL subcutaneous solution), 95 units, subQ, Daily levothyroxine(levothyroxine 25 mcg (0.025 mg) oral tablet), PO, Daily lisinopril(lisinopril 5 mg oral tablet), 5 mg= 1 tab, PO, Daily nystatin topical(Nystop 100,000 units/g topical powder) pantoprazole(pantoprazole 40 mg oral delayed release tablet), 40 mg= 1 tab, PO, Daily rosuvastatin(rosuvastatin 40 mg oral tablet), 40 mg= 1 tab, PO, Daily sodium hyaluronate(Euflexxa 10 mg/mL intra-articular solution), 20 mg, intra- articular, q7days unlisted medication(DEXCOM G6 BONE COOKING OPERATOR DEVICE) Allergies Novocain (Mild)Fever Cymbaltaswelling Lyricaswelling gabapentinswelling meloxicamswelling Social History Smoking Status Never smoked cigarettes Denies any tobacco use. Denies any alcohol use. She does use prescribed medical marijuana. Family History Diabetes type: Unknown. Heart disease: Unknown. Electronic Signature on File Electronically Reviewed/Signed by: Ora Espino PA-C Author Signature Dt/Tm:09/28/2023 04:41PM Division of Sports Medicine Electronically Reviewed/Signed by: Ora Espino PA-C Cosigner Signature Dt/Tm: 09/29/2023 10:34 AM Division of Sports Medicine Electronically Reviewed/Signed by: Ac Medina MD Cosigner Signature Dt/Tm: 09/29/2023 04:40 PM [facility] [employer] Teacher Department of Orthopaedics and Rehabilitation [facility] [address], [place] [address] [facility] Ortho Outpt Note * MD Carol, Ac A: MODIFY MD Medina Dov A: MODIFY, MODIFY, MODIFY Event Display: Ortho Outpt Note Authored Date: [id number] Name:JUDY RICHARDSON Patient Number:[id number] :[id number] Date of Service:09/28/2023 CHIEF COMPLAINT: Right knee pain and surgical consent HPI: Aviva Ramires presents today forevaluation of right knee pain and surgical consent for right TKA. She complains of bilateral knee pain worse with steps.She is scheduled for right TKA surgery on 10/26/2023. Her last knee injections were around 38 y/o which did notprovide significant improvement. She is currently taking 5 tablets of oxycodone per day as prescribed by her PCP, Dr. Castellano.She has been on pain medication since 2011 formanagement of Lyme'sdisease, fibromyalgia, arthritis, and chronic pain. She is considering left TKA for Spring 2024. Today she rates her pain 6/10. Her A1C as of 08/26 was 7.5. PHYSICAL EXAM: Focusing on the patient'sbilaterallower extremities: 2+ DP pulse Sensation to light touch is intact Motor to the gastroc soleus, tibialis anterior, and EHL is 5/5. Able to perform straight leg raise. +medialjoint line tenderness on the right - joint line tenderness on the left -Fabian's Bilateral knee Ligamentous examination exhibits: Stable Rfancis 0 mm anterior translation and firm endpoint Posterior drawer stable Varus stress at 0 and 30 stable Valgus stress at 0 and 30 stable -Effusion Left knee Range of motion 5-120 Right knee Range of motion: 0to near 120 RADIOGRAPHY: I reviewed an OA series including bilateral hips to ankles, bilateral AP standing, Bilateral 45 degree flexion PA views, andbilateralknee lateral and sunrise views which showsjoint space narrowing on the right lateral compartment bone on bone, sclerosis, squaring of the tibia, and marginal ost eophytes. On the left there is slight medial joint space narrowing and patellofemoral jointspace narrowing withmarginal osteophytes on both. On the right there is a large posterior osteophyte. Onthe left there is a posterior and anterior osteophytes. Patient hasneutralalignment on left and 5valgusalignment on the right. IMPRESSION: Right knee pain secondarily tomoderate to severe degenerate changes of right knee Chronic GOAL: Decrease pain PLAN: After a lengthy discussion with the patient today regarding my above clinical findings, as well as reviewing their imaging with them, their treatment options of conservative management versus surgical intervention were discussed. - The risk and benefits of each were discussed. - The risks of surgery included but not limited to: Infection, bleeding, nerve damage, continued pain, progression of arthritis, stiffness, failure of the repair, failure of the hardware, and deep vein thrombosis. They would like to proceed with surgery and informed consent was signed for right total knee arthroplasty. - Discussed pain medication following surgery. Given her history pain management following surgery may be challenging. Goal to return to her baseline dosage 4-6 weeks following surgery. Will need to coordinate with Dr. Castellano for [facility] pain management. - They will have ahistory and physical examination performed after evaluation today - Follow-up as scheduled for surgery on 10/25 and post-operative appointments The patient understood all my instructions and explanation: all their questions were satisfactorilyaddressed. ATTESTATION: I, Estela Sanz, scribing forand in the presence of, Ac Medina, on this date,09/28/2023 09:47:40. I, Dr. Medina, saw and examined the patient with Estela Sanz acting as my scribe. I reviewed the note and agree with the documented findings and the plan of care I developed. Electronic Signature on File CC: Pastor Castellano MD [address] [place] [id number] * Electronically Reviewed/Signed by: Estela Sanz Author Signature Dt/Tm:09/28/2023 10:24 AM Electronically Reviewed/Signed by: Estela Sanz Cosigner Signature Dt/Tm: 09/28/2023 10:25 AM Electronically Reviewed/Signed by: Ac Medina MD Cosigner Signature Dt/Tm: 09/28/2023 11:01 AM [facility] [employer] Teacher Department of Orthopaedics and Rehabilitation [facility] [address], [place] [address] KR Patient Care team information Care Team Personnel Name: MD Castellano Brett R Position: Referring DIRECT Member Role: Primary Care Provider Address: [address] [place] [id number] [place]
--- OUTSIDE RECORDS SUMMARY | 2023-10-26 05:51 | External Medical Summary | Summary of Care ---
Author Name Unknown Organization [facility] Address [address] [facility] [place] [address] Phone [phone] Care Team Providers Care Caddy/Caddie Supervisor Name Role Phone Pastor Castellano MD Primary Care Provider [phone] Encounter Details Date Type Department Care Team (Late st Contact Info) Description 09/28/2023 Population Health External Data Unspecified Department Allergies Active Allergy Reactions Criticality Noted Date Comments Duloxetine Hcl Edema Other 03/12/2017 Gabapentin Edema Other 03/12/2017 Lidocaine Fever High 03/12/2017 Pregabalin Edema Other 03/12/2017 Meloxicam Edema Other 01/12/2018 Procaine Fever 07/30/2017 documented as of this encounter (statuses as of 10/01/2023) Medications Medication Sig Dispensed Refills Start Date End Date Status NOVOLOG FLEXPEN 100 UNIT/ML SUBQ SOLN per sliding scale Active Vitamin D, Ergocalciferol, 54868 units Capsule Take 1 Capsule by mouth [...] every night at bedtime . Active Nystatin 554843 UNIT/GM External Powder (Nystop)Indications: Yeast dermatitis Apply [...] as of this encounter (statuses as of 10/01/2023) Active Problems Problem Noted Date Diagnosed Date [...] as of this encounter (statuses as of 10/01/2023) Resolved Problems Problem Noted Date Diagnosed Date Resolved Date Recurrent sinus infections 12/13/2017 0 05/11/2023 Type 2 diabetes mellitus with hyperglycemia 11/23/2017 05/11/2023 Bleeding ulcer 11/23/2017 documented as of this encounter (statuses as of 10/01/2023) Immunizations Name Administration Dates Next Due COVID-19 mRNA, LNP-s, No Pre serve, 2-Dose Series ([email or web address]) 09/27/2020,09/05/2020 Covid-19, Mrna, Lnp-s, Pf, B ivalent, 30 Mcg, IM, 12 yrs and above ([email or web address]) 11/04/2022 Pneumococcal Conjugate Vacci ne, 20-valent ([id number]) 07/06/2022 Pneumococcal Polysaccharide PPV23 (Pneumovax) 10/19/2013 Seasonal [...] Description 04/04/2024 5:40 PM EST Office Visit [facility] [address] [place] [address] Pastor Castellano MD [address] [place] [address] Scheduled Procedures Name Priority Associated Diagnoses Date/Ti [...] 11/05/2023 11/04/2022, , 09/06/2015 GFR 11/05/2023 11/04/2022, 03/2022, 01/12/2022, Additional history exists TSH 11/05/2023 11/04/2022, 0 09/2021, 12/10/2017, Additional [...] filedocumented as of this encounter Care Teams Caddy/Caddie Supervisor Relationship Specialty Start Date End Date Pastor Castellano MD [address] [place] [address] PCP - General Family Medicine 06/06/18 documented as of this encounter
--- OUTSIDE RECORDS SUMMARY | 2023-10-26 05:51 | External Medical Summary | Summary of Care ---
Author Name Unknown Organization [facility] Address [address] [facility] [place] [address] Phone [phone] Care Team Providers Care Breastfeeding Peer Counselor Name Role Phone Pastor Castellano MD Primary Care Provider [phone]- [phone] Reason for Visit * Reason Onset Date Comments Med Request 09/07/2023 Advice 09/07/2023 Encounter Details Date Type Department Care Team (Late st Contact Info) Description 09/07/2023 Refill [facility] [address] [place] [address] Pastor Castellano MD [address] [place] [address] Chronic bilateral low back pain without sciatica Allergies Active Allergy Reactions Criticality Noted Date Comments Duloxetine Hcl Edema Other 03/12/2017 Gabapentin Edema Other 03/12/2017 Lidocaine Fever High 03/12/2017 Pregabalin Edema Other 03/12/2017 Meloxicam Edema Other 01/12/2018 Procaine Fever 07/30/2017 documented as of this encounter (statuses as of 10/11/2023) Medications Medication Sig Dispensed Refills Start Date End Date Status NOVOLOG FLEXPEN 100 UNIT/ML SUBQ SOLN per sliding scale Active Vitamin D, Ergocalciferol, 31422 units Capsule Take 1 Capsule by mouth [...] every night at bedtime . Active Nystatin 495018 UNIT/GM External Powder (Nystop)Indications: Yeast dermatitis Apply [...] as of this encounter (statuses as of 10/11/2023) Active Problems Problem Noted Date Diagnosed Date [...] as of this encounter (statuses as of 10/11/2023) Resolved Problems Problem Noted Date Diagnosed Date Resolved Date Recurrent sinus infections 12/13/2017 0 05/11/2023 Type 2 diabetes mellitus with hyperglycemia 11/23/2017 05/11/2023 Bleeding ulcer 11/23/2017 documented as of this encounter (statuses as of 10/11/2023) Immunizations Name Administration Dates Next Due COVID-19 mRNA, LNP-s, No Pre serve, 2-Dose Series ([employer]) 09/27/2020,09/05/2020 Covid-19, Mrna, Lnp-s, Pf, B ivalent, 30 Mcg, IM, 12 yrs and above (Pfizer) 11/04/2022 Pneumococcal Conjugate Vacci ne, 20-valent ([id number]) 07/06/2022 Pneumococcal Polysaccharide PPV23 (Pneumovax) 10/19/2013 Seasonal [...] No 05/27/2023 Does the household have a [facility] source of income? (Household - for ages [...] - 10/06/2023 9:00 AM EDT Ambar from [facility] calling in to check on status [...] Description 04/04/2024 5:40 PM EST Office Visit [facility] [address] [place] [address] Pastor Castellano MD [address] [place] [address] Scheduled Procedures Name Priority Associated [...] 01/12/2022, Additional history exists TSH 11/05/2023 11/04/2022, 1109/2021, 12/10/2017, Additional history exists Influenza Vaccine (FLU shot) (#1) 2023 11/04/2022, 01/06/2022, 11/28/2020, Additional history exists HbA1c 02/26/2024 08/27/2023, 08/3 , 07/06/2022, Additional history exists Depression Monitoring 05/26/2024 05/27/2023 Diabetic Foot Exam 09/07/2024 09/08/2023, 1 04/23/2021, 01/31/2019 Lipid Panel 07/07/2027 07/06/2022, 11/0 09/2021, 04/21/2019, [...] sciatica documented in this encounter Care Teams Breastfeeding Peer Counselor Relationship Specialty Start Date End Date Pastor Castellano MD [address] [place] [address] PCP - General Family Medicine 06/06/18 documented as of this encounter
--- OUTSIDE RECORDS SUMMARY | 2023-10-26 05:51 | External Medical Summary | Summary of Care ---
Author Name Unknown Organization [facility] Address [address] [facility] [place] [address] Phone [phone] Care Team Providers Care Circular Saw Edge Fuser Name Role Phone Pastor Castellano MD Primary Care Provider +1- [phone] Reason for Visit * Reason Comments Follow [...] Description 09/07/2023 5:40 PM EDT Office Visit [facility] [address] [place] [address] Pastor Castellano MD [address] [place] [address] Preoperative general physical examination*; Encounter for screening mammogram for malignant neoplasm of breast; Type 2 diabetes mellitus with hyperglycemia, with long-term current use of insulin (HCC); Postmenopausal status, age-related; Type 2 diabetes mellitus with diabetic polyneuropathy, with long-term current use of insulin ([facility]); Acquired hypothyroidism; Dyslipidemia; ZAN on CPAP; Primary hypertension; Fibromyalgia; Primary osteoarthritis of right knee Allergies Active Allergy Reactions Criticality Noted Date Comments Duloxetine Hcl Edema Other 03/12/2017 Gabapentin Edema Other 03/12/2017 Lidocaine Fever High 03/12/2017 Pregabalin Edema Other 03/12/2017 Meloxicam Edema Other 01/12/2018 Procaine Fever 07/30/2017 documented as of this encounter (statuses as of 10/10/2023) Medications Medication Sig Dispensed Refills Start Date End Date Status NOVOLOG FLEXPEN 100 UNIT/ML SUBQ SOLN per sliding scale Active Vitamin D, Ergocalciferol, 09444 units Capsule Take 1 Capsule by mouth [...] every night at bedtime . Active Nystatin 819518 UNIT/GM External Powder (Nystop)Indication s:Yeast dermatitis Apply [...] of 5 per day. 150 Tablet 09/01/2023 Discontinue d(Refill) documented as of this encounter (statuses as of 10/10/2023) Active Problems Problem Noted Date Diagnosed Date [...] as of this encounter (statuses as of 10/10/2023) Resolved Problems Problem Noted Date Diagnosed Date Resolved Date Recurrent sinus infections 12/13/2017 0 05/11/2023 Type 2 diabetes mellitus with hyperglycemia 11/23/2017 05/11/2023 Bleeding ulcer 11/23/2017 documented as of this encounter (statuses as of 10/10/2023) Immunizations Name Administration Dates Next Due COVID-19 mRNA, LNP-s, No Pre serve, 2-Dose Series ([employer]) 09/27/2020,09/05/2020 Covid-19, Mrna, Lnp-s, Pf, B ivalent, 30 Mcg, IM, 12 yrs and above (Pfizer) 11/04/2022 Pneumococcal Conjugate Vacci ne, 20-valent ([id number]) 07/06/2022 Pneumococcal Polysaccharide PPV23 (Pneumovax) 10/19/2013 Seasonal [...] biopsy or surgery Youre Date Last Reviewed: 08/06/201619996233-8576 [employer]. [address] [place], [place] [id number]. All rights reserved. This information is not [...] calluses yourself. Talk to your doctor or instruction assistant principal (a doctor who specializes in foot care) [...] the area doesnt appear to be healing. 4589-0416 [employer], [address] [place] [address], [place] [address]. All rights reserved. This information is not [...] than one site may be scanned. Charlie Paradine, [address] [place] [address]. All rights reserved. This information is not [...] be performing right total knee arthroplasty at [facility] on 10/26/23. Pt has a visit for preop labs, EKG on 09/28/23. Pt has been working with [facility] to improve blood sugars to a [...] 2 bypasses, dm Endocrine Disorder Father Other ([place]) Sister Heart Disorder Brother mi Other ([place]) Brother Past Medical History: Diagnosis Date Anxiety Arthritis knees, hips, ankles, hands, shoulder Bleeding ulcer 1989 Depression DM (diabetes mellitus) (HCC) Dyslipidemia Fibromyalgia HTN (hypertension) Migraines Recurrent sinus infections Past Surgical History: Procedure Laterality Date COLONOSCOPY, DIAGNOSTIC (RECTUM) 07/16/2021 diverticulosis, repeat 10 yrs / COLONOSCOPY FLEXIBLE PROXIMAL DIAGNOSTIC performed by Ambar Watson DO at ENDOSCOPY [facility] LAPAROSCOPY;APPENDECTOMY REDUCTION OF BREAST Bilateral 2015 VAGINAL DELIVERY ONLY x2 Review of patient's allergies indicates: Allergen Reactions Lidocaine Fever Cymbalta [Duloxetine Hcl] Edema Other Gabapentin Edema Other Lyrica [Pregabalin] Edema Other Meloxicam Edema Other Novocain [Procaine] Fever Current Outpatient Medications Medication Sig Dispense Refill NOVOLOG FLEXPEN 100 UNIT/ML SUBQ SOLN per sliding scale Vitamin D, Ergocalciferol, 22827 units Capsule Take 1 Capsule by mouth [...] BiPAP every night at bedtime . Nystatin 503333 UNIT/GM External Powder (Nystop) Apply to affected [...] with long-term current use of insulin ([facility]) Acquired hypothyroidism Dyslipidemia ZAN on CPAP Primary hypertension Fibromyalgia Primary osteoarthritis of right knee -all stable, continue current treatments Follow Up: Return in about 6 months (around 03/09/2024) for recheck. | For: recheck 35 min with pt and chart review. Pastor Castellano MD * Lorenzo Ramirez MED [...] Description 04/04/2024 5:40 PM EST Office Visit [facility] [address] [place] [address] Pastor Castellano MD [address] [facility] [place] [address] Scheduled Procedures Name Priority Associated Diagnoses [...] 11/05/2023 11/04/2022, , 09/06/2015 GFR 11/05/2023 11/04/2022, 0503/2022, 01/12/2022, Additional history exists TSH 11/05/2023 11/04/2022, [...] leg documented in this encounter Care Teams Circular Saw Edge Fuser Relationship Specialty Start Date End Date Pastor Castellano MD [address] [place] [address] PCP - General Family Medicine 06/06/18 documented as of this encounter"
--- OUTSIDE RECORDS SUMMARY | 2023-10-26 05:51 | External Medical Summary | Summary of Care ---
Author Name Unknown Organization [facility] Address [address] [facility] [place] [address] Phone [phone] Care Team Providers Care Grades 1 Thru 6 Visiting Teacher Name Role Phone Esperanza Bo MD Primary Care Provider [phone]- [phone] Reason for Visit * Reason Onset Date Comments Medication Refill 09/01/2023 Encounter Details Date Type Department Care Team (Late st Contact Info) Description 09/01/2023 Refill [facility] [address] [place] [facility] [place] [address] Esperanza Bo MD [address] [place] [address] Chronic bilateral low back pain without sciatica Allergies Active Allergy Reactions Criticality Noted Date Comments Duloxetine Hcl Edema Other 03/12/2017 Gabapentin Edema Other 03/12/2017 Lidocaine Fever High 03/12/2017 Pregabalin Edema Other 03/12/2017 Meloxicam Edema Other 01/12/2018 Procaine Fever 07/30/2017 documented as of this encounter (statuses as of 09/01/2023) Medications Medication Sig Dispensed Refills Start Date End Date Status NOVOLOG FLEXPEN 100 UNIT/ML SUBQ SOLN per sliding scale Active Vitamin D, Ergocalciferol, 37401 units Capsule Take 1 Capsule by mouth [...] as needed 1 Tube 1 05/26/2019 Active Additional Information Patient not taking.Reported on 04/25/2022 Fexofenadine HCl 180 MG Oral Tablet (VINI)Indicatio ns:Allergic rhinitis, unspecified seasonality, unspecified trigger Take 1 Tab by mouth daily as needed for Allergies. 30 Tab 11 01/05/2020 Active Lantus SoloStar 100 UNIT/ML Subcutaneous Solution Pen-injector 80 units at bed time 04/29/2020 Active BiPAP every night at bedtime . Active Nystatin 402093 UNIT/GM External Powder (Nystop)Indication s:Yeast dermatitis Apply [...] THE MORNING 90 Tablet 2 02/16/2023 Active Cyclobenzaprine HCl 5 MG Oral Tablet (Flexeril)Indicati [...] 1 Tablet before bedtime. 60 Tablet 09/01/2023 Active oxyCODONE-Acetamin ophen 5-325 MG Oral Tablet (Percocet)Indicati ons:Chronic bilateral low back pain without sciatica Take 1 Tablet by mouth every 4 hours as needed for Pain, Breakthrough. Max of 5 per day. 150 Tablet 09/01/2023 Active Amphetamine-Dextro amphetamine 20 MG Oral Tablet (Adderall) Take 1 Tablet by mouth in the morning and 1 Tablet before bedtime. 60 Tablet 08/06/2023 4 Discontinue d(Refill) oxyCODONE-Acetamin ophen 5-325 MG Oral Tablet (Percocet)Indicati ons:Chronic bilateral low back pain without sciatica Take 1 Tablet by mouth every 4 hours as needed for Pain, Breakthrough. Max of 5 per day. 150 Tablet 08/06/2023 4 Discontinue d(Refill) documented as of this encounter (statuses as of 09/01/2023) Active Problems Problem Noted Date Diagnosed Date [...] as of this encounter (statuses as of 09/01/2023) Resolved Problems Problem Noted Date Diagnosed Date Resolved Date Recurrent sinus infections 12/13/2017 0 05/11/2023 Type 2 diabetes mellitus with hyperglycemia 11/23/2017 05/11/2023 Bleeding ulcer 11/23/2017 documented as of this encounter (statuses as of 09/01/2023) Immunizations Name Administration Dates Next Due COVID-19 mRNA, LNP-s, No Pre serve, 2-Dose Series ([employer]) 09/27/2020,09/05/2020 Covid-19, Mrna, Lnp-s, Pf, B ivalent, 30 Mcg, IM, 12 yrs and above (Pfizer) 11/04/2022 Pneumococcal Conjugate Vacci ne, 20-valent ([id number]) 07/06/2022 Pneumococcal Polysaccharide PPV23 (Pneumovax) 10/19/2013 Seasonal [...] encounter Miscellaneous Notes * Telephone Encounter - Esperanza Bo MD - 09/01/2023 3:33 PM EDTSigned Prescriptions: Disp Refills Amphetamine-Dextroamphetamine 20 MG Oral T*60 Tab*0 Sig: Take 1 Tablet by mouth in the morning and 1 Tablet before bedtime.Authorizing Provider: ESPERANZA BO RoxyCODONE-Acetaminophen 5-325 MG Oral Tabl*150 Ta*0 Sig: Take 1 Tablet by mouth every 4 hours as needed for Pain, Breakthrough. Max of 5 per day.Authorizing Provider: ESPERANZA BO * [facility] 3:24 PM EDTPending Prescriptions: Disp Refills Amphetamine-Dextroamphetamine 20 MG Oral T*60 Tab*0 Sig: Take 1 Tablet by mouth in the morning and 1 Tablet before bedtime. oxyCODONE-Acetaminophen 5-325 MG Oral Tabl*150 Ta*0 Sig: Take 1 Tablet by mouth every 4 hours as needed for Pain, Breakthrough. Max of 5 per day. * Telephone Encounter - Gutierrez Drake [facility] - 09/01/2023 3:22 PM EDT I have reviewed the patients controlled substance dispensing history in the Prescription Drug Monitoring Program in compliance with the [facility] regulations before prescribing a controlled substance. PDMP checked on 09/01/2023. Pending Prescriptions: Disp Refills Amphetamine-Dextroamphetamine 20 MG Oral *60 Tab*0 Sig: Take 1 Tablet by mouth in the morning and 1 Tablet before bedtime. oxyCODONE-Acetaminophen 5-325 MG Oral Tab*150 Ta*0 Sig: Take 1 Tablet by mouth every 4 hours as needed for Pain, Breakthrough. Max of 5 per day. Last Visit: 11/13/2022 (in office), 05/28/2022 (telemedicine) Next Visit: 09/07/2023 Date medication was last filled: 08/06/23 for both Date medication is due for refill: 09/04/23 for both [id number] [facility] Is this request for a controlled substance? Yes and Urine Drug Screen Not completed Toxicology results: Results for orders placed or performed in visit on 07/06/22 TOXICOLOGY, URINE SCREEN W/ CONFIRMATION Result Value Amphetamines Screen, U Positive (A) Benzodiazepines Screen, U Negative Cannabinoids Screen, U Negative Cocaine Metabolite Screen, U Negative Fentanyl Screen, U Negative Hydrocodone Screen, U Negative Methadone Metabolite Screen, U Negative Morphine/Codeine Screen, U Negative Oxycodone Screen, U Positive (A) Narrative Cutoff Concentrations: Drug Level Amphetamines 500 ng/mL Benzodiazepines 100 ng/mL Cannabinoids 50 ng/mL Cocaine Metabolite 150 ng/mL Fentanyl 1 ng/mL Hydrocodone / Hydromorphone 300 ng/mL Methadone Metabolite 100 ng/mL Morphine / Codeine 300 ng/mL Oxycodone / Oxymorphone 100 ng/mL Screening results are presumptive and can only be used for medical purposes. Positive screening results are reflexed to confirmatory testing. Please approve if appropriate. Thank You, Gutierrez Griffin [facility] Clinical Pharmacist [facility] ([facility]) 09/01/2023, 3:22 PM * Telephone Encounter - Farhana Banuelos CPhT - 09/01/2023 9:49 AM EDT Did you pend patient's preferred pharmacy and medication before forwarding?yes Pharmacy: [id number] Pending Prescriptions: Disp Refills Amphetamine-Dextroamphetamine 20 MG Oral *60 Tab*0 Sig: Take 1 Tablet by mouth in the morning and 1 Tablet before bedtime. oxyCODONE-Acetaminophen 5-325 MG Oral Tab*150 Ta*0 Sig: Take 1 Tablet by mouth every 4 hours as needed for Pain, Breakthrough. Max of 5 per day. Last Visit: 11/13/2022 (in office), 05/28/2022 (telemedicine) Next Visit: 09/07/2023 If no future appointments scheduled, and last appointment is greater than a year ago, please schedule patient for a follow-up appointment Last date the medication was ordered: 08/06/2023 Is this request for a controlled substance?Yes, What was the last refill date 08/06/2023 w/ [id number] 60 and dosage 5-325 20 and Urine Drug Screen was completed Urine Drug Screen: Results for orders placed or performed in visit on 07/06/22 TOXICOLOGY, URINE SCREEN W/ CONFIRMATION Result Value Amphetamines Screen, U Positive (A) Benzodiazepines Screen, U Negative Cannabinoids Screen, U Negative Cocaine Metabolite Screen, U Negative Fentanyl Screen, U Negative Hydrocodone Screen, U Negative Methadone Metabolite Screen, U Negative Morphine/Codeine Screen, U Negative Oxycodone Screen, U Positive (A) Narrative Cutoff Concentrations: Drug Level Amphetamines 500 ng/mL Benzodiazepines 100 ng/mL Cannabinoids 50 ng/mL Cocaine Metabolite 150 ng/mL Fentanyl 1 ng/mL Hydrocodone / Hydromorphone 300 ng/mL Methadone Metabolite 100 ng/mL Morphine / Codeine 300 ng/mL Oxycodone / Oxymorphone 100 ng/mL Screening results are presumptive and can only be used for medical purposes. Positive screening results are reflexed to confirmatory testing. Patient Phone Numbers Labs: Lab Results Component Value Date/Time CREAT 0.95 11/04/2022 12:00 AM POTASSIUM 4.4 11/04/2022 12:00 AM TSH 0.663 11/04/2022 12:00 AM LDLCALC 21 07/06/2022 02:39 PM LDLCALC 105 01/12/2022 12:00 AM LDLDIRECT 141 (A) 04/21/2019 12:00 AM ALT 26 07/06/2022 02:39 PM ALT 17 01/12/2022 12:00 AM HGBA1C 7.5 (A) 08/27/2023 12:00 AM documented in this encounter Plan of Treatment Upcoming Encounters Date Type Department Care Team (Late st Contact Info) Description 09/07/2023 5:40 PM EDT Office Visit [facility] [address] [place] [facility] [place] [address] Esperanza Bo MD [address] [place] [facility] [place] [address] Scheduled Procedures Name Priority Associated Diagnoses Date/Ti me COLONOSCOPY FLEXIBLE PROXIMAL DIAGNOSTIC Recall Screen for colon cancer Health Maintenance Due Date Last Done Comments Hepatitis C Screening 1976 Cologuard 2003 Fecal Occult Blood Test 2003 Sigmoidoscopy 2003 Zoster Vaccines (1 of 2) 2008 Mammogram 08/20/2018 08/20/2017, 09/13/2015 Albumin/Creatinine Ratio 12/10/2018 12/10/2017, 08/07 COVID-19 Vaccine ( season) 2022 11/04/2022, 09/27/2020, 09/05/2020 Diabetic Foot Exam 02/20/2023 02/20/2022, 01/31/2019 DXA Scan 2023 Diabetic Eye Exam 11/05/2023 11/04/2022, , 09/06/2015 GFR 11/05/2023 11/04/2022, 0503/2022, 01/12/2022, Additional history exists TSH 11/05/2023 11/04/2022, 1109/2021, 12/10/2017, Additional history exists HbA1c 02/26/2024 08/27/2023, 08/3 , 07/06/2022, Additional history exists Depression Monitoring 05/26/2024 05/27/2023 Lipid Panel 07/07/2027 07/06/2022, 11/0 09/2021, 04/21/2019, Additional history exists DTaP,Tdap,and Td Vaccines (2 - Td or Tdap) 01/31/2029 01/31/2019 Colonoscopy 07/17/2031 07/16/2021, 07/16/2021 Colorectal Cancer Screening 07/17/2031 Cervical Cancer Screening Discontinued Pap Smear Discontinued 06/06/2020, 03/12/2017 Pneumococcal Vaccine: 65+ Years Completed 07/06/2022, 10/19/2013 Influenza Vaccine (FLU shot) Completed 11/04/2022, 01/06/2022, 11/28/2020, Additional history exists GARDASIL-HPV IMMUNIZATION SERIES Aged Out No longer eligible based on patient's age to complete this topic HPV/Co-Test Discontinued Hepatitis B Aged Out No longer eligi ble based on patient's age to complete this topic MENINGOCOCCAL (MENACTRA/MENVEO) Aged Out No longer eligible based on patient's age to complete this topic documented as of this encounter Medical Devices Not on filedocumented as of this encounter Visit Diagnoses Diagnosis Chronic bilateral low back pain without sciatica documented in this encounter Care Teams Grades 1 Thru 6 Visiting Teacher Relationship Specialty Start Date End Date Esperanza Bo MD [address] [place] [address] PCP - General Family Medicine 06/06/18 documented as of this encounter
--- OUTSIDE RECORDS SUMMARY | 2023-10-26 05:51 | External Medical Summary | Summary of Care ---
Author Name Unknown Organization [facility] Address [address] [facility] [place] [address] Phone [phone] Care Team Providers Care Radiation Therapy Technologist Name Role Phone Esperanza Bo MD Primary Care Provider [phone]- [phone] Reason for Visit * Reason Onset Date Comments Medication Refill 09/29/2023 Encounter Details Date Type Department Care Team (Late st Contact Info) Description 09/29/2023 Refill [facility] [address] [place] [address] Esperanza Bo MD [address] [place] [address] Type 2 diabetes mellitus with hyperglycemia, with long-term current use of insulin (HCC)*; Chronic bilateral low back pain without sciatica Allergies Active Allergy Reactions Criticality Noted Date Comments Duloxetine Hcl Edema Other 03/12/2017 Gabapentin Edema Other 03/12/2017 Lidocaine Fever High 03/12/2017 Pregabalin Edema Other 03/12/2017 Meloxicam Edema Other 01/12/2018 Procaine Fever 07/30/2017 documented as of this encounter (statuses as of 09/30/2023) Medications Medication Sig Dispensed Refills Start Date End Date Status NOVOLOG FLEXPEN 100 UNIT/ML SUBQ SOLN per sliding scale Active Vitamin D, Ergocalciferol, 30242 units Capsule Take 1 Capsule by mouth [...] every night at bedtime . Active Nystatin 720177 UNIT/GM External Powder (Nystop)Indication s:Yeast dermatitis Apply [...] Tablet before bedtime. 60 Tablet 09/30/2023 Active oxyCODONE-Acetamin ophen 5-325 MG Oral Tablet (Percocet)Indicati ons:Chronic bilateral low back pain without sciatica Take 1 Tablet by mouth every 4 hours as needed for Pain, Breakthrough. Max of 5 per day. 150 Tablet 09/30/2023 Active Amphetamine-Dextro amphetamine 20 MG Oral Tablet (Adderall) Take 1 Tablet by mouth in the morning and 1 Tablet before bedtime. 60 Tablet 09/01/2023 Discontinue d(Refill) oxyCODONE-Acetamin ophen 5-325 MG Oral Tablet (Percocet)Indicati ons:Chronic bilateral low back pain without sciatica Take 1 Tablet by mouth every 4 hours as needed for Pain, Breakthrough. Max of 5 per day. 150 Tablet 09/01/2023 Discontinue d(Refill) documented as of this encounter (statuses as of 09/30/2023) Active Problems Problem Noted Date Diagnosed Date [...] as of this encounter (statuses as of 09/30/2023) Resolved Problems Problem Noted Date Diagnosed Date Resolved Date Recurrent sinus infections 12/13/2017 0 05/11/2023 Type 2 diabetes mellitus with hyperglycemia 11/23/2017 05/11/2023 Bleeding ulcer 11/23/2017 documented as of this encounter (statuses as of 09/30/2023) Immunizations Name Administration Dates Next Due COVID-19 mRNA, LNP-s, No Pre serve, 2-Dose Series ([employer]) 09/27/2020,09/05/2020 Covid-19, Mrna, Lnp-s, Pf, B ivalent, 30 Mcg, IM, 12 yrs and above (Pfizer) 11/04/2022 Pneumococcal Conjugate Vacci ne, 20-valent ([id number]) 07/06/2022 Pneumococcal Polysaccharide PPV23 (Pneumovax) 10/19/2013 Seasonal [...] Telephone Encounter - Esperanza Bo MD - 09/30/2023 5:55 PM EDTSigned Prescriptions: Disp Refills Amphetamine-Dextroamphetamine 20 MG Oral T*60 Tab*0 Sig: Take 1 Tablet by mouth in the morning and 1 Tablet before bedtime.Authorizing Provider: ESPERANZA BO RoxyCODONE-Acetaminophen 5-325 MG Oral Tabl*150 Ta*0 Sig: Take 1 Tablet by mouth every 4 hours as needed for Pain, Breakthrough. Max of 5 per day.Authorizing Provider: ESPERANZA BO * Telephone Encounter - Kristen Reyna [facility] - 09/30/2023 7:05 AM EDT Pending Prescriptions: Disp Refills Amphetamine-Dextroamphetamine 20 MG Oral T*60 Tab*0 Sig: Take 1 Tablet by mouth in the morning and 1 Tablet before bedtime. oxyCODONE-Acetaminophen 5-325 MG Oral Tabl*150 Ta*0 Sig: Take 1 Tablet by mouth every 4 hours as needed for Pain, Breakthrough. Max of 5 per day. * Telephone Encounter - Kristen Reyna RPh - 09/30/2023 6:46 AM EDT I have reviewed the patients controlled substance dispensing history in the Prescription Drug Monitoring Program in compliance with the [facility] regulations before prescribing a controlled substance. PDMP checked on 09/30/2023. Pending Prescriptions: Disp Refills Amphetamine-Dextroamphetamine 20 MG Oral *60 Tab*0 Sig: Take 1 Tablet by mouth in the morning and 1 Tablet before bedtime. oxyCODONE-Acetaminophen 5-325 MG Oral Tab*150 Ta*0 Sig: Take 1 Tablet by mouth every 4 hours as needed for Pain, Breakthrough. Max of 5 per day. Last Visit: 09/07/2023 (in office), 05/28/2022 (telemedicine) Next Visit: 04/04/2024 Date medication was last filled: 09/03/23 Date medication is due for refill: 10/02/23 [facility]: [id number] [facility] Is this request for a controlled [...] confirmatory testing. Please approve if appropriate. Thank you, Kristen Reyna, PharmD Clinical Pharmacist [facility] ([facility]) [phone] 09/30/2023, 6:46 AM * Telephone Encounter - Jesica Ludwig PHARM Tech - 09/29/2023 1:57 PM EDT Did you pend patient's preferred pharmacy [...] Max of 5 per day. Last Visit: 09/07/2023 (in office), 05/28/2022 (telemedicine) Next Visit: 04/04/2024 If no future appointments scheduled, and last appointment is greater than a year ago, please schedule patient for a follow-up appointment Last date the medication was ordered: 08/31/2023 Is this request for a controlled substance?Yes, What was the last refill date 09/01/2023 w/ quantity 150 and dosage 5-325 and Urine Drug Screen Not completed Urine Drug Screen: Results for orders [...] 04/04/2024 5:40 PM EST Office Visit [facility] [address] [place] [address] Esperanza Bo MD [address] [place] [address] Scheduled Orders Name Type Priority Associated Diagnoses Orde r Schedule ALBUMIN / CREATININE RATIO, URINE Lab Routine Type 2 diabetes mellitus with hyperglycemia, with long-term current use of insulin (HCC) Expected: 12/31/2023, Expires: 09/29/2024 Scheduled Procedures Name Priority Associated Diagnoses Date/Ti me COLONOSCOPY FLEXIBLE PROXIMAL DIAGNOSTIC Recall Screen for colon cancer Health Maintenance Due Date Last Done Comments Hepatitis C Screening 1976 Cologuard 2003 Fecal Occult Blood Test 2003 Sigmoidoscopy 2003 Zoster Vaccines (1 of 2) 2008 Mammogram 08/20/2018 08/20/2017, 09/13/2015 Albumin/Creatinine Ratio 12/10/2018 12/10/2017, 0603/2015 COVID-19 Vaccine ( season) 2022 11/04/2022, 09/27/2020, [...] as of this encounter Visit Diagnoses Diagnosis Type 2 diabetes mellitus with hyperglycemia, with long-term current use of insulin (HCC)- Primary Chronic bilateral low back pain without sciatica documented in this encounter Care Teams Radiation Therapy Technologist Relationship Specialty Start Date End Date Esperanza Bo MD [address] [place] [facility] [place] [address] PCP - General Family Medicine 06/06/18 documented as of this encounter
[2023-10-26] MEDS: ACETAMINOPHEN 500 MG TAB PO SCH ×2 (06:16→13:41)
[2023-10-26] MEDS: LR 60ML/HR IV SCH (06:17)
[2023-10-26] MEDS: Scopolamine 1 MG TDSY TD SCH (06:17)
[2023-10-26] MEDS: LR 500ML BOLUS, THEN 15ML/HR IV SCH (06:17)
[2023-10-26] MEDS ORDERED: ROPIVACAINE 0.5% 5 MG/ML 30 ML VIAL ONE (06:21)
[2023-10-26] MEDS ORDERED: BUPIVACAINE 0.5 % 5 MG/1 ML PF 10ML VIAL ONE (06:21)
[2023-10-26] MEDS ORDERED: PROPOFOL IV EMULSION 10 MG/ML 20 ML VIAL IV ONE (06:23)
[2023-10-26] MEDS ORDERED: fentaNYL citrate PF 100 MCG/2 ML VIAL ONE (06:23)
[2023-10-26] MEDS ORDERED: MIDAZOLAM HCL 1 MG/ML 2ML VIAL ONE (06:23)
[2023-10-26] MEDS ORDERED: KETOROLAC 30 MG/ML VIAL ONE (06:23)
--- NOTE | 2023-10-26 06:38 | History & Physical Bridge Note ---
Date of Service October 26, 2023 History & Physical Bridge Note I have examined the patient, reviewed the History & Physical and in the interval since the performance of the History & Physical I have noted the following changes of clinical significance: no changes noted
[2023-10-26] MEDS ORDERED: ONDANSETRON INJ 2 MG/ML 2 ML VIAL IV PRN ×2 (06:39→09:40)
[2023-10-26] MEDS ORDERED: ePHEDrine sulfate 50 MG/ML AMP IV PRN (06:39)
[2023-10-26] MEDS ORDERED: ATROPINE SULFATE 0.1 MG/ML 10ML SYR IV PRN (06:39)
[2023-10-26] MEDS ORDERED: fentaNYL citrate PF 100 MCG/2 ML VIAL IV PRN (06:39)
[2023-10-26] MEDS: TRANEXAMIC ACID 1,000 MG **IV Pre-op IV SCH (06:42)
[2023-10-26] MEDS: ceFAZolin 2000MG 2,000 MG/15 ML SYR IV SCH ×2 (07:05→15:22)
[2023-10-26] MEDS ORDERED: PHENYLEPHRINE 100MCG/ML 10ML SYR IV ONE (07:33)
[2023-10-26] MEDS ORDERED: PHENYLEPHRINE HCL 10 MG/ML VIAL ONE (07:33)
[2023-10-26] MEDS ORDERED: ePHEDrine sulfate 50 MG/5 ML SYR ONE (07:33)
[2023-10-26] MEDS: ORTHO JOINT ANESTHETIC ONE (07:49)
[2023-10-26] MEDS ORDERED: KETAMINE HCL 10MG/ML SYR ONE (08:04)
[2023-10-26] MEDS: ROPIVACAINE 0.5% HCL/PF 246 MG, Ketorolac (*for OR use only*) 30 MG, EPINEPHrine 30MG/3... INFIL SCH (08:40)
[2023-10-26] MEDS: TRANEXAMIC ACID 1,000 MG **IV Intra-op IV SCH (08:48)
--- NOTE | 2023-10-26 09:09 | Post Operative Brief Note ---
Immediate Post Op Note Date of Surgery October 26, 2023 Pre & Post Diagnosis Operation Date: 10/26/23 07:00 Pre-Op Diagnosis: Right Knee Osteoarthritis Post-Op Diagnosis: Right Knee Osteoarthritis I identified the patient and participated in the time-out.: Yes Procedure Operation Date: 10/26/23 07:00 Actual Procedures p Right Total Knee Arthroplasty(Right) - Ac Medina MD Surgeon Ac Medina MD Labor Conciliator ANAMARIA Castañeda PA-C (No fellow avail) Estimated Blood Loss 75 Findings Consistent with Post-Op Diagnosis Fluids 1500 cc Specimens Right knee contents Anesthesia Type MAC Spinal Regional Complications none
--- NOTE | 2023-10-26 09:10 | Operative Report ---
Post Operative Report Pre & Post Diagnosis Operation Date: 10/26/23 07:00 Pre-Op Diagnosis: Right Knee Osteoarthritis Post-Op Diagnosis: Right Knee Osteoarthritis I identified the patient and participated in the time-out.: Yes Procedure Operation Date: 10/26/23 07:00 Actual Procedures p Right Total knee replacement, imageless computer assisted navigation (Right) - Ac Medina MD Surgeon Ac Medina MD Forming Mill Operator ANAMARIA Castañeda PA-C (No fellow avail) Estimated Blood Loss 75 Findings See Below Examined Under Anesthesia: ROM -- There was 0 degrees to 120 degrees of flexion Ligamentous examination -- revealed stable Francis, posterior drawer, varus and valgus stress at 0 and 30 degrees. [place] Grade IV changes of Lateral and patellofemoral compartments, grade II medial compartment. Fluids 1500 cc Specimens Right knee contents Anesthesia Type MAC Spinal Regional Complications none Indications This is a 63-year-old female who has clinical and radiographic findings consistent with osteoarthritis of the a right knee. I recommended that a right total knee replacement be performed. The patient understands the risks of surgery, which include but not limited to: bleeding, infection, re-operation, damage to nerves and arteries, continued knee pain, knee stiffness, DVT, and . The patient understands all of these instructions and explanations, all of his questions have been satisfactorily addressed and the patient has elected to proceed. Informed consent was signed. Description of Procedure IMPLANTS: 1. Femur: Triathlon #2 Right PS. 2. Tibia: Triathlon #3 [place]. 3. Insert: Triathlon #3 x 9 mm PS X3 poly. 4. Patella: Triathlon A29 x 9 mm X3 poly. 5. Palacos cement. ANAMARIA Castañeda PA-C is assisting with positioning, retracting, and closure due to fellow not available. Procedure: The patient was taken to the Operating Room and placed in the supine position after spinal and adductor canal nerve block was administered. My initials and a multidisciplinary time-out were used to identify the right leg as the correct operative limb. A tourniquet was placed high in the thigh. Prior to the i ncision, 2 grams of intravenous Ancef were given. The right leg was then prepped and draped in a standard sterile fashion. An Esmarch was used to exsanguinate the leg and the tourniquet was inflated to 250 mmHg. The planned mid-line 20 cm incision was created exposing the extensor mechanism. The medial parapatellar arthrotomy was made and the patella was everted. The patella was addressed first. It was prepared by reaming from 24 mm down to 15 mm. An A29 button was found to fit best. The peg holes were made in the standard fashion. The femur was addressed next and using computer assisted OrthoAlign with 3 degrees of flexion and 0 degrees of valgus, removing 9 mm in the standard fashion for the distal cut. The cut was made and the 4-in-1 cutting block for a size 2 femur was placed. These cuts and the cuts to place the box were made in the standard fashion. The distal peg were created after testing knee stability with trial components in and using the trial femur as a guide in the standard fashion. Our attention was then drawn to the tibia cut with using imageless computer assisted OrthoAlign, taking 2 mm from the lateral low side. There was sufficient extension and flexion gap to fit a 9 mm spacer. A #3 Tibial baseplate fit well. A trial with a 9 mm spacer showed excellent stability in both flexion and extension, with good ligament balance, and thumbs free patellar tracking. Range of motion of 0-130 degrees. The tibial baseplate was prepped for the keel and stem.All components were removed. 90 ml of total knee cocktail were injected into the soft tissues and periosteum. All surfaces were copiously irrigated prior to placement of the components. The femoral component followed by Tibial baseplate were cemented in place and the 9 mm X3 poly was placed. Next, the patellar button was placed using the same cement. Once the cement had cured, the range of motion and stability were unchanged. The tourniquet was deflated. Hemostasis was obtained. The extensor mechanism was closed with 1-0 Vicryl and 0 Stratafix with the knee bent approximately 60 degrees in a standard fashion. The peritenon and deep fascia was closed with 2-0 Vicryl. The subcutaneous layer was closed with 3-0 Vicryl. The skin was closed with Zipline and shield. The limb was cleaned and dried. 4x4 dressing was placed over top followed by ABDs, sterile Webril, and a foot to thigh Derrick bandage. The patient was then transferred to the Recovery Room in stable condition. The sponge and needle counts were correct. POST-OP INSTRUCTIONS: The patient will be WBAT. The patient will be admitted to the hospital. Complete 24-hour course antibiotics. Labs will be obtained during the stay. DVT prophylaxis will included aspirin for 6 weeks, TEDs, and mechanical foot pumps. The dressing will be changed postop day #2-3 and covered with a Silverlon dressing. I attest to the content of the Intraoperative Record and any orders documented therein. Any exceptions are noted below.
[2023-10-26] MEDS ORDERED: diphenhydrAMINE 50 MG/ML VIAL IV PRN (09:40)
[2023-10-26] MEDS ORDERED: METOCLOPRAMIDE HCL INJ 5 MG/ML 2 ML VIAL IV PRN (09:40)
[2023-10-26] MEDS ORDERED: HYDROmorphone INJ 0.5 MG/0.5 ML SYR IV PRN (09:40)
[2023-10-26] MEDS ORDERED: ALUMINUM/MAGNESIUM SUSP 30 ML UDC PO PRN (09:40)
[2023-10-26] MEDS ORDERED: NALOXONE HCL 0.4 MG/1 ML VIAL/CARP IV PRN (09:40)
[2023-10-26] MEDS ORDERED: bisacodyL 10 MG SUPP PR PRN (09:40)
[2023-10-26] MEDS ORDERED: MAGNESIUM HYDROXIDE SUSP 30 ML UDC PO PRN (09:40)
[2023-10-26] MEDS ORDERED: CYCLOBENZAPRINE HCL 5 MG TAB PO PRN (09:46)
[2023-10-26] MEDS ORDERED: FLUTICASONE PROPIONATE NA SPR 16 GM BTL NAE PRN (09:46)
[2023-10-26] MEDS ORDERED: NYSTATIN POWDER 15GM BTL EXT PRN (09:46)
[2023-10-26] MEDS ORDERED: FEXOFENADINE HCL 180 MG TAB PO PRN (09:46)
--- NOTE | 2023-10-26 09:52 | Operative Report ---
Post Operative Report Pre & Post Diagnosis Operation Date: 10/26/23 07:00 Pre-Op Diagnosis: Right Knee Osteoarthritis Post-Op Diagnosis: Right Knee Osteoarthritis I identified the patient and participated in the time-out.: Yes Procedure Operation Date: 10/26/23 07:00 Actual Procedures p Right Total Knee Arthroplasty(Right) - Ac Medina MD Surgeon Ac Medina MD Report Programmer ANAMARIA Castañeda PA-C (No fellow avail) Estimated Blood Loss 75 Findings Consistent with Post-Op Diagnosis Specimens Knee bone and soft tissue Description of Procedure I was present during the entire procedure assisting with positioning, prepping, draping, wound retraction, wound closure and dressing application. No fellow present. Please see Dr. Medina procedure note for specifics of the case. I attest to the content of the Intraoperative Record and any orders documented therein. Any exceptions are noted below.
[2023-10-26] MEDS ORDERED: NON-FORMULARY MEDICATION (Insulin Aspart U-100 [Novolog Flexpen U-100 Insulin] 100 unit/mL subcut SCH (10:00)
--- NOTE | 2023-10-26 10:28 | Anesthesiology Progress Note ---
Date of Service October 26, 2023 Anesthesia Post Procedure Vital Signs Vital Signs: Temp Pulse Pulse Resp BP BP Pulse Ox 10/26/23 10:20 85 14 144/64 H 95 10/26/23 10:10 97.7 F 83 18 146/71 H 96 10/26/23 10:00 85 20 140/62 96 10/26/23 09:50 84 14 135/63 97 10/26/23 09:40 85 16 127/63 98 10/26/23 09:36 97.3 F L 83 15 128/60 98 10/26/23 05:54 98.2 F 99 H 18 115/88 94 O2 Del Method O2 Flow Rate 10/26/23 10:20 Room Air 10/26/23 10:10 Room Air 10/26/23 10:00 Room Air 10/26/23 09:50 Room Air 10/26/23 09:40 Room Air 10/26/23 09:36 Oxymask 6 10/26/23 05:54 Room Air Transfer of Care Handoff Completed per policy Notes Mental Status: alert / awake / arousable and participated in evaluation Patient Amnestic to Procedure: Yes Nausea / Vomiting: adequately controlled Pain: adequately controlled Airway Patency, RR, SpO2: stable & adequate BP & HR: stable & adequate Hydration State: stable & adequate Neuraxial Anesthesia: was administered and sensory block is resolving Anesthetic Complications: no major complications apparent and Pt Satisfied with anesthetic care
--- NOTE | 2023-10-26 10:30 | XRay Report ---
TWO VIEWS RIGHT KNEE CLINICAL HISTORY: Postoperative examination. FINDINGS: AP and crosstable lateral portable views of the right knee are obtained. A right knee arthr oplasty is in near anatomic alignment. There has been undersurface remodeling of the patella. No acut e fracture is seen. There are expected postoperative changes around the knee including soft tissue e joceline and subcutaneous gas. IMPRESSION: Expected postoperative changes status post right knee arthroplasty. No acute fracture is seen. ACT 112: Negative or not required by law. Electronically signed by: Moncho Frias M.D. 10/26/2023 10:28 AM
[2023-10-26] MEDS: KETOROLAC TROMETHAMINE 15 MG/ML VIAL IV SCH (11:25)
[2023-10-26] MEDS: SODIUM CHLORIDE 0.9% 1,000 ML IV SCH (11:25)
--- NOTE | 2023-10-26 11:28 | Consultation ---
Date of Consultation October 26, 2023 History of Present Illness Attending Physician: Ac Medina MD Allergies Allergy/AdvReac Type Severity Reaction Status Date / Time pregabalin Allergy Mild Leg Verified 10/26/23 05:50 swelling blue dye Allergy Unknown Leg Verified 10/26/23 05:50 swelling duloxetine Allergy Unknown Leg Verified 10/26/23 05:50 swelling gabapentin Allergy Unknown Hands/joint Verified 10/26/23 05:50 swelling meloxicam Allergy leg Verified 10/26/23 06:18 swelling procaine [From Novocain] AdvReac see Verified 10/26/23 06:18 notation Home Medications Medication Instructions Recorded Confirmed Type citalopram 20 mg tablet 20 mg PO QAM 04/23/19 10/26/23 History oxycodone-acetaminophen 5 mg-325 1 tab PO Q4H PRN pain 04/23/19 10/26/23 History mg tablet nystatin 100,000 unit/gram topical 1 appln topical TID PRN rash under 08/29/19 10/26/23 History powder breasts #1 g cyclobenzaprine 5 mg tablet 5 - 10 mg PO UD PRN muscle spasms 07/30/20 10/26/23 History dextroamphetamine-amphetamine 20 20 mg PO BID 07/30/20 10/26/23 History mg tablet (Adderall) blood-glucose meter (OneTouch #1 ea 02/27/21 08/31/23 Rx Verio Flex Meter) fexofenadine 180 mg tablet 180 mg PO DAILY PRN Allergy 05/13/21 10/26/23 History (Josefina Allergy) Symptoms lancets 33 gauge (OneTouch Delica #100 ea 05/13/21 08/31/23 History Lancets) blood glucose control, high #1 ea 01/26/22 08/31/23 History (OneTouch Verio High Control solution) pantoprazole 40 mg tablet,delayed 40 mg PO QAM 04/13/22 10/26/23 History release (Protonix) blood sugar diagnostic (OneTouch #400 ea 01/19/23 08/31/23 Rx Verio test strips) BD Lizbeth 2nd Gen Pen Needle 32 #400 ea 01/25/23 08/31/23 Rx gauge x 5/32" (pen needle, diabetic) fluticasone propionate 50 1 spray intranasal DAILY PRN 06/01/23 10/26/23 History mcg/actuation nasal Congestion spray,suspension (Flonase Allergy Relief) insulin glargine 100 unit/mL (3 90 unit subcut DAILY 08/31/23 10/26/23 History mL) subcutaneous pen (Lantus Solostar U-100 Insulin) ergocalciferol (vitamin D2) 1,250 1,250 mcg PO UD 09/15/23 10/26/23 History mcg (50,000 unit) capsule ezetimibe 10 mg tablet (Zetia) 10 mg PO QAM 09/15/23 10/26/23 History insulin aspart U-100 100 unit/mL 40 unit subcut UD 09/15/23 10/26/23 History (3 mL) subcutaneous pen (Novolog FlexPen U-100 Insulin aspart) levothyroxine 50 mcg tablet 50 mcg PO QAM 09/15/23 10/26/23 History lisinopril 10 mg tablet 10 mg PO QAM 09/15/23 10/26/23 History empagliflozin 25 mg tablet 25 mg PO QAM #90 tabs 09/27/23 10/26/23 Rx (Jardiance) rosuvastatin 40 mg tablet (Crestor) 40 mg PO QAM #30 tabs 10/26/23 Rx Patient History Medical History Attention deficit on Adderall Hx of gastric ulcer (~1990) GERD (gastroesophageal reflux disease) controlled, stable per pt Obesity Gastroparesis Fibromyalgia Hypertension controlled, stable per pt Complex sleep apnea syndrome CPAP "only wears about half of the night" Depression Dyslipidemia Hypothyroidism Type 2 diabetes mellitus, with long-term current use of insulin IDDM Chronic rhinitis Chronic migraine Lyme disease Residual arthritis, short term memory loss, migraines Surgical History History of anesthesia reaction Awareness with remote procedure "years ago" History of bilateral tubal ligation History of esophagogastroduodenoscopy (EGD) Hx of colonoscopy Hx of breast reduction, elective Hx of appendectomy Family History Mother Diabetes Father Diabetes Dyslipidemia Hypertension Heart failure Social History Smoking Status: Current some day smoker (-advised) Smoking End Date: none for 15 years; Second Hand Exposure: No; Do You Dip or Chew Tobacco: No; Tobacco Cessation Education Requested by Patient: No Hx Alcohol Use: Yes Alcohol type: wine Hx Substance Use: Yes (medical card) Last Used Substance Other:: occasional use, most recent 09/12/23-advised Preferred Language: Vietnamese Communication Ability: Effective Boat Motor Mechanic Required: No Beliefs That Will Affect Care: None marital status: marital status details: Multi-generational, high-stress family situation. Current Living Situation: Family current occupational status: disabled Other Information That Helps Us Care for You: No Feels Safe at Home: Yes Safety Concerns: Feels Safe At This Time Assistive Devices: CPAP, Denture - Upper, Denture - Lower and Glasses Assistive Devices Comment: hardly wears dentures Results & Data Vital Signs (Past 12 Hours) Vital Signs Temp Pulse Pulse Resp BP BP Pulse Ox 10/26/23 11:09 36.6 C 72 17 144/74 H 96 10/26/23 10:37 36.6 C 83 18 133/73 96 10/26/23 10:20 85 14 144/64 H 95 10/26/23 10:10 36.5 C 83 18 146/71 H 96 10/26/23 10:00 85 20 140/62 96 10/26/23 09:50 84 14 135/63 97 10/26/23 09:40 85 16 127/63 98 10/26/23 09:36 36.3 C L 83 15 128/60 98 10/26/23 05:54 36.8 C 99 H 18 115/88 94 O2 Del Method O2 Flow Rate 10/26/23 11:09 Room Air 10/26/23 10:37 Room Air 10/26/23 10:20 Room Air 10/26/23 10:10 Room Air 10/26/23 10:00 Room Air 10/26/23 09:50 Room Air 10/26/23 09:40 Room Air 10/26/23 09:36 Oxymask 6 10/26/23 05:54 Room Air
[2023-10-26] MEDS ORDERED: DEXTROSE 50% 50 ML SYRINGE IV PRN (11:30)
[2023-10-26] MEDS ORDERED: CARBOHYDRATES FOR HYPOGLYCEMIA PO PRN (11:30)
[2023-10-26] MEDS ORDERED: GLUCOSE 10 TAB/TUBE PO PRN (11:30)
[2023-10-26] MEDS ORDERED: GLUCOSE 40% GEL 15 GM TUBE PO PRN (11:30)
[2023-10-26] MEDS ORDERED: GLUCAGON FOR INJ 1 MG VIAL SQ PRN (11:30)
[2023-10-26] MEDS ORDERED: PHARMACY GLYCEMIC MGMT CONSULT PRN (11:51)
--- NOTE | 2023-10-26 11:54 | Hospitalist Consultation ---
Date of Consultation October 26, 2023 Assessment & Plan (1) Status post total right knee replacement: Plan Jesica Chun is a 63y/o F with PMHx of dyslipidemia, hypothyroidism, DM type II, diabetic polyneuropathy, ZAN on CPAP, HTN, major depressive disorder, fibromyalgia, history of migraines and other problems listed below who was referred to our [facility] for post-operative medical management after undergoing right total knee arthroplasty with Dr. Medina on 10/25. S/P Right Total Knee Replacement POD#0 s/p right total knee arthroplasty with Dr. Medina. EBL: 75mL & Pre-Operative Hgb: 13.2 [09/28/23] Per ortho for pain control, wound care, anticoagulation and activities. Continue incentive spirometry, PT/OT when appropriate as per ortho team Monitor H/H for acute blood loss anemia and transfuse blood products PRN. HTN: Continue lisinopril, BP has been stable post-operatively. DM Type II: Hold home agents, basal/bolus regimen while inpatient. BSG checks ACHS, hemoglobin A1c in AM - follow results. ZAN on CPAP: CPAP HS ordered, continue. Other Chronic Medical Conditions: Dyslipidemia, depression, ADD, hypothyroidism and seasonal allergies --> Continue home medications for these specific conditions. DVT Prophylaxis: TEDs for now - As per primary care team. Code Status: FULL CODE PCP: Pastor Castellano MD Disposition: Admitted in Med/Surg - discharge planning as per primary care team. Thank you for this consultation. We will follow the patient with you during their hospital stay. You can reach a member of the [facility] 28/09 via [employer]. Patient seen in collaboration with Dr. Navarro. Please see addendum. I spent a total of 45 minutes coordinating, documenting, and providing care for this patient excluding time spent in the performance of separately billed services. This included personally reviewing all current laboratories and imaging studies, medical reconciliation, outpatient chart review and discussion with specialists. This chart was completed in part utilizing Speech Voice Recognition Software. Grammatical errors, random word insertions, pronoun errors, and incomplete sentences are an occasional consequence of this system due to software limitations, ambient noise, and hardware issues. Any formal questions or concerns about the content, text, or information contained within the body of this dictation should be directly addressed to the provider for clarification. Supervising Physician Co-Signing Physician Notes Pt was seen and examined by myself, Skyla Navarro MD on the day of service. Care was coordinated with Lizbeth Choudhury PA-C. 63yoF, POD #0, s/p R total knee replacement. Seen post-op, resting comfortably in bed, eating. States pain well controlled at that time. Follow post op hgb DMII- continue home Lantus 90U with ISS. Glycemic pharmacy consult. AM hgba1c and labs (CBC and BMP) Otherwise as above. I spent a total [id number] coordinating, documenting, and providing care for this patient excluding time spent in the performance of separately billed services History of Present Illness Reason for Consultation: Post-Operative Medical Management Requesting Physician: Post-Operative Medical Management Attending Physician: Ac Medina MD History of Present Illness Jesica Chun is a 63y/o F with PMHx of dyslipidemia, hypothyroidism, DM type II, diabetic polyneuropathy, ZAN on CPAP, HTN, major depressive disorder, fibromyalgia, history of migraines and other problems listed below who was referred to our [facility] Hospitalist Team for post-operative medical management after undergoing right total knee arthroplasty with Dr. Medina. History obtained from patient and associated chart review. Patient feels well post-operatively, pain under control. Denies any SOB or chest pain. No major concerns or questions at this time. Has her CPAP from home with her to use. Family members were at bedside eating lunch with her. She is tolerating her diet very well. Allergies Allergy/AdvReac Type Severity Reaction Status Date / Time pregabalin Allergy Mild Leg Verified 10/26/23 05:50 swelling blue dye Allergy Unknown Leg Verified 10/26/23 05:50 swelling duloxetine Allergy Unknown Leg Verified 10/26/23 05:50 swelling gabapentin Allergy Unknown Hands/joint Verified 10/26/23 05:50 swelling meloxicam Allergy leg Verified 10/26/23 06:18 swelling procaine [From Novocain] AdvReac see Verified 10/26/23 06:18 notation Home Medications Medication Instructions Recorded Confirmed Type citalopram 20 mg tablet 20 mg PO QAM 04/23/19 10/26/23 History oxycodone-acetaminophen 5 mg-325 1 tab PO Q4H PRN pain 04/23/19 10/26/23 History mg tablet nystatin 100,000 unit/gram topical 1 appln topical TID PRN rash under 08/29/19 10/26/23 History powder breasts #1 g cyclobenzaprine 5 mg tablet 5 - 10 mg PO UD PRN muscle spasms 07/30/20 10/26/23 History dextroamphetamine-amphetamine 20 20 mg PO BID 07/30/20 10/26/23 History mg tablet (Adderall) blood-glucose meter (OneTouch #1 ea 02/27/21 10/26/23 Rx Verio Flex Meter) fexofenadine 180 mg tablet 180 mg PO DAILY PRN Allergy 05/13/21 10/26/23 History (Josefina Allergy) Symptoms lancets 33 gauge (OneTouch Delica #100 ea 05/13/21 10/26/23 History Lancets) blood glucose control, high #1 ea 01/26/22 10/26/23 History (OneTouch Verio High Control solution) pantoprazole 40 mg tablet,delayed 40 mg PO QAM 04/13/22 10/26/23 History release (Protonix) blood sugar diagnostic (OneTouch #400 ea 01/19/23 10/26/23 Rx Verio test strips) fluticasone propionate 50 1 spray intranasal DAILY PRN 06/01/23 10/26/23 History mcg/actuation nasal Congestion spray,suspension (Flonase Allergy Relief) insulin glargine 100 unit/mL (3 90 unit subcut DAILY 08/31/23 10/26/23 History mL) subcutaneous pen (Lantus Solostar U-100 Insulin) ergocalciferol (vitamin D2) 1,250 1,250 mcg PO UD 09/15/23 10/26/23 History mcg (50,000 unit) capsule ezetimibe 10 mg tablet (Zetia) 10 mg PO QAM 09/15/23 10/26/23 History insulin aspart U-100 100 unit/mL 40 unit subcut UD 09/15/23 10/26/23 History (3 mL) subcutaneous pen (Novolog FlexPen U-100 Insulin aspart) levothyroxine 50 mcg tablet 50 mcg PO QAM 09/15/23 10/26/23 History lisinopril 10 mg tablet 10 mg PO QAM 09/15/23 10/26/23 History empagliflozin 25 mg tablet 25 mg PO QAM #90 tabs 09/27/23 10/26/23 Rx (Jardiance) rosuvastatin 40 mg tablet (Crestor) 40 mg PO QAM #30 tabs 10/26/23 10/26/23 Rx Patient History Medical History History of migraine Uncontrolled type 2 diabetes mellitus with hyperglycemia, with long-term current use of insulin Vitamin D deficiency Restless legs syndrome Lyme disease Hypothyroidism Hypertension Gastroparesis Fibromyalgia Fatigue Esophageal reflux Dyslipidemia Depression Complex sleep apnea syndrome Chronic sinusitis Chronic rhinitis Chest pressure Cervicalgia Breast hypertrophy in female Allergic rhinitis Vitamin B12 deficiency Tinnitus Stomach problems Sleep apnea Positive Lyme disease serology Polyarthralgia Obesity (BMI 30.0-34.9) Neck mass Memory loss Lymphadenopathy Insomnia Hypertrophy of nasal turbinates Deviated nasal septum Common migraine without aura Breast lump Arthritis Adult situational stress disorder Abnormal MRI Attention deficit on Adderall Hx of gastric ulcer (~1990) GERD (gastroesophageal reflux disease) controlled, stable per pt Obesity Gastroparesis Fibromyalgia Hypertension controlled, stable per pt Complex sleep apnea syndrome CPAP "only wears about half of the night" Depression Dyslipidemia Hypothyroidism Type 2 diabetes mellitus, with long-term current use of insulin IDDM Chronic rhinitis Chronic migraine Lyme disease Residual arthritis, short term memory loss, migraines Surgical History History of anesthesia reaction Awareness with remote procedure "years ago" History of bilateral tubal ligation History of esophagogastroduodenoscopy (EGD) Hx of colonoscopy Hx of breast reduction, elective Hx of appendectomy Family History Mother Diabetes Father Diabetes Dyslipidemia Hypertension Heart failure Social History Smoking Status: Current some day smoker (-advised) Smoking End Date: none for 15 years; Second Hand Exposure: No; Do You Dip or Chew Tobacco: No; Tobacco Cessation Education Requested by Patient: No Hx Alcohol Use: Yes Alcohol type: wine Hx Substance Use: Yes (medical card) Last Used Substance Other:: occasional use, most recent 09/12/23-advised Preferred Language: Nepali Communication Ability: Effective Building Maintenance Repairer Required: No Beliefs That Will Affect Care: None marital status: marital status details: Multi-generational, high-stress family situation. Current Living Situation: Family current occupational status: disabled Other Information That Helps Us Care for You: No Feels Safe at Home: Yes Safety Concerns: Feels Safe At This Time Assistive Devices: CPAP, Denture - Upper, Denture - Lower and Glasses Assistive Devices Comment: hardly wears dentures Review of Systems Review of Systems: At least ten systems reviewed and negative, except as noted in the HPI. Physical Exam Physical Exam: General: WD/WN, vitals as above, NAD, sitting up in bed, pleasant, conversing appropriately, A+Ox3, euthymic affect. HEENT: Normocephalic, atraumatic. Normal inspection, PERRL, conjunctivae normal, anicteric sclerae, oropharynx normal. Respiratory: Normal respiratory effort, lungs clear to auscultation, no wheeze, rales, rhonchi. No accessory muscle use. Cardiovascular: Regular rate, rhythm, no murmur, normal peripheral pulses, no BLE edema. Vessels: No JVD. Abdomen/GI: Normal bowel sounds, soft, nontender, no hepatosplenomegaly. Extremities/Musculoskeletal: No cyanosis or clubbing, bandaging and brace in place over R knee, no drainage or seeping noted. Neurologic: EOMI, accommodation nl, no face palsy, no dysarthria, CN's II-XI not formally tested but appear grossly intact bilaterally. Skin: No rashes, normal color, warm/dry. Results & Data Results & Data Vital Signs (Past 12 Hours) Vital Signs Temp Pulse Pulse Resp BP BP Pulse Ox 10/26/23 11:32 36.6 C 82 20 145/75 H 96 10/26/23 11:09 36.6 C 72 17 144/74 H 96 10/26/23 10:37 36.6 C 83 18 133/73 96 10/26/23 10:20 85 14 144/64 H 95 10/26/23 10:10 36.5 C 83 18 146/71 H 96 10/26/23 10:00 85 20 140/62 96 10/26/23 09:50 84 14 135/63 97 10/26/23 09:40 85 16 127/63 98 10/26/23 09:36 36.3 C L 83 15 128/60 98 10/26/23 05:54 36.8 C 99 H 18 115/88 94 O2 Del Method O2 Flow Rate 10/26/23 11:32 Room Air 10/26/23 11:09 Room Air 10/26/23 10:37 Room Air 10/26/23 10:20 Room Air 10/26/23 10:10 Room Air 10/26/23 10:00 Room Air 10/26/23 09:50 Room Air 10/26/23 09:40 Room Air 10/26/23 09:36 Oxymask 6 10/26/23 05:54 Room Air Diagnostic Findings Knee X-Ray 10/26/23 09:40 TWO VIEWS RIGHT KNEE CLINICAL HISTORY: Postoperative examination. FINDINGS: AP and crosstable lateral portable views of the right knee are obtained. A right knee arthroplasty is in near anatomic alignment. There has been undersurface remodeling of the patella. No acute fracture is seen. There are expected postoperative changes around the knee including soft tissue edema and subcutaneous gas. IMPRESSION: Expected postoperative changes status post right knee arthroplasty. No acute fracture is seen. ACT 112: Negative or not required by law. Electronically signed by: Moncho Frias M.D. 10/26/2023 10:28 AM Medications Administered Acetaminophen (Acetaminophen 500 Mg Tab) 1,000 mg PO PREOP VALERIANO Stop: 10/26/23 18:00 Last Admin: 10/26/23 06:16 Dose: 1,000 mg Documented By: EAC Lactated Ringer's (Lr) 1,000 mls @ 60 mls/hr IV .[id number] VALERIANO Stop: 10/26/23 22:39 Last Admin: 10/26/23 06:17 Dose: Not Given Documented By: EAC Cefazolin Sodium (Ancef 2000mg) 2,000 mg in 15 mls @ 3.75 mls/min IV PREOP VALERIANO; Protocol Stop: 10/26/23 18:00 Last Admin: 10/26/23 07:05 Dose: 3.75 mls/min Documented By: [id number] Tranexamic Acid (Tranexamic Acid / 0.7% Nacl) 1,000 mg in 100 mls @ 600 mls/hr IV TODAY@0600 [facility] Stop: 10/26/23 18:00 Last Infusion: 10/26/23 07:05 Dose: Infused Documented By: Admin: 10/26/23 06:42 Dose: 600 mls/hr Documented By: JOSEPH Tranexamic Acid (Tranexamic Acid / 0.7% Nacl) 1,000 mg in 100 mls @ 600 mls/hr IV TODAY@0600 [facility] Stop: 10/26/23 18:00 Last Infusion: 10/26/23 08:59 Dose: Infused Documented By: Admin: 10/26/23 08:48 Dose: 600 mls/hr Documented By: [id number] Lactated Ringer's (Lr) 1,000 mls @ 15 mls/hr IV .Q24H [facility] Stop: 10/26/23 18:00 Last Infusion: 10/26/23 07:05 Dose: Infused Documented By: Admin: 10/26/23 06:17 Dose: 15 mls/hr Documented By: JOSEPH Sodium Chloride (Nss) 1,000 mls @ 100 mls/hr IV .Q10H [facility] Stop: 10/27/23 06:00 Last Admin: 10/26/23 11:25 Dose: 100 mls/hr Documented By: ARABELLA Ketorolac Tromethamine (Ketorolac Tromethamine 15 Mg/Ml Vial) 15 mg IV Q6H [facility] Stop: 10/27/23 05:31 Last Admin: 10/26/23 11:25 Dose: 15 mg Documented By: ARABELLA Scopolamine (Scopolamine 1 Mg Tdsy) 1 patch TD PREOP [facility] Stop: 10/26/23 18:00 Last Admin: 10/26/23 06:17 Dose: 1 patch Documented By: JOSEPH Discontinued Medications Ropivacaine 246 mg/ Ketorolac Tromethamine 30 mg/Epinephrine HCl 0.5 mg/ Sodium Chloride 100.7 mls @ 0 mls/hr INFIL TODAY@0600 [facility]; Protocol Stop: 10/26/23 06:01 Last Admin: 10/26/23 08:40 Dose: 666 mls/hr Documented By: TKIA Miscellaneous (Ortho Joint Anesthetic ) Confirm Administered Dose 1 each .ROUTE .STK-MED ONE Stop: 10/26/23 07:02 Last Admin: 10/26/23 07:49 Dose: Not Given Documented By: EAMON
[2023-10-26] MEDS: INSULIN ASPART PER UNIT CHARGE SC SCH (12:42)
[2023-10-26] MEDS: oxyCODONE/ACETAMINOPHEN 5mg/325mg TAB PO PRN (13:39)
--- NOTE | 2023-10-26 13:40 | Pharmacy Report ---
Pharmacy Glycemic Short Note 2 - Date of Service October 26, 2023 - Glycemic Short BSG Results (Last 24 hours): 10/26/23 10/26/23 10/26/23 05:37 09:36 11:49 POC Glucose 92 91 143 H OUTPATIENT ANTIDIABETIC REGIMEN: * Lantus SQ 90 units daily * Novolog SQ 40 units + sliding scale AC * HbA1c 7.5% (08/27/23) ASSESSMENT: * Jesica is a 63 YO F admitted for a TKA and with a history of T2DM. Pharmacy has been consulted to assist with glycemic management while inpatient. * Patient did not receive steroids pre-operatively. Fasting BSG this AM is acceptable, if a bit low. Patient received 90 units of Lantus last night. Given high home dose, but current glycemic control a scaled protocol for Lantus was initiated. * Novolog was initiated at a weight based stress of 2; however, given patient's home regimen a tighter correction factor and insulin to CHO factor were chosen going forward. Will continue to monitor and adjust as necessary. PLAN FOR INPATIENT GLYCEMIC CONTROL: * Hold outpatient oral diabetes medications * Basal insulin * Lantus SQ BID 20-40 units, see order eMAR for additional details * Bolus insulin * NovoLog per scale ACHS or Q6hrs while NPO * Goal Range: Low 110 mg/dL - High 140 mg/dL * Correction Factor: 15 mg/dL/unit * Nutritional / Prandial insulin per carb ratio of 1 unit per 5 grams CHO consumed
[2023-10-26] MEDS: Scopolamine CHECK PATCH PLACEMENT SCH (15:22)
[2023-10-26] MEDS: CYCLOBENZAPRINE HCL 10 MG TAB PO PRN (15:29)
--- NOTE | 2023-10-26 16:03 | Orthopedic Progress Note ---
Date of Service October 26, 2023 Assessment & Plan (1) Knee osteoarthritis: Plan: POD #0 s/p Right TKA, doing as well as expected. Resume diet. WBAT with walker. OOB to chair. Continue pain control. Check labs tomorrow. DVT prophylaxis: TEDs 3 weeks, foot pumps while in hospital, ASA 81 mg BID for 6 weeks. PT/OT. D/C planning. Appreciate Hospitalist input. Present on Admission?: Yes Admission and Anticipated Discharge Date Admission Date: October 26, 2023 Subjective Doing fine, controlled right knee discomfort. Physical Exam Physical Exam: RLE: BCR < 2 sec. Sensation to light touch intact distally. Able to preform straight leg raise. Wiggling ankle and toes. Calf soft and non-tender. Dressing is clean, dry, intact. Results & Data Vital Signs (Past 12 Hours) Vital Signs Temp Pulse Pulse Resp BP BP Pulse Ox 10/26/23 13:45 36.7 C 86 18 137/76 95 10/26/23 12:40 36.6 C 88 17 129/67 96 10/26/23 11:32 36.6 C 82 20 145/75 H 96 10/26/23 11:09 36.6 C 72 17 144/74 H 96 10/26/23 10:37 36.6 C 83 18 133/73 96 10/26/23 10:20 85 14 144/64 H 95 10/26/23 10:10 36.5 C 83 18 146/71 H 96 10/26/23 10:00 85 20 140/62 96 10/26/23 09:50 84 14 135/63 97 10/26/23 09:40 85 16 127/63 98 10/26/23 09:36 36.3 C L 83 15 128/60 98 10/26/23 05:54 36.8 C 99 H 18 115/88 94 O2 Del Method O2 Flow Rate 10/26/23 13:45 Room Air 10/26/23 12:40 Room Air 10/26/23 11:32 Room Air 10/26/23 11:09 Room Air 10/26/23 10:37 Room Air 10/26/23 10:20 Room Air 10/26/23 10:10 Room Air 10/26/23 10:00 Room Air 10/26/23 09:50 Room Air 08/20/24 09:40 Room Air 10/26/23 09:36 Oxymask 6 10/26/23 05:54 Room Air
[2023-10-26] MEDS: FERROUS GLUCONATE 324 MG TAB PO SCH (16:49)
[2023-10-26] MEDS: ASCORBIC ACID 500 MG TAB PO SCH (16:49)
[2023-10-26] MEDS: DEXTROAMPHETAMINE/AMPHETAMINE IR 20 MG TAB PO SCH (21:13)
[2023-10-26] MEDS: LANTUS PER UNIT CHARGE SC SCH (21:13)
[2023-10-26] MEDS: SENNA 8.6 MG TAB PO SCH (21:14)
[2023-10-26] MEDS: DOCUSATE SODIUM 100 MG CAP PO SCH (21:14)
[2023-10-27] MEDS: oxyCODONE HCL IR 5 MG TAB (IMMEDIATE RELEASE) PO PRN (03:38)
[2023-10-27 03:46] VITALS: TEMP 98.1
[2023-10-27] MEDS: LEVOTHYROXINE SODIUM 50 MCG TABLET PO SCH (05:38)
[2023-10-27 05:46] LABS: Hematocrit (blood only) 31.8 % (37.0-47.0); Hemoglobin 10.4 g/dl (12.0-16.0); Mean Corpuscular Hemoglobin 30.9 pg (25.0-34.0); Mean Corpuscular Hgb Conc 32.7 g/dL (32.0-36.0); Mean Corpuscular Volume 94.4 fL (80.0-100.0); Mean Platelet Volume 9.7 fL (9.4-12.4); Platelet Count 280 K/uL (130-400); RDW Coefficient of Variation 12.7 % (11.5-14.5); RDW Standard Deviation 43.8 fL (36.4-46.3); Red Blood Count 3.37 M/uL (4.20-5.40); White Blood Count 9.41 K/ul (4.8-10.8)
[2023-10-27 06:00] LABS: BUN Creatinine Ratio 22.6 (10-20); Calcium 8.3 mg/dl (8.6-10.3); Creatinine Clr Calc Pharmacy 53.7 ml/min; Est GFR (African American) 63.8 ml/min; Est GFR (Non-African American) 55.1 ml/min; Phosphorus 3.5 mg/dl (2.5-4.9); Potassium 4.6 mmol/L (3.5-5.1)
[2023-10-27 07:11] LABS: Estimated Average Glucose 163 mg/dl; Hemoglobin A1C 7.3 % (4.5-5.6)
[2023-10-27 07:46] VITALS: BP 109/68; PULSE 78; RESP 16; O2SAT 96
--- NOTE | 2023-10-27 08:17 | Orthopedic Progress Note ---
Date of Service October 27, 2023 Assessment & Plan (1) Knee osteoarthritis: Plan: POD #1 s/p Right TKA, doing as well as expected. Resume diet. WBAT with walker. OOB to chair. Continue pain control. DVT prophylaxis: TEDs 3 weeks, foot pumps while in hospital, ASA 81 mg BID for 6 weeks. PT/OT. D/C planning for later today if passes PT. Appreciate Hospitalist input. Admission and Anticipated Discharge Date Admission Date: October 26, 2023 Subjective Doing fine, controlled right knee discomfort. Physical Exam Physical Exam: RLE: BCR < 2 sec. Sensation to light touch intact distally. Unable to preform straight leg raise today. Wiggling ankle and toes. Calf soft and non-tender. Dressing is clean, dry, intact. Results & Data Vital Signs (Past 12 Hours) Vital Signs Temp Pulse Resp BP Pulse Ox O2 Del Method 10/27/23 07:46 36.7 C 78 16 109/68 96 CPAP 10/27/23 03:00 36.7 C 80 18 137/71 100 Room Air 10/26/23 23:12 36.6 C 81 18 126/69 95 Room Air 10/26/23 21:15 Room Air Laboratory Results Laboratory Results WBC 9.41 K/ul (4.8-10.8) 10/27/23 05:16 RBC 3.37 M/uL (4.20-5.40) L 10/27/23 05:16 Hgb 10.4 g/dl (12.0-16.0) L 10/27/23 05:16 Hct 31.8 % (37.0-47.0) L 10/27/23 05:16 MCV 94.4 fL (80.0-100.0) 10/27/23 05:16 MCH 30.9 pg (25.0-34.0) 10/27/23 05:16 MCHC 32.7 g/dL (32.0-36.0) 10/27/23 05:16 RDW Std Deviation 43.8 fL (36.4-46.3) 10/27/23 05:16 RDW Coeff of Abel 12.7 % (11.5-14.5) 10/27/23 05:16 Plt Count 280 K/uL (130-400) 10/27/23 05:16 MPV 9.7 fL (9.4-12.4) 10/27/23 05:16 Sodium 135 mmol/L (136-145) L 10/27/23 05:16 Potassium 4.6 mmol/L (3.5-5.1) 10/27/23 05:16 Chloride 107 mmol/L (98-107) 10/27/23 05:16 Carbon Dioxide 23 mmol/L (21-32) 10/27/23 05:16 Anion Gap 5 (3-11) 10/27/23 05:16 BUN 24 mg/dl (6-23) H 10/27/23 05:16 Creatinine 1.06 mg/dl (0.6-1.2) 10/27/23 05:16 Est Cr Clr Drug Dosing 53.7 ml/min 10/27/23 05:16 Est GFR ( Amer) 63.8 ml/min 10/27/23 05:16 Est GFR (Non-Af Amer) 55.1 ml/min 10/27/23 05:16 BUN/Creatinine Ratio 22.6 (10-20) H 10/27/23 05:16 Glucose 103 mg/dl (70-99(Fasting)) H 10/27/23 05:16 POC Glucose 142 mg/dl (70-99) H 10/27/23 07:44 Estimat Average Glucose 163 mg/dl 10/27/23 05:16 Hemoglobin A1c 7.3 % (4.5-5.6) H 10/27/23 05:16 Calcium 8.3 mg/dl (8.6-10.3) L 10/27/23 05:16 Phosphorus 3.5 mg/dl (2.5-4.9) 10/27/23 05:16 Magnesium 2.0 mg/dl (1.7-2.4) 10/27/23 05:16 Impressions Knee X-Ray 10/26/23 09:40 TWO VIEWS RIGHT KNEE CLINICAL HISTORY: Postoperative examination. FINDINGS: AP and crosstable lateral portable views of the right knee are obtained. A right knee arthroplasty is in near anatomic alignment. There has been undersurface remodeling of the patella. No acute fracture is seen. There are expected postoperative changes around the knee including soft tissue edema and subcutaneous gas. IMPRESSION: Expected postoperative changes status post right knee arthroplasty. No acute fracture is seen. ACT 112: Negative or not required by law. Electronically signed by: Moncho Frias M.D. 10/26/2023 10:28 AM
[2023-10-27] MEDS: EZETIMIBE 10 MG TAB PO SCH (08:32)
[2023-10-27] MEDS: PANTOprazole 40 MG TAB PO SCH (08:32)
[2023-10-27] MEDS: lisinopril 10 MG TAB PO SCH (08:32)
[2023-10-27] MEDS: MULTIVITAMIN TAB PO SCH (08:32)
[2023-10-27] MEDS: ROSUVASTATIN CALCIUM 20 MG TAB PO SCH (08:32)
[2023-10-27] MEDS: ASPIRIN 81 MG ECTAB PO SCH (08:33)
[2023-10-27] MEDS: CITALOPRAM 20 MG TAB PO SCH (08:33)
[2023-10-27] MEDS ORDERED: NON-FORMULARY MEDICATION (Insulin Glargine [Lantus Solostar U-100 Insulin] 100 unit/mL (3 SQ SCH (09:00)
[2023-10-27] MEDS ORDERED: EMPAGLIFLOZIN 25 MG TAB PO SCH (09:00)
--- NOTE | 2023-10-27 11:27 | Discharge Summary ---
Date of Service October 27, 2023 Principal Diagnosis right total knee arthroplasty Discharge Exam RLE: BCR < 2 sec. Sensation to light touch intact distally. Unable to preform straight leg raise today. Wiggling ankle and toes. Calf soft and non-tender. Dressing is clean, dry, intact. Discharge Data Allergies Allergy/AdvReac Type Severity Reaction Status Date / Time pregabalin Allergy Mild Leg Verified 10/26/23 05:50 swelling blue dye Allergy Unknown Leg Verified 10/26/23 05:50 swelling duloxetine Allergy Unknown Leg Verified 10/26/23 05:50 swelling gabapentin Allergy Unknown Hands/joint Verified 10/26/23 05:50 swelling meloxicam Allergy leg Verified 10/26/23 06:18 swelling procaine [From Novocain] AdvReac see Verified 10/26/23 06:18 notation Consultations 10/26/23 09:40 Consult Hospitalist Routine Procedures Performed Operation Date: 10/26/23 07:00 Actual Procedures p Right Total Knee Arthroplasty(Right) - Ac Medina MD Ordered Studies 10/26/23 05:00 US - OR guided needle placemen Routine Hospital Course (1) Status post total right knee replacement: Plan POD1 s/p total knee arthroplasty WBAT with walker PT/OT Diet - regular Frequently ice and elevate with blankets stacked under ankle DVT prophylaxis: ASA 81mg BID x 6 weeks, TEDS x 3 weeks, foot pumps while in hospital Pain control: Tylenol 1000mg q 8hrs, oxycodone 5-10mg q4-6 hrs for moderate pain Vitamin C and Iron supplementation BID x 2 weeks Dressing: leave dressing in tact, will change in 2-3 days Discharge home with home health x 2 weeks Follow up as scheduled with [facility] in 2 weeks Total Time Total Time Spent Total Time Spent (In Minutes): 15 Discharge Plan Discharge Items Patient Disposition: Home - Home Health Services Reason For Visit: Right Knee Osteoarthritis Discharge Diagnosis: right knee osteoarthritis Activity: As commented below Lifting: None Bathing: Keep incision dry and May shower/bathe in 3 days Sexual Activity: Wait until after follow-up appointment Exercise/Sports: Wait until after follow-up appointment Weightbearing Comment: as tolerated with walker Non-emergency contact: Surgeon Call non-emergency contact if: you have any medication questions, your pain is not controlled, your temperature is above 101.5, your wound has increased drainage and your wound pain has increased Follow-up/Referrals: Ac Medina MD [Physician] - 10/28/23 1:30 pm Pastor Castellano MD [Primary Care Provider] - Diet: Regular Addtl Attending Provider Instructions: POST OPERATIVE DISCHARGE INSTRUCTIONS Pain Control Please take the follow medications for pain control, as well as icing and elevating your operative extremity. Pain after surgery is to be expected. We may not be able to take away all of your pain, but the goal is to make your pain manageable - Extra strength Tylenol 500mg (1 tab) every 8 hours, Max 3,000mg/24 hours - Percocet (Oxycodone/Tylenol) 5/325-10mg (1-2tabs) every 4-6 hours as needed Additional medications - Colace 100 mg twice daily while on pain medication. This is [id number]. Hold for soft stools. - Tylenol 1000 mg every 8 hours as needed for pain. May take scheduled for the first 5 to 7 days after surgery. - Iron supplement 324 milligrams twice daily. Take with vitamin C. Obtain tsoe-vwe-ylgwijd. - Vitamin C 500 mg twice daily. Take with iron supplement. Obtain zpjk-vrv-pufdnil. - Aspirin 81 mg twice daily x 6 weeks after your surgery. This is to thin your blood to prevent a blood clot. Take for 6 weeks after surgery. DVT Prophylaxis With any surgery, you are at increased risk for blood clots. Please take the follow measures to prevent blood clots and read the warning signs to watch for. Please take the follow anticoagulant: Aspirin 81 mg twice daily. Take for 6 weeks after surgery. If you were given REJI compression stockings, these are to be worn on both legs for 18-20 hours daily for 2 weeks, or for 3 weeks for any lower extremity surgery. Warning signs: Calf pain, lower extremity swelling, numbness/tingling, skin discoloration, increased pain, shortness of breath, chest pain. Please contact our office if you experience any of these symptoms or call 911 if you are having trouble breathing. Ice Ice your operative site at least 5 times a day for 15-30 minutes at a time, for the first three days, then as needed. This will help to reduce swelling and pain. Make sure you have a thin cloth between the ice or cooling unit and your skin to prevent johnston bite. This is especially important if you received a nerve block. Diet/Nausea/Vomiting Start by drinking clear liquids and eating crackers. If you can tolerate this, then you may resume your normal diet. If you feel nauseated or vomit, take Zofran/ondansetron (if prescribed). Please call our office if you have intractable nausea or vomiting, or, if after hours, you may go to the Emergency Room for help. Surgical Dressing Please leave on any dressing until you are seen by either PT or PA for your post-operative appointment, unless you are otherwise instructed. If there are any issues with your dressing please give our office a call. Weight bearing, Range of Motion, Activity You will be weight bearing as tolerated on your operative site. you may use crutches or walker to assist in ambulation at all times. Physical therapy You will do your rehab for the first two weeks with home health. Then you will begin outpatient physical therapy. It is very important you follow your rehab protocol and do your exercises as instructed by your provider and physical therapist. Your therapist will progress your range of motion as instructed. Allowed for quad sets, ankle pumps, gluteal squeezes as directed by your therapist. Wound care and showering We will inspect your wound at your first post-operative visit. It is normal to see some dried blood on the dressing. Do not remove your dressing, paper strips or sutures yourself unless otherwise instructed. Showering is allowed post op day 3. Do not scrub or remove any dressings, unless you are otherwise instructed. Once your dressing is changed in the office to the water-resistant dressing. You can shower with this on as long as all the edges are in tact. To promote wound healing, we recommend taking a multi-vitamin, or taking 500mg Vitamin C supplement twice a day for two weeks and 325mg Iron supplement twice a day for two weeks. This is especially important if you had a total joint replacement. Constipation Constipation is a common side effect of narcotic pain medication, dehydration after surgery and iron supplement (if you were instructed to begin that after surgery). We recommend purchasing an kcri-blt-kysteoo laxative such as Milk of Magnesia, Colace, Dulcolax, Miralax or Senna from a local pharmacy, and taking it as instructed. Stay hydrated and you may increase your fiber in your diet as well. Call our clinic if any questions. Driving You may not drive while taking narcotic pain medication or while in a cast, splint, sling or brace. Driving will be discussed at your first post op appointment Return to Work Your return to work depends on what surgery was done and what type of work you do. Please bring any paperwork your employer needs completed to your first post-operative visit. Also, bring a description of your job duties, as this helps us to understand what risks you may face at work. Travel Avoid long distance travel (greater than 1 hour) in airplanes and cars for the first 6 weeks after surgery. Follow-up Please attend your post operative appointments as scheduled. At these appointments, we may do dressing change and remove any sutures/davy/Zip-line 10-14 days after your surgery. If you do not know your post operative appointment dates or times please call the office at [phone] When to call the office It is normal to have swelling and bruising in the limb that was operated on. This will improve with time. It is also normal to have fevers for the first 2 days after surgery. Reasons you should call your doctor include: Uncontrolled pain; Nausea, vomiting, or constipation that does not improve with medication; Fevers over 101.5, chills, sweats; Drainage or bleeding from the wound; Foul odor; Spreading areas of redness; calf pain or swelling, shortness of breath, chest pain; Any other concerns You may call the office at [phone]. If it is a medical emergency please call 911. Pending Studies at Discharge: No Stand-Alone Forms: My [facility] Medications and DC Order Prescriptions: New aspirin 81 mg Tablet,Delayed Release (Dr/Ec) 81 mg PO BID 42 Days Qty: 84 0RF ferrous gluconate 324 mg (38 mg iron) Tablet 324 mg PO BIDM 14 Days Qty: 28 0RF ascorbic acid (vitamin C) [Vitamin C] 500 mg Tablet 500 mg PO BIDM 14 Days Qty: 28 0RF docusate sodium 100 mg Capsule 100 mg PO BID 14 Days Qty: 28 0RF oxycodone 5 mg Tablet 5 - 10 mg PO Q4H PRN (Reason: pain) Qty: 18 0RF Rx Instructions: 5mg for pain 1-5 10mg for pain 6-10 acetaminophen [Tylenol Extra Strength] 500 mg tablet 500 mg PO Q8H MDD 3000 mg tot in 24 hours PRN (Reason: pain) Qty: 60 0RF Continued (DME) blood-glucose meter [OneTouch Verio Flex meter] [facility] See Rx Instructions miscellaneous .MEDSUPPLY Qty: 1 0RF Rx Instructions: As directed Jardiance 25 mg tablet 25 mg PO QAM Qty: 90 3RF rosuvastatin [Crestor] 40 mg tablet 40 mg PO QAM Qty: 30 5RF Rx Instructions: TAKE ONE TABLET BY MOUTH DAILY pantoprazole [Protonix] 40 mg tablet,delayed release (DR/EC) 40 mg PO QAM (DME) OneTouch Verio test strips Strip See Rx Instructions miscellaneous .MEDSUPPLY Qty: 400 3RF Rx Instructions: Check blood sugars 4x a day fexofenadine [Josefina Allergy] 180 mg tablet 180 mg PO DAILY PRN (Reason: Allergy Symptoms) citalopram 20 mg tablet 20 mg PO QAM oxycodone-acetaminophen 5-325 mg tablet 1 tab PO Q4H PRN (Reason: pain) nystatin 100,000 unit/gram powder 1 appln topical TID PRN (Reason: rash under breasts) Qty: 1 Rx Instructions: apply 2-3 times/day as directed cyclobenzaprine 5 mg tablet 5 - 10 mg PO UD PRN (Reason: muscle spasms) Rx Instructions: Take 5mg in the morning and 10mg at bedtime PO use as directed PRN; dextroamphetamine-amphetamine [Adderall] 20 mg tablet 20 mg PO BID (DME) lancets [OneTouch Delica Lancets] 33 gauge [facility] See Rx Instructions .ROUTE .MEDSUPPLY Qty: 100 Rx Instructions: Test blood sugars 1 times a day (DME) [employer]acel PharmaceuticalsTouch Verio High Control Solution See Rx Instructions .ROUTE .MEDSUPPLY Qty: 1 Rx Instructions: Test blood sugar once daily PRN fluticasone propionate [Flonase Allergy Relief] 50 mcg/actuation spray,suspension 1 spray intranasal DAILY PRN (Reason: Congestion) Rx Instructions: in each nostril insulin glargine [Lantus Solostar U-100 Insulin] 100 unit/mL (3 mL) insulin pen 90 unit subcut DAILY Patient Comments: 010 levothyroxine 50 mcg tablet 50 mcg PO QAM lisinopril 10 mg tablet 10 mg PO QAM ergocalciferol (vitamin D2) 1,250 mcg (50,000 unit) capsule 1,250 mcg PO UD Patient Comments: wednesday/ Rx Instructions: TAKE 1 CAPSULE BY MOUTH TWICE WEEKLY ezetimibe [Zetia] 10 mg tablet 10 mg PO QAM insulin aspart U-100 [Novolog FlexPen U-100 Insulin] 100 unit/mL (3 mL) insulin pen 40 unit subcut UD Rx Instructions: inject 40 units plus sliding scale TDD 120 units; subcut daily; Admission Data Admit Date/Time: 10/26/23 09:40 Attending Provider: Ac Medina Admit Provider: Ac Medina Primary Care Provider: Pastor Castellano Other Providers: [facility],Home Healthcare; Jenny Morales; Kristen Cherry I.; David Aguilar; Lisandra Barros; Kae Alcantar; Carley Yañez; Mary Ellen Mays; Kevin Recinos; Anderson Ng; Sebastian Jones; Foster Dykes; Naye Salomon; Delmar Cr; Mauro Zuniga; Avril Parra; Velvet Peralta; Skyla Navarro; Gisela Whitfield; Teodora Nuñez; Jamilah Jack I.; Mario Zaragoza; Bessy Wilcox; Luke Mckee; Celestine Richardson; Baldev Penaloza; Kevin Rodriguez; Ora Rogers; Ana Maria Dumas; Lizbeth Choudhury; Nicholas Paiz; Phu Sanz Other Interventions: Discharge Summary Assessment (RN) Last Done: 10/27/23 09:42
--- NOTE | 2023-10-27 11:56 | Hospitalist Progress Note ---
Date of Service October 27, 2023 Assessment & Plan (1) Status post total right knee replacement: Plan Jesica Chun is a 63y/o F with PMHx of dyslipidemia, hypothyroidism, DM type II, diabetic polyneuropathy, ZAN on CPAP, HTN, major depressive disorder, fibromyalgia, history of migraines and other problems listed below who was referred to our [facility] Hospitalist Team for post-operative medical management after undergoing right total knee arthroplasty with Dr. Medina on 10/25. S/P Right Total Knee Replacement POD#1 s/p right total knee arthroplasty with Dr. Medina. Activity and wound care orders as per ortho Pain control with bowel regimen PT/OT Monitor H/H for acute blood loss anemia and transfuse blood products PRN EBL: 75mL & Pre-Operative Hgb: 13.2 [09/28/23] --> 10.4 today Patient requesting to resume her home Percocet at discharge. Reviewed discharge medications. Discussed with Dr. Medina and asked to d/c oxycodone and change Tylenol to 500mg BID so that patient does not exceed 3gm Tylenol/day. Also discussed with nursing. HTN: Chronic, stable, BP controlled Continue lisinopril DM Type II: Hgb A1c 7.3 Hold home agents, basal/bolus regimen while inpatient, glycemic pharmacy con sulted Blood sugars controlled Resume home regimen at discharge ZAN on CPAP: CPAP as per home settings Other Chronic Medical Conditions: Dyslipidemia, depression, ADD, hypothyroidism and seasonal allergies --> Continue home medications for these specific conditions. DVT PROPHYLAXIS ASA 81 mg BID as per Ortho Thank you for this consultation. We will follow the patient with you during their hospital stay. You can reach a member of the [facility] Hospitalist Team 28/09 via the [facility] Hospitalist role in [place] [employer]. Admission and Anticipated Discharge Date Admission Date: October 26, 2023 Supervising Physician Co-Signing Physician Notes Attending Addendum: Case reviewed with the advanced practitioner. I have reviewed the advanced practitioner's documentation on the date of service referenced in note, and I agree with plan of care please refer to her notes for full details Foster Dykes MD Subjective Follow-up for medical management s/p right TKA. Patient seen and examined. Reports her pain is well-controlled. Eager to be discharged. Denies chest pain and shortness of breath. Reports an episode of vomiting early this a.m. secondary to taking pain medication on empty stomach. Was able to tolerate breakfast without difficulty. Denies abdominal pain. Urinating without difficulty. Physical Exam Constitutional: WD/WN, vitals as above no acute distress Respiratory: normal respiratory effort, lungs clear to auscultation Cardiovascular: Rate/Rhythm: regular rate and regular rhythm Extremities: no edema Musculoskeletal: s/p right knee surgery, vaishnavi wrap intact, CSM checks intact RLE Skin: no rashes, warm and dry Neurologic: no focal motor deficits Psychiatric: A+Ox3, euthymic affect Results & Data Results & Data Vital Signs (Past 12 Hours) Vital Signs Temp Pulse Resp BP Pulse Ox O2 Del Method 10/27/23 07:46 36.7 C 78 16 109/68 96 CPAP 10/27/23 03:00 36.7 C 80 18 137/71 100 Room Air Laboratory Results Short CBC 10/27/23 Range/Units 05:16 WBC 9.41 (4.8-10.8) K/ul Hgb 10.4 L (12.0-16.0) g/dl Hct 31.8 L (37.0-47.0) % Plt Count 280 (130-400) K/uL [facility] 10/27/23 05:16 Sodium 135 L Potassium 4.6 Chloride 107 Carbon Dioxide 23 BUN 24 H Creatinine 1.06 Glucose 103 H Calcium 8.3 L Diagnostic Findings Short CBC 10/27/23 Range/Units 05:16 WBC 9.41 (4.8-10.8) K/ul Hgb 10.4 L (12.0-16.0) g/dl Hct 31.8 L (37.0-47.0) % Plt Count 280 (130-400) K/uL [facility] 10/27/23 05:16 Sodium 135 L Potassium 4.6 Chloride 107 Carbon Dioxide 23 BUN 24 H Creatinine 1.06 Glucose 103 H Calcium 8.3 L
[2023-10-28] MEDS ORDERED: ERGOCALCIFEROL 1250 MCG (50,000 UNITS) CAP PO SCH (09:00)
== END 2023-10-27 14:30 | disposition home health service (06) ==
LOC: 3E 05:25 → ASU 05:25